=== PATIENT | female | born 1980 | race African-American/Black ===

== ENCOUNTER → 2016-07-19 | Outpatient (CLI) | payer OTHER ==
[~2016-07-19] MED LIST: AMOX500T PO; ATEN50TA PO; BACT800T5 PO; CEPH-460 PO; FERR325T PO; IBUP800T23 PO; INFE50IN2 IV; TRAM50TA PO
[2016-07-19 07:44] LABS: MEAN CORPUSCULAR HGB CONC 28.7 % (32.0-36.0)
[2016-07-19 08:04] LABS: AUTOMATED NEUTROPHIL # 2.8 TH/MM3 (1.8-7.7); BASOPHIL % 0.8 % (0.0-2.0); HEMATOCRIT 27.1 % (35.0-46.0); LYMPH % 25.3 % (9.0-44.0); LYMPHOCYTE # 1.2 TH/MM3 (1.0-4.8); MEAN CELL VOLUME 60.9 FL (80.0-100.0); MEAN CORPUSCULAR HEMOGLOBIN 17.5 PG (27.0-34.0); MONO % 14.4 % (0.0-8.0); NEUT % 58.5 % (16.0-70.0); PLATELET COUNT 181 TH/MM3 (150-450); RED BLOOD COUNT 4.45 MIL/MM3 (4.00-5.30); RED CELL DISTRIBUTION WIDTH 19.4 % (11.6-17.2); WHITE BLOOD COUNT 4.8 TH/MM3 (4.0-11.0)
[2016-07-19 08:05] LABS: HEMO FLAGS AUTO DIFF
[2016-07-19 08:24] LABS: TRANSFERRIN IRON PROFILE 414 MG/DL (200-360)
[2016-07-19 08:52] LABS: ACANTHOCYTES OCC (NORMAL); KERATOCYTES OCC (NORMAL); OVALOCYTES 1+ (NORMAL)
[2016-07-19 08:53] LABS: PLATELET ESTIMATE SMEAR NORMAL (NORMAL); PLATELET MORPHOLOGY NORMAL (NORMAL); SCAN/DIFF AUTO DIFF CONFIRMED
== END ==
LOC: CLAB 07:40
PROVIDERS: ATTEND Nurse Practitioner Family
DX: N92.0 Excessive and frequent menstruation with regular cycle (principal); D50.9 Iron deficiency anemia, unspecified
CPT/HCPCS: 36415; 83540; 83550; 85025

== ENCOUNTER 2016-09-05 21:35 | Emergency (ER) | payer OTHER ==
[~2016-09-05] VITALS: Ht 172.7 cm; Wt 78.0 kg
[~2016-09-05 21:35] MED LIST changes: -BACT800T5 PO; -CEPH-460 PO; -IBUP800T23 PO; -INFE50IN2 IV; -TRAM50TA PO
[2016-09-05 21:38] VITALS: BP 143/98; PULSE 82; RESP 16; TEMP 98.6; O2SAT 100
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
[2016-09-05] MEDS ORDERED: ACETAMINOPHEN 500 MG CPLT PO ONE (22:00)
[2016-09-05 22:15] LABS: BLOOD, URINE NEG (NEG); COMMENT (UR) CULT NOT INDICATED; CULTURE IF INDICATED CULT NOT INDICATED; GLUCOSE,URINE NEG (NEG); KETONE, URINE NEG (NEG); MUCUS URINE FEW /lpf (OCC); NITRITE,URINE NEG (NEG); SQUAMOUS EPITHELIAL CELL URINE 2 /hpf (0-5); URINE COLOR YELLOW (YELLW/STRAW)
[2016-10-08] MEDS ORDERED: INFE50IN2 IV (13:28)
== END 2016-09-05 22:50 | disposition home or self-care (01) ==
LOC: NEPE 21:35
DX: S00.83XA Contusion of other part of head, initial encounter (principal); I10 Essential (primary) hypertension; D64.9 Anemia, unspecified; F17.210 Nicotine dependence, cigarettes, uncomplicated; W22.8XXA Striking against or struck by other objects, initial encounter; Y92.9 Unspecified place or not applicable
CPT/HCPCS: 81001; 99283

== ENCOUNTER → 2016-10-14 | Outpatient (CLI) | payer OTHER ==
[~2016-10-14] MED LIST changes: -AMOX500T PO; -FERR325T PO; +IBUP800T23 PO; +INFE50IN2 IV; +TRAM50TA PO
[2016-10-14 15:23] LABS: BLOOD, URINE NEG (NEG); COMMENT (UR) CULT NOT INDICATED; CULTURE IF INDICATED CULT NOT INDICATED; GLUCOSE,URINE NEG (NEG); KETONE, URINE NEG (NEG); MUCUS URINE MOD /lpf (OCC); NITRITE,URINE NEG (NEG); PH, URINE 5.5 (5.0-8.5); SQUAMOUS EPITHELIAL CELL URINE 5 /hpf (0-5); URINE COLOR YELLOW (YELLW/STRAW)
== END ==
LOC: CLAB 14:43
PROVIDERS: ATTEND Physician Assistant Medical
DX: R30.0 Dysuria (principal)
CPT/HCPCS: 81001

== ENCOUNTER 2016-10-17 13:19 | Emergency (ER) | payer OTHER ==
[~2016-10-17] VITALS: Ht 167.6 cm; Wt 77.0 kg
[~2016-10-17 13:19] MED LIST changes: -IBUP800T23 PO; -TRAM50TA PO
[2016-10-17 13:23] VITALS: BP 142/99; PULSE 64; RESP 16; TEMP 98.2; O2SAT 100
[2016-10-17 13:35] LABS: MEAN CORPUSCULAR HGB CONC 29.9 % (32.0-36.0)
[2016-10-17 13:41] VITALS: BP_SYST 138; BP_SYST 140; BP_SYST 141; BP_DIAS 79; BP_DIAS 82; BP_DIAS 86; RESP 18
[2016-10-17] MEDS ORDERED: traMADol HCL 50 MG TAB PO ONE (14:00)
[2016-10-17] MEDS ORDERED: IBUPROFEN 800 MG TAB PO ONE (14:00)
--- NOTE | 2016-10-17 14:00 | PD ---
HPI . 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 She states that she has not been able to see a ROLL PANNER because of insurance. She reports that she now has insurance so should be able to see ROLL PANNER in the near future. She reports no new or different symptoms today. Pain is described as crampy and constant and rated 9/10. No modifying factors. PFSH Past Medical History Hx Anticoagulant Therapy: No Anemia: Yes Cardiovascular Problems: Yes (HTN) Diabetes: No Diminished Hearing: No Gastrointestinal Disorders: No Genitourinary: No Headaches: Yes Hypertension: Yes Musculoskeletal: No Neurologic: No Reproductive: No Respiratory: No Immunizations Current: Yes Migraines: Yes Pneumonia: Yes Tetanus Vaccination: > 5 Years Influenza Vaccination: No PNEUMOCCOCAL Vaccine (Year): 2 ?: Not : 4 Para: 4 Miscarriage: 0 : 0 Tubal Ligation: Yes (2007) Past Surgical History Abdominal Surgery: Yes ( 12/15/05, TUBAL LIGATION 12/15/05) Section: Yes (X2) Neurologic Surgery: No Other Surgery: Yes Social History Alcohol Use: Yes (OCCASSIONAL) Tobacco Use: Yes (1 PPD) Substance Use: Yes (DENIES) Allergies-Medications (Allergen,Severity, Reaction): Coded Allergies: No Known Allergies (Unverified , 10/17/16) Reported Meds & Prescriptions Reported Meds & Active Scripts Active Tramadol (Tramadol HCl) 50 Mg Tab 50 Mg PO Q4H PRN Ibuprofen 800 Mg Tab 800 Mg PO Q8H PRN Atenolol 50 Mg Tab 50 Mg PO DAILY Reported Infed Inj (Iron Dextran) 100 Mg/2 Ml Inj 200 Mg IV WEEKLY Review of Systems Genitourinary: Positive: Pelvic Pain, Vaginal Bleeding Physical Exam Narrative GENERAL: Patient is awake and alert and in no acute distress. SKIN: Warm and dry. HEAD: Atraumatic. Normocephalic. EYES: Pupils equal and round. ENT: No nasal bleeding or discharge. Mucous membranes pink and moist. NECK: Trachea midline. Neck is supple. CARDIOVASCULAR: Regular rate and rhythm. RESPIRATORY: No accessory muscle use. GASTROINTESTINAL: Abdomen soft. Suprapubic tenderness. Nondistended. MUSCULOSKELETAL: No obvious deformities. No edema. NEUROLOGICAL: Awake and alert. No obvious cranial nerve deficits. Motor grossly within normal limits. Normal speech. PSYCHIATRIC: Appropriate mood and affect; insight and judgment normal. Data Data Last Documented VS Vital Signs Date Time Temp Pulse Resp B/P Pulse Ox O2 Delivery O2 Flow Rate FiO2 10/17/16 13:41 72 18 141/79 66 18 138/82 86 18 140/86 10/17/16 13:23 98.2 100 Orders Complete Blood Count With Diff (10/17/16 13:33) Ed Urine Pregnancytest Poc (10/17/16 13:33) Orthostatic Vital Signs (10/17/16 13:33) Ibuprofen (Motrin) (10/17/16 14:00) Tramadol (Ultram) (10/17/16 14:00) Labs Laboratory Tests Test 10/17/16 13:30 White Blood Count 5.2 TH/MM3 Red Blood Count 4.58 MIL/MM3 Hemoglobin 10.0 GM/DL Hematocrit 33.4 % Mean Corpuscular Volume 72.9 FL Mean Corpuscular Hemoglobin 21.8 PG Mean Corpuscular Hemoglobin 29.9 % Concent Red Cell Distribution Width 25.9 % Platelet Count 323 TH/MM3 Mean Platelet Volume 7.2 FL Neutrophils (%) (Auto) 71.2 % Lymphocytes (%) (Auto) 19.0 % Monocytes (%) (Auto) 8.6 % Eosinophils (%) (Auto) 0.8 % Basophils (%) (Auto) 0.4 % Neutrophils # (Auto) 3.8 TH/MM3 Lymphocytes # (Auto) 1.0 TH/MM3 Monocytes # (Auto) 0.4 TH/MM3 Eosinophils # (Auto) 0.0 TH/MM3 Basophils # (Auto) 0.0 TH/MM3 CBC Comment AUTO DIFF Differential Comment AUTO DIFF CONFIRMED MDM Medical Decision Making Medical Screen Exam Complete: Yes Emergency Medical Condition: Yes Differential Diagnosis Differential diagnosis of pelvic pain includes but is not limited to UTI, PID, ectopic , spontaneous AB, constipation, viral illness Narrative Course This patient presents with ongoing pelvic pain. She has had problems for years. I have ordered orthostatic vital signs and a CBC. Assuming that these studies are reasonable, she will be stable for evaluation as an outpatient. Orthostatic vital signs are negative. CBC Diagram 10/17/16 13:30 This patient is hemodynamically stable. Emergency Department evaluation reveals no emergency medical condition. The patient is stable for discharge to home. 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
[2016-10-17 14:03] LABS: AUTOMATED NEUTROPHIL # 3.8 TH/MM3 (1.8-7.7); BASOPHIL % 0.4 % (0.0-2.0); EOSINOPHIL % 0.8 % (0.0-4.0); HEMATOCRIT 33.4 % (35.0-46.0); MEAN CELL VOLUME 72.9 FL (80.0-100.0); MEAN CORPUSCULAR HEMOGLOBIN 21.8 PG (27.0-34.0); MONO % 8.6 % (0.0-8.0); NEUT % 71.2 % (16.0-70.0); PLATELET COUNT 323 TH/MM3 (150-450); RED BLOOD COUNT 4.58 MIL/MM3 (4.00-5.30); RED CELL DISTRIBUTION WIDTH 25.9 % (11.6-17.2); WHITE BLOOD COUNT 5.2 TH/MM3 (4.0-11.0)
[2016-10-17 14:04] LABS: HEMO FLAGS AUTO DIFF
[2016-10-17] MEDS ORDERED: IBUP800T23 PO (14:14)
[2016-10-17] MEDS ORDERED: TRAM50TA PO (14:14)
[2016-10-17 14:25] LABS: SCAN/DIFF AUTO DIFF CONFIRMED
[2016-10-17 14:51] LABS: BLOOD, URINE LARGE (NEG); GLUCOSE,URINE NEG (NEG); KETONE, URINE TRACE mg/dL (NEG); NITRITE,URINE NEG (NEG)
[2016-10-17 14:55] LABS: METHOD OF COLLECTION CLEAN CATCH; URINE COLOR LIGHT-BROWN (YELLW/STRAW)
[2016-10-17 14:56] LABS: COMMENT (UR) CULT NOT INDICATED; CULTURE IF INDICATED CULT NOT INDICATED; RBC, URINE INNUM /hpf (0-3)
[2016-10-17 15:09] VITALS: BP 138/74
== END 2016-10-17 15:11 | disposition home or self-care (01) ==
LOC: PHED 13:19
DX: N93.8 Other specified abnormal uterine and vaginal bleeding (principal); I10 Essential (primary) hypertension
CPT/HCPCS: 81001; 84703; 85025; 99283

== ENCOUNTER 2016-10-23 07:11 | Emergency (ER) | payer OTHER ==
[~2016-10-23] VITALS: Ht 165.1 cm; Wt 80.0 kg
[~2016-10-23 07:11] MED LIST changes: +IBUP800T23 PO; +TRAM50TA PO
[2016-10-23 07:15] VITALS: BP 139/89; PULSE 113; RESP 20; TEMP 99.3; O2SAT 97
[2016-10-23] MEDS ORDERED: CEPH-460 PO (07:54)
[2016-10-23] MEDS ORDERED: BACT800T5 PO (07:54)
[2016-10-23] MEDS ORDERED: IBUP800T23 PO (07:54)
--- NOTE | 2016-10-23 07:54 | PD ---
HPI Chief Complaint: Skin Problem Time Seen by Provider: 07:52 Travel History International Travel<30 days: No Contact w/Intl Traveler<30days: No Traveled to known affect area: No History of Present Illness HPI 35-year-old female presents to the emergency Department with complaint of an area of redness, swelling, pain to her left forearm that is draining white drainage 2 days. Denies fever, vomiting. Denies paresthesias, loss of sensation, decreased range motion, decreased strength to the affected extremity. Has not taken any medications to alleviate her symptoms. Has squeezed the area to drain it. No known allergies. Has no other medical complaints. No other modifying factors or associated signs and symptoms. PFSH Past Medical History Hx Anticoagulant Therapy: No Anemia: Yes Cardiovascular Problems: No Chemotherapy: No Cerebrovascular Accident: No Diabetes: No Diminished Hearing: No Gastrointestinal Disorders: No Genitourinary: No Headaches: Yes Hypertension: Yes Musculoskeletal: No Neurologic: No Reproductive: No Respiratory: No Immunizations Current: Yes Migraines: Yes Pneumonia: Yes PNEUMOCCOCAL Vaccine (Year): 2 ?: Not LMP: 10/17/16 : 4 Para: 4 Miscarriage: 0 : 0 Tubal Ligation: Yes (2007) Past Surgical History Abdominal Surgery: Yes ( 12/15/05, TUBAL LIGATION 12/15/05) Section: Yes (X2) Hysterectomy: No Neurologic Surgery: No Other Surgery: Yes Social History Alcohol Use: Yes (OCCASSIONAL) Tobacco Use: Yes (1 PPD) Substance Use: Yes (DENIES) Allergies-Medications (Allergen,Severity, Reaction): Coded Allergies: No Known Allergies (Unverified , 10/17/16) Reported Meds & Prescriptions Reported Meds & Active Scripts Active Ibuprofen 800 Mg Tab 800 Mg PO Q6HR PRN Bactrim DS (Sulfamethoxazole-Trimethoprim) 800-160 Mg Tab 1 Tab PO BID 10 Days Keflex (Cephalexin) 500 Mg Cap 500 Mg PO Q6H 10 Days Tramadol (Tramadol HCl) 50 Mg Tab 50 Mg PO Q4H PRN Ibuprofen 800 Mg Tab 800 Mg PO Q8H PRN Atenolol 50 Mg Tab 50 Mg PO DAILY Reported Infed Inj (Iron Dextran) 100 Mg/2 Ml Inj 200 Mg IV WEEKLY Review of Systems Except as stated in HPI: all other systems reviewed are Neg Physical Exam Narrative GENERAL: Well-nourished, well-developed female patient, in no acute distress; afebrile, nontoxic-appearing SKIN: There is an indurated area to the proximal left forearm which measures about 1.5 cm in diameter. It is nonfluctuant and draining purulent drainage. There is a zone of inflammation around it but no lymphangitis. HEAD: Atraumatic. Normocephalic. EYES: Pupils equal and round. No scleral icterus. No injection or drainage. ENT: Mucosa pink and moist. Airway patent. NECK: Trachea midline. CARDIOVASCULAR: Regular rate. RESPIRATORY: No accessory muscle use. GASTROINTESTINAL: Rounded. MUSCULOSKELETAL: No obvious deformities. No clubbing. No cyanosis. No edema. NEUROLOGICAL: Awake and alert. Oriented 3. No obvious cranial nerve deficits. Motor grossly within normal limits. Normal speech. PSYCHIATRIC: Appropriate mood and affect; insight and judgment normal. Data Data Last Documented VS Vital Signs Date Time Temp Pulse Resp B/P Pulse Ox O2 Delivery O2 Flow Rate FiO2 10/23/16 07:15 99.3 113 20 139/89 97 Room Air Orders Ibuprofen (Motrin) (10/23/16 08:00) Wound Culture And Gram Stain (10/23/16 07:51) Tetanus/Diphtheria Tox Adult (Tetanus/Di (10/23/16 08:00) MDM Medical Decision Making Medical Screen Exam Complete: Yes Emergency Medical Condition: Yes Medical Record Reviewed: Yes Differential Diagnosis Abscess, cellulitis, folliculitis Narrative Course 35-year-old female physical exam consistent with an abscess of the left proximal forearm. Patient is afebrile and nontoxic-appearing. She denies fever , vomiting. The abscess is nonfluctuant and draining small amount of serous/ purulent drainage. Wound culture pending. Tetanus updated in the ER. Temperature recheck 98.8 and heart rate recheck 88 bpm. Ibuprofen administered in the ER. Bactrim, Keflex, ibuprofen prescribed for home. Instructed patient to follow up with primary care provider. Patient verbalizes understanding and agreement with treatment plan. Patient is medically cleared and stable for discharge. Discussed reasons to return to the emergency department. Patient agrees with treatment plan. The patients vital signs are stable and the patient is stable for outpatient follow-up and treatment. Patient discharged home, stable and in no acute distress. Diagnosis Primary Impression: Skin abscess Qualified Code: L02.414 - Cutaneous abscess of left upper extremity Referrals: Primary Care Physician Patient Instructions: Abscess (ED), Abscess Follow-up (ED), General Instructions Departure Forms: Tests/Procedures, Work Release Enter return to work date: Oct 24, 2016 Additional Instructions: Complete full course of antibiotics Warm compresses to the affected area Keep area clean and dry Ibuprofen or Tylenol as directed and as needed for pain and inflammation Follow-up with primary care provider Return to emergency department immediately with worsening of symptoms Med/Other Pt SpecificInfo: Prescription(s) given Scripts Ibuprofen 800 Mg [id number] Mg PO Q6HR PRN (PAIN) #30 TAB Ref 0 Prov:Carrie Blanco 10/23/16 Sulfamethoxazole-Trimethoprim (Bactrim DS)800-160 Mg Tab1 Tab PO BID 10 Days Ref 0 Prov:Carrie Blanco 10/23/16 Cephalexin (Keflex)500 Mg [id number] Mg PO Q6H 10 Days Ref 0 Prov:Carrie Blanco 10/23/16 Disposition: 01 DISCHARGE HOME Condition: Stable Carrie Blanco Oct 23, 2016 07:54
[2016-10-23] MEDS ORDERED: TETANUS/DIPHTHERIA TOXOID ADULT 0.5 ML VIAL IM ONE (08:00)
[2016-10-23] MEDS ORDERED: IBUPROFEN 800 MG TAB PO ONE (08:00)
== END 2016-10-23 08:21 | disposition home or self-care (01) ==
LOC: NEPK 07:11
DX: L02.414 Cutaneous abscess of left upper limb (principal); B95.62 Methicillin resistant Staphylococcus aureus infection as the cause of diseases classified elsewhere; I10 Essential (primary) hypertension; F17.200 Nicotine dependence, unspecified, uncomplicated; Z23 Encounter for immunization; Z86.2 Personal history of diseases of the blood and blood-forming organs and certain disorders involving the immune mechanism; Z86.69 Personal history of other diseases of the nervous system and sense organs
CPT/HCPCS: 86403; 87070; 87186; 87205; 90471; 90714

== ENCOUNTER → 2016-12-08 | Outpatient (CLI) | payer OTHER ==
[~2016-12-08] MED LIST changes: +ATEN100T PO; +BACT800T5 PO; +CEPH-460 PO; +HYDR-3533 PO; +HYDR12.56 PO
[2016-12-08 08:29] LABS: HEMATOCRIT 26.9 % (35.0-46.0); MEAN CELL VOLUME 66.8 FL (80.0-100.0); MEAN CORPUSCULAR HEMOGLOBIN 20.1 PG (27.0-34.0); PLATELET COUNT 262 TH/MM3 (150-450); RED BLOOD COUNT 4.03 MIL/MM3 (4.00-5.30); RED CELL DISTRIBUTION WIDTH 19.8 % (11.6-17.2); REVIEW FLAG FINAL; WHITE BLOOD COUNT 5.5 TH/MM3 (4.0-11.0)
[2016-12-08 08:44] LABS: TRANSFERRIN IRON PROFILE 360 MG/DL (200-360)
== END ==
LOC: CLAB 08:01
PROVIDERS: ATTEND Nurse Practitioner Family
DX: D50.9 Iron deficiency anemia, unspecified (principal)
CPT/HCPCS: 36415; 83540; 83550; 85027

== ENCOUNTER 2016-12-18 01:47 | Observation (INO) | payer OTHER ==
[2016-12-18] VITALS (21 sets, daily range): BP systolic 118–202; BP diastolic 73–121; PULSE 63–96; RESP 14–21; TEMP 96.6–98.9; O2SAT 95–100
[~2016-12-18] VITALS: Ht 167.6 cm; Wt 80.0 kg
[~2016-12-18 01:47] MED LIST changes: -ATEN100T PO; -BACT800T5 PO; -CEPH-460 PO; -HYDR12.56 PO; -IBUP800T23 PO; -TRAM50TA PO
[2016-12-18 03:14] LABS: AUTOMATED NEUTROPHIL # 3.6 TH/MM3 (1.8-7.7); BASOPHIL % 0.4 % (0.0-2.0); EOSINOPHIL % 0.3 % (0.0-4.0); HEMATOCRIT 22.9 % (35.0-46.0); LYMPH % 26.8 % (9.0-44.0); LYMPHOCYTE # 1.5 TH/MM3 (1.0-4.8); MEAN CELL VOLUME 70.3 FL (80.0-100.0); MEAN CORPUSCULAR HEMOGLOBIN 21.3 PG (27.0-34.0); MEAN CORPUSCULAR HGB CONC 30.2 % (32.0-36.0); MONO % 9.3 % (0.0-8.0); NEUT % 63.2 % (16.0-70.0); PLATELET COUNT 326 TH/MM3 (150-450); RED BLOOD COUNT 3.26 MIL/MM3 (4.00-5.30); RED CELL DISTRIBUTION WIDTH 22.9 % (11.6-17.2); WHITE BLOOD COUNT 5.7 TH/MM3 (4.0-11.0)
[2016-12-18] MEDS ORDERED: ATENOLOL 50 MG TAB PO ONE (03:30)
[2016-12-18] MEDS ORDERED: ACETAMINOPHEN 325 MG TAB PO ONE (03:30)
--- NOTE | 2016-12-18 03:30 | PD ---
HPI Chief Complaint: Chest Pain Time Seen by Provider: 03:26 Travel History International Travel<30 days: No Contact w/Intl Traveler<30days: No Traveled to known affect area: No History of Present Illness HPI 36-year-old female patient with history of hypertension, ran out of her atenolol , presents to the ER today with one-day history of elevated blood pressure, bilateral leg swelling, chest discomfort which she states had been an 8 out of 10, shortness of breath. She states that she thinks is because her blood pressure is elevated. She states that it is now improving and she is not having a chest pains now. She denies any fevers, vomiting, abdominal pains, or other symptoms. Modifying Factors: None Associated Signs & Symptoms: Elevated blood pressure, chest discomfort, shortness of breath, leg swelling Risk Factors: History of hypertension PFSH Past Medical History Hx Anticoagulant Therapy: No Anemia: Yes Cardiovascular Problems: No Chemotherapy: No Cerebrovascular Accident: No Diabetes: No Diminished Hearing: No Gastrointestinal Disorders: No Genitourinary: No Headaches: Yes Hypertension: Yes Immune Disorder: No Musculoskeletal: No Neurologic: No Reproductive: No Respiratory: No Immunizations Current: Yes Migraines: Yes Pneumonia: Yes Tetanus Vaccination: < 5 Years PNEUMOCCOCAL Vaccine (Year): 2 ?: Not LMP: 12/12/2016 : 4 Para: 4 Miscarriage: 0 : 0 Ectopic : No Ovarian Cysts: No Tubal Ligation: Yes (2007) Past Surgical History Abdominal Surgery: Yes ( 12/15/05, TUBAL LIGATION 12/15/05) AICD: No Section: Yes (X2) Gynecologic Surgery: Yes (C SECTION) Hysterectomy: No Neurologic Surgery: No Other Surgery: Yes Social History Alcohol Use: Yes (OCCASSIONAL) Tobacco Use: Yes (1 PPD) Substance Use: No (DENIES) Allergies-Medications (Allergen,Severity, Reaction): Coded Allergies: *MDRO Multi-Drug Resistant Organism (Verified Adverse Reaction, Unknown, ) 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 Awake and oriented 3. SKIN: Focused skin assessment warm/dry. HEAD: Atraumatic. Normocephalic. EYES: Pupils equal and round. No scleral icterus. No injection or drainage. ENT: No nasal bleeding or discharge. Mucous membranes pink and moist. NECK: Trachea midline. No JVD. CARDIOVASCULAR: Regular rate and rhythm. No murmur appreciated. RESPIRATORY: No accessory muscle use. Clear to auscultation. Breath sounds equal bilaterally. GASTROINTESTINAL: Abdomen soft, non-tender, nondistended. Hepatic and splenic margins not palpable. MUSCULOSKELETAL: No obvious deformities. No clubbing. No cyanosis. No edema. NEUROLOGICAL: Awake and alert. No obvious cranial nerve deficits. Motor grossly within normal limits. Normal speech. PSYCHIATRIC: Appropriate mood and affect; insight and judgment normal. Data Data Last Documented VS Vital Signs Date Time Temp Pulse Resp B/P (MAP) Pulse Ox O2 Delivery O2 Flow Rate FiO2 12/18/16 03:04 98 Room Air 12/18/16 02:51 22 12/18/16 01:48 98.9 94 Orders Orders Electrocardiogram (12/18/16 02:55) Complete Blood Count With Diff (12/18/16 02:55) Basic Metabolic Panel (Bmp) (12/18/16 02:55) Ckmb (Isoenzyme) Profile (12/18/16 02:55) Troponin I (12/18/16 02:55) Chest, Single Ap (12/18/16 02:55) Iv Access Insert/Monitor (12/18/16 02:55) Ecg Monitoring (12/18/16 02:55) Oxygen Administration (12/18/16 02:55) Oximetry (12/18/16 02:55) Atenolol (Tenormin) (12/18/16 03:30) Acetaminophen (Tylenol) (12/18/16 03:30) CKMB (12/18/16 03:05) CKMB% (12/18/16 03:05) Type And Screen (12/18/16 03:59) Red Blood Cells (Rbc) (12/18/16 03:59) Blood Product Administration .UPON TRANSFUSION (12/18/16 03:59) Sodium Chlor 0.9% 250 Ml Inj (Ns 250 Ml (12/18/16 04:00) Admit Order (Ed Use Only) (12/18/16 04:12) Labs Laboratory Tests Test 12/18/16 03:05 White Blood Count 5.7 TH/MM3 Red Blood Count 3.26 MIL/MM3 Hemoglobin 6.9 GM/DL Hematocrit 22.9 % Mean Corpuscular Volume 70.3 FL Mean Corpuscular Hemoglobin 21.3 PG Mean Corpuscular Hemoglobin Concent 30.2 % Red Cell Distribution Width 22.9 % Platelet Count 326 TH/MM3 Mean Platelet Volume 7.0 FL Neutrophils (%) (Auto) 63.2 % Lymphocytes (%) (Auto) 26.8 % Monocytes (%) (Auto) 9.3 % Eosinophils (%) (Auto) 0.3 % Basophils (%) (Auto) 0.4 % Neutrophils # (Auto) 3.6 TH/MM3 Lymphocytes # (Auto) 1.5 TH/MM3 Monocytes # (Auto) 0.5 TH/MM3 Eosinophils # (Auto) 0.0 TH/MM3 Basophils # (Auto) 0.0 TH/MM3 CBC Comment DIFF FINAL Differential Comment Blood Urea Nitrogen 11 MG/DL Creatinine 0.97 MG/DL Random Glucose 93 MG/DL Calcium Level 8.0 MG/DL Sodium Level 140 MEQ/L Potassium Level 3.3 MEQ/L Chloride Level 107 MEQ/L Carbon Dioxide Level 25.2 MEQ/L Anion Gap 8 MEQ/L Estimat Glomerular Filtration Rate 80 ML/MIN Total Creatine Kinase 148 U/L Creatine Kinase MB 0.5 NG/ML Troponin I LESS THAN 0.02 NG/ML MDM Medical Decision Making Medical Screen Exam Complete: Yes Emergency Medical Condition: Yes Medical Record Reviewed: Yes Interpretation(s) EKG shows NSR, no ST elevation or depression, and no arrhythmias. No significant T-wave inversions. Last 24 hours Impressions Chest X-Ray 12/18/16 0255 Signed Impressions: Service Date/Time: Sunday, December 18, 2016 03:17 - CONCLUSION: Normal examination. Tae Tripp MD Laboratory Tests Test 12/18/16 03:05 Red Blood Count 3.26 MIL/MM3 (4.00-5.30) Hemoglobin 6.9 GM/DL (11.6-15.3) Hematocrit 22.9 % (35.0-46.0) Mean Corpuscular Volume 70.3 FL (80.0-100.0) Mean Corpuscular Hemoglobin 21.3 PG (27.0-34.0) Mean Corpuscular Hemoglobin Concent 30.2 % (32.0-36.0) Red Cell Distribution Width 22.9 % (11.6-17.2) Monocytes (%) (Auto) 9.3 % (0.0-8.0) Calcium Level 8.0 MG/DL (8.5-10.1) Potassium Level 3.3 MEQ/L (3.5-5.1) Estimat Glomerular Filtration Rate 80 ML/MIN (>89) Troponin I LESS THAN 0.02 NG/ML Differential Diagnosis Elevated blood pressure, chest discomfort, shortness of breath: Hypertensive urgency versus ACS versus dysrhythmias versus metabolic issues versus anxiety Narrative Course EKG did not show any acute changes and cardiac enzymes negative. However, patient has a low hemoglobin of 6.9. On further questioning, she has very heavy menses from dysfunctional uterine bleeding and uterine fibroids. However , she is not currently having a vaginal bleeding. I suspect that this could be contributing to her chest discomfort. She was ordered 2 units of PRBCs. My plan would be to admit her for further treatment. Case was discussed with Dr. Pina for admission. Diagnosis Primary Impression: Chest pain Additional Impression: Symptomatic anemia Admitting Information Admitting Physician Requests: Admit Bhavin Smith MD Dec 18, 2016 03:30
[2016-12-18 03:31] LABS: HEMO FLAGS DIFF FINAL
[2016-12-18 03:40] LABS: ANION GAP 8 MEQ/L (5-15); BICARBONATE 25.2 MEQ/L (21.0-32.0); BLOOD UREA NITROGEN 11 MG/DL (7-18); CHLORIDE 107 MEQ/L (98-107); GLOMERULAR FILTRATION RATE 80 ML/MIN (>89); POTASSIUM 3.3 MEQ/L (3.5-5.1); SODIUM (NA) 140 MEQ/L (136-145)
[2016-12-18 03:43] LABS: CREATINE KINASE 148 U/L (26-192)
--- NOTE | 2016-12-18 03:45 | RADRPT ---
EXAM DATE/TIME: 12/18/2016 03:17 [facility] COMPARISON: No previous studies available for comparison. INDICATIONS : Chest pain. MEDICAL HISTORY : Hypertension. Anemia SURGICAL HISTORY : None. ENCOUNTER: Initial ACUITY: 1 day PAIN SCORE: 3/10 LOCATION: Bilateral chest FINDINGS: A single view of the chest demonstrates the lungs to be symmetrically aerated without evidence of mas s, infiltrate or effusion. The cardiomediastinal contours are unremarkable. Osseous structures are intact. CONCLUSION: Normal examination. Tae Tripp MD on December 18, 2016 at 3:43 Board Certified Radiologist. This report was verified electronically.
[2016-12-18 03:55] LABS: CKMB 0.5 NG/ML (0.5-3.6)
--- NOTE | 2016-12-18 04:25 | HHI.HP ---
[facility] Ludivina Tucker MD Admission Diagnosis chest pain/symptomatic anemia Diagnoses: (1) HTN (hypertension) Diagnosis: Principal (2) Chest pain Diagnosis: Principal (3) Anemia Diagnosis: Principal (4) Hypokalemia Diagnosis: Principal (5) Dehydration Diagnosis: Principal (6) Tobacco abuse Diagnosis: Principal Travel History International Travel<30 Days: No Contact w/Intl Traveler <30 Da: No Traveled to Known Affected Are: No History of Present Illness This is a 36-year-old female with a PMH of HTN, Dysfunctional Uterine Bleeding, Iron Deficiency Anemia and Tobacco Abuse who presented to the ER with complaints of elevated BP and chest pain. States that she normally takes Atenolol 50mg po qd, however she ran out of meds and has had intermittent chest pain and SOB today. Denies fever, chills, cough or sick contacts. On arrival, BP 202/121, HR 94, O2 sat 99% on RA, Afebrile. Currently 149/81, HR 79. Hgb 6.9. Follows w/ Dr. Tucker as outpatient, referred for Iron Infusions, 1x/wk for 5wks, today had 2nd infusion. Previous labs from on 12/08/16 w/ Hgb 8.4. Reports ongoing heavy bleeding from fibroids. 2u pRBC ordered in ER, pending transfusion. CXR w/ no acute findings. Review of Systems Except as stated in HPI: all other systems reviewed are Neg ROS: 14 point review of systems otherwise negative. Past Family Social History Past Medical History PMH: HTN, Dysfunctional Uterine Bleeding, Iron Deficiency Anemia and Tobacco Abuse Past Surgical History PAST SURGICAL HISTORY: , Tubal Ligation Allergies: Coded Allergies: *MDRO Multi-Drug Resistant Organism (Verified Adverse Reaction, Unknown, ) MRSA Wound Arm 10/2016 Family History PAST FAMILY HISTORY: Reviewed. No h/o DM or CAD Social History PAST SOCIAL HISTORY: Occasional alcohol. Smokes 1ppd. Negative for drugs. Physical Exam Vital Signs Vital Signs Date Time Temp Pulse Resp B/P (MAP) Pulse Ox O2 Delivery O2 Flow Rate FiO2 12/18/16 03:04 98 Room Air 12/18/16 02:51 22 12/18/16 01:48 98.9 94 15 202/121 (148) 99 Room Air Physical Exam PE: GENERAL: Young black female in no acute distress, resting comfortably. HEENT: PERRLA, EOMI. No scleral icterus or conjunctival pallor. No lid lag or facial droop. CARDIOVASCULAR: Regular rate and rhythm. No obvious murmurs to auscultation. No chest tenderness to palpation. RESPIRATORY: No obvious rhonchi or wheezing. Clear to auscultation. Breath sounds equal bilaterally. GASTROINTESTINAL: Abdomen soft, non-tender, nondistended. BS normal. MUSCULOSKELETAL: Extremities without clubbing, cyanosis, or edema. No obvious deformities. NEUROLOGICAL: Awake, alert and oriented x4. No focal neurologic deficits. Moving both upper and lower extremities spontaneously. Laboratory Laboratory Tests Test 12/18/16 03:05 White Blood Count 5.7 Red Blood Count 3.26 Hemoglobin 6.9 Hematocrit 22.9 Mean Corpuscular Volume 70.3 Mean Corpuscular Hemoglobin 21.3 Mean Corpuscular Hemoglobin Concent 30.2 Red Cell Distribution Width 22.9 Platelet Count 326 Mean Platelet Volume 7.0 Neutrophils (%) (Auto) 63.2 Lymphocytes (%) (Auto) 26.8 Monocytes (%) (Auto) 9.3 Eosinophils (%) (Auto) 0.3 Basophils (%) (Auto) 0.4 Neutrophils # (Auto) 3.6 Lymphocytes # (Auto) 1.5 Monocytes # (Auto) 0.5 Eosinophils # (Auto) 0.0 Basophils # (Auto) 0.0 CBC Comment DIFF FINAL Differential Comment Blood Urea Nitrogen 11 Creatinine 0.97 Random Glucose 93 Calcium Level 8.0 Sodium Level 140 Potassium Level 3.3 Chloride Level 107 Carbon Dioxide Level 25.2 Anion Gap 8 Estimat Glomerular Filtration Rate 80 Total Creatine Kinase 148 Creatine Kinase MB 0.5 Troponin I LESS THAN 0.02 Result Diagram: 12/18/1630412/18/16304 Caprini VTE Risk Assessment Caprini VTE Risk Assessment: No/Low Risk (score <= 1) Caprini Risk Assessment Model Point Value = 1 Point Value = 2 Point Value = 3 Point Value = 5 Age 41-60 Minor surgery BMI > 25 kg/m2 Swollen legs Varicose veins or History of unexplained or recurrent spontaneous Oral contraceptives or hormone replacement Sepsis (< 1 month) Serious lung disease, including pneumonia (< 1 month) Abnormal pulmonary function Acute myocardial infarction Congestive heart failure (< 1 month) History of inflammatory bowel disease Medical patient at bed rest Age 61-74 Arthroscopic surgery Major open surgery (> 45 min) Laparoscopic surgery (> 45 min) Malignancy Confined to bed (> 72 hours) Immobilizing plaster cast Central venous access Age >= 75 History of VTE Family history of VTE Factor V Leiden Prothrombin [id number] Lupus anticoagulant Anticardiolipin antibodies Elevated serum homocysteine Heparin-induced thrombocytopenia Other congenital or acquired thrombophilia Stroke (< 1 month) Elective arthroplasty Hip, pelvis, or leg fracture Acute spinal cord injury (< 1 month) Prophylaxis Regimen Total Risk Factor Score Risk Level Prophylaxis Regimen 0-1 Low Early ambulation 2 Moderate Order ONE of the following: *Sequential Compression Device (SCD) *Heparin 5000 units SQ BID 3-4 Higher Order ONE of the following medications: *Heparin 5000 units SQ TID *Enoxaparin/Lovenox 40 mg SQ daily (WT < 150 kg, CrCl > 30 mL/min) *Enoxaparin/Lovenox 30 mg SQ daily (WT < 150 kg, CrCl > 10-29 mL/min) *Enoxaparin/Lovenox 30 mg SQ BID (WT < 150 kg, CrCl > 30 mL/min) AND/OR *Sequential Compression Device (SCD) 5 or more Highest Order ONE of the following medications: *Heparin 5000 units SQ TID (Preferred with Epidurals) *Enoxaparin/Lovenox 40 mg SQ daily (WT < 150 kg, CrCl > 30 mL/min) *Enoxaparin/Lovenox 30 mg SQ daily (WT < 150 kg, CrCl > 10-29 mL/min) *Enoxaparin/Lovenox 30 mg SQ BID (WT < 150 kg, CrCl > 30 mL/min) AND *Sequential Compression Device (SCD) Assessment and Plan Problem List: (1) HTN (hypertension) ICD Code: I10 - Essential (primary) hypertension (2) Chest pain ICD Code: R07.9 - Chest pain, unspecified (3) Hypokalemia ICD Code: E87.6 - Hypokalemia (4) Anemia ICD Code: D64.9 - Anemia, unspecified (5) Dehydration ICD Code: E86.0 - Dehydration (6) Tobacco abuse ICD Code: Z72.0 - Tobacco use Assessment and Plan A/P: 1. HTN: Uncontrolled secondary to non-compliance, ran out of Atenolol, BP on arrival 202/121, HR 94, s/p Atenolol 50mg po in ER, repeat BP 140's, will continue to monitor. 2. Chest Pain: Likely secondary to uncontrolled HTN and Anemia. Initial trop negative, EKG w/ no acute findings. Check serial cardiac enzymes, Morphine prn. Hold ASA in light of profound anemia. 3. Anemia: Secondary to Iron Deficiency from DUB, Hgb 6.9, previously 8.1 on . Receiving Iron Infusions 1x/wk for 5wks, today had 2nd infusion. 2u pRBC ordered in ER, pending transfusion. Repeat Hgb/Hct 4. Hypokalemia: Mild. K+ 3.3. Will repeat and replace as needed. 5. Dehydration: GFR 80, BUN/Creat normal, repeat labs after transfusion. 6. Tobacco Abuse: Pt counselled. Ativan prn if needed. 7. DVT Prophylaxis: SCD/Teds. 8. Social work for d/c planning as needed. 9. Case discussed w/ ER physician at length. Maggie Pina MD Dec 18, 2016 04:25
[2016-12-18] MEDS ORDERED: ACETAMINOPHEN 325 MG TAB PO PRN (04:30)
[2016-12-18] MEDS ORDERED: FUROSEMIDE 20 MG/2 ML VIAL IV PUSH PRN (04:30)
[2016-12-18] MEDS ORDERED: ONDANSETRON HCL 4 MG/2 ML VIAL IVP PRN (04:30)
[2016-12-18] MEDS ORDERED: MAGNESIUM HYDROXIDE SUSP 30 ML CUP PO PRN (04:30)
[2016-12-18] MEDS ORDERED: SODIUM CHLORIDE 0.9% FLUSH 10 ML FLUSH IV FLUSH PRN (04:30)
[2016-12-18] MEDS ORDERED: LACTULOSE SYRUP 20 GM/30 ML CUP PO PRN (04:30)
[2016-12-18] MEDS ORDERED: BISACODYL 10 MG SUPP RECTAL PRN (04:30)
[2016-12-18] MEDS ORDERED: SENNOSIDES 8.6 MG TAB PO PRN (04:30)
[2016-12-18] MEDS: MORPHINE SULFATE 4 MG/ML INJ IV PRN ×3 (05:04→17:50)
[2016-12-18] MEDS: SODIUM CHLOR 0.9% 250 ML INJ 250 ML IV ONE ×2 (06:26→07:55)
[2016-12-18] MEDS ORDERED: MISCELLANEOUS PHARMACY INFORMATION OTHER ONE (07:45)
[2016-12-18] MEDS ORDERED: diphenhydrAMINE HCL 50 MG/ML VIAL IV ONE (07:45)
[2016-12-18] MEDS ORDERED: cloNIDine HCL 0.1 MG TAB PO ONE (07:45)
[2016-12-18] MEDS ORDERED: SODIUM CHLORID 0.9% 500 ML INJ 500 ML IV ONE (08:30)
[2016-12-18] MEDS ORDERED: ATENOLOL 50 MG TAB PO SCH (09:00)
--- NOTE | 2016-12-18 09:28 | HHI.PR ---
Subjective Remarks Follow up for anemia, chest pain. Discussed at length with night time RN. Patient had a reaction approximately 15minutes into first blood transfusion with pruritus, chest pain, and elevated BP. RN stopped transfusion, gave benadryl, and itching resolved. No rash or fever. The patient states she has received blood transfusions in the past with no reaction. She also reports continued constant substernal chest pains overnight with associated shortness of breath, worse with any exertion. She states she has had these symptoms in the past when she was anemic. She does continue to smoke cigarettes and has a history of asthma. Of note, patient's mother informed RN that the patient has a "drug problem". Reports that she takes pills from the streets and has used cocaine in the past, unknown if currently using. Objective Vitals Vital Signs Date Time Temp Pulse Resp B/P (MAP) Pulse Ox O2 Delivery O2 Flow Rate FiO2 12/18/16 07:19 98.1 68 16 170/108 (128) 100 12/18/16 06:41 96.6 73 17 182/115 (137) 100 12/18/16 06:31 71 12/18/16 06:26 98.4 67 16 164/93 99 12/18/16 06:13 98.4 69 16 164/93 (116) 100 12/18/16 06:04 12/18/16 06:00 98.4 75 16 164/93 (116) 99 12/18/16 05:00 89 14 138/76 (96) 99 Room Air 12/18/16 04:05 90 16 149/91 (110) 98 Room Air 12/18/16 03:04 98 Room Air 12/18/16 03:00 96 16 163/111 (128) 100 Room Air 12/18/16 02:51 22 12/18/16 01:48 98.9 94 15 202/121 (148) 99 Room Air I/O 12/17/16 12/17/16 12/17/16 12/18/16 12/18/16 12/18/16 06:59 14:59 22:59 06:59 14:59 22:59 Intake Total 240 ml 250 ml Balance 240 ml 250 ml Intake Oral 240 ml Packed Cells 250 ml # Voids 1 Result Diagram: 12/18/1630412/18/16304 Imaging Last Impressions Chest X-Ray 12/18/16 0255 Signed Impressions: Service Date/Time: Sunday, December 18, 2016 03:17 - CONCLUSION: Normal examination. Tae Tripp MD Objective Remarks GENERAL: Well-nourished, well-developed middle aged AA female patient in NAD. SKIN: Warm and dry. No rash. HEENT: Normocephalic. Atraumatic. Pupils equal and round. Mucous membranes pink and moist. CARDIOVASCULAR: Regular rate and rhythm. S1, S2 noted. No murmur appreciated. RESPIRATORY: No accessory muscle use. Clear to auscultation. Breath sounds equal bilaterally. GASTROINTESTINAL: Abdomen soft, non-tender, nondistended. Normoactive bowel sounds x4. MUSCULOSKELETAL: No obvious deformities. Extremities without clubbing, cyanosis , or edema. NEUROLOGICAL: Awake and alert. No obvious cranial nerve deficits. Motor grossly within normal limits. Normal speech. PSYCHIATRIC: Appropriate mood and affect; insight and judgment normal. Medications and IVs Current Medications Medications (Trade) Dose Ordered Sig/Star Route Start Time Stop Time Status Last Admin Sodium Chloride 250 ml @ 15 mls/hr ONCE ONCE IV 12/18/16 04:00 12/18/16 20:39 12/18/16 06:26 (NS Flush) 2 ml UNSCH PRN IV FLUSH 12/18/16 04:30 (NS Flush) 2 ml BID IV FLUSH 12/18/16 09:00 (Zofran Inj) 4 mg Q6H PRN IVP 12/18/16 04:30 (Tylenol) 650 mg Q6H PRN PO 12/18/16 04:30 (Sunspot 5-325 Mg) 1 tab Q4H PRN PO 12/18/16 04:30 (Morphine Inj) 4 mg Q3H PRN IV 12/18/16 04:30 12/18/16 05:04 (Kamilah-Colace) 1 tab BID PO 12/18/16 09:00 (Milk Of Magnesia Liq) 30 ml Q12H PRN PO 12/18/16 04:30 (Senokot) 17.2 mg Q12H PRN PO 12/18/16 04:30 (Dulcolax Supp) 10 mg DAILY PRN RECTAL 12/18/16 04:30 (Lactulose Liq) 30 ml DAILY PRN PO 12/18/16 04:30 (Lasix Inj) 20 mg UNSCH X1 PRN IV PUSH 12/18/16 04:30 12/18/16 18:00 (Pneumovax-23 Inj) 25 mcg ONCE ONCE IM 12/19/16 09:00 12/19/16 09:01 (Tenormin) 50 mg DAILY PO 12/18/16 09:00 Sodium Chloride 500 ml @ 500 mls/hr BOLUS ONCE IV 12/18/16 08:30 12/18/16 09:29 A/P Problem List: (1) HTN (hypertension) ICD Code: I10 - Essential (primary) hypertension (2) Chest pain ICD Code: R07.9 - Chest pain, unspecified (3) Hypokalemia ICD Code: E87.6 - Hypokalemia (4) Anemia ICD Code: D64.9 - Anemia, unspecified (5) Dehydration ICD Code: E86.0 - Dehydration (6) Tobacco abuse ICD Code: Z72.0 - Tobacco use Assessment and Plan 36-year-old female with a PMH of HTN, Dysfunctional Uterine Bleeding, Iron Deficiency Anemia and Tobacco Abuse who presented to the ER with complaints of elevated BP and chest pain. Hypertensive Urgency secondary to Accelerated Hypertension: Uncontrolled secondary to non-compliance, ran out of Atenolol, BP on arrival 202/121. S/p Atenolol 50mg po in ER, repeat BP 140's. Restarted patient's atenolol. Continue to monitor BP, adjust antihypertensives as needed. Chest Pain: Likely secondary to uncontrolled HTN and Symptomatic Anemia. Initial trop negative, EKG w/ no acute findings. Check serial cardiac enzymes, Morphine prn. Hold ASA in light of profound anemia. Patient's mother also reporting drug use, hx of cocaine use, will check UDS. Symptomatic Anemia: Secondary to Iron Deficiency from DUB (recently finished menstrual cycle, 7 days with menorrhagia). Hgb 6.9, previously 8.1 on 12/08/16. Receiving Iron Infusions 1x/wk for 5wks, had 2nd infusion 12/17. 2u pRBC ordered in ER, patient had reaction to first unit, undergoing transfusion reaction protocol. Repeat Hgb/Hct after transfusion. Hypokalemia: Mild. K+ 3.3. Will repeat BMP and replace as needed. Dehydration: GFR 80, BUN/Creat normal, repeat labs after transfusion. Tobacco Abuse: Pt counselled. Ativan prn if needed. ? Drug Abuse: patient's mother reports patient takes pain pills from the streets , also hx of cocaine use. Will check UDS. Case management to provide information on Drug Rehabs/[facility]. DVT Prophylaxis: SCD/Teds. Discharge Planning Discharge pending transfusion, BP control, and improvement of symptoms. Possible discharge late this afternoon or tomorrow morning. Mariajose Barraza PA-C Dec 18, 2016 9:28 am
[2016-12-18] MEDS: SODIUM CHLORIDE 0.9% FLUSH 10 ML FLUSH IV FLUSH SCH ×2 (10:27→20:01)
[2016-12-18] MEDS: DOCUSATE SODIUM 50 MG/SENNA 8.6 MG TAB PO SCH ×2 (10:28→20:34)
--- NOTE | 2016-12-18 15:32 | EKG ---
Date Performed: 12/18/2016 Time Performed: 07:10:23 PTAGE: 36 years EKG: Sinus rhythm WITH FIRST DEGREE AV BLOCK ABNORMAL ECG PREVIOUS TRACING : 12/18/2016 03.00 Compared to prior tracing no significant change DOCTOR: Dany Tolentino Interpretating Date/Time 12/18/2016 15:31:16
--- NOTE | 2016-12-18 15:50 | EKG ---
Date Performed: 12/18/2016 Time Performed: 03:00:49 PTAGE: 36 years EKG: Sinus rhythm NORMAL ECG PREVIOUS TRACING : 05/15/2011 02.45 Compared to prior tracing no significant change DOCTOR: Dany Tolentino Interpretating Date/Time 12/18/2016 15:49:42
[2016-12-18 19:43] LABS: HEMATOCRIT 26.9 % (35.0-46.0); REVIEW FLAG FINAL
--- NOTE | 2016-12-18 22:17 | EKG ---
Date Performed: 12/18/2016 Time Performed: 18:29:42 PTAGE: 36 years EKG: Sinus rhythm WITH FIRST DEGREE AV BLOCK ABNORMAL ECG PREVIOUS TRACING : 12/18/2016 07.10 Compared to prior tracing no significant change DOCTOR: Dany Tolentino Interpretating Date/Time 12/18/2016 22:16:01
[2016-12-19] VITALS (11 sets, daily range): BP systolic 141–170; BP diastolic 80–105; PULSE 20–85; RESP 16–20; TEMP 97.8–99.9; O2SAT 93–99
[2016-12-19] MEDS: MORPHINE SULFATE 4 MG/ML INJ IV PRN (00:13)
[2016-12-19] MEDS ORDERED: cloNIDine HCL 0.1 MG TAB PO ONE (01:30)
[2016-12-19] MEDS ORDERED: ACETAMINOPHEN 325 MG TAB PO PRN (06:45)
[2016-12-19] MEDS ORDERED: SODIUM CHLOR 0.9% 250 ML INJ 250 ML IV ONE (06:45)
[2016-12-19] MEDS ORDERED: diphenhydrAMINE HCL 25 MG CAP PO PRN (06:45)
--- NOTE | 2016-12-19 08:06 | HHI.PR ---
Subjective Remarks Follow up for anemia, chest pain. The patient complains of continued chest discomfort, shortness of breath, and some lightheadedness, worse with exertion. RN reports patient requesting IV morphine for her headache. She denies any other medical complaints at this time. Objective Vitals Vital Signs Date Time Temp Pulse Resp B/P (MAP) Pulse Ox O2 Delivery O2 Flow Rate FiO2 12/19/16 05:44 99.9 81 16 153/92 (112) 93 12/19/16 04:43 98.1 67 18 150/80 (103) 98 12/19/16 04:06 81 12/19/16 01:19 85 18 170/98 (122) 97 12/19/16 00:14 82 12/18/16 23:38 98.4 67 18 118/115 (116) 98 12/18/16 20:51 98.1 77 21 147/94 (111) 100 12/18/16 20:37 77 12/18/16 17:55 20 12/18/16 17:28 98.7 75 18 159/95 (116) 95 12/18/16 17:26 98.7 75 20 159/99 100 12/18/16 14:48 98.7 73 20 136/84 12/18/16 14:17 98.2 72 20 124/77 96 12/18/16 14:12 98.2 72 20 124/77 (93) 12/18/16 09:28 97.8 68 20 143/73 (96) 96 I/O 12/18/16 12/18/16 12/18/16 12/19/16 12/19/16 12/19/16 07:00 15:00 23:00 07:00 15:00 23:00 Intake Total 490 ml 5 ml 1605 ml Balance 490 ml 5 ml 1605 ml Intake Oral 240 ml 600 ml IV Total 500 ml Packed Cells 250 ml 500 ml Blood Product IV Normal Saline Flush 5 ml 5 ml # Voids 1 3 # Bowel Movements 0 Result Diagram: 12/18/16191112/18/16 0305 Imaging Last Impressions Chest X-Ray 12/18/16 0255 Signed Impressions: Service Date/Time: Sunday, December 18, 2016 03:17 - CONCLUSION: Normal examination. Tae Tripp MD Objective Remarks GENERAL: Well-nourished, well-developed middle aged AA female patient in [facility]. SKIN: Warm and dry. No rash. HEENT: Normocephalic. Atraumatic. Pupils equal and round. Mucous membranes pink and moist. CARDIOVASCULAR: Regular rate and rhythm. S1, S2 noted. No murmur appreciated. RESPIRATORY: No accessory muscle use. Clear to auscultation. Breath sounds equal bilaterally. GASTROINTESTINAL: Abdomen soft, non-tender, nondistended. Normoactive bowel sounds x4. MUSCULOSKELETAL: No obvious deformities. Extremities without clubbing, cyanosis , or edema. NEUROLOGICAL: Awake and alert. No obvious cranial nerve deficits. Motor grossly within normal limits. Normal speech. PSYCHIATRIC: Appropriate mood and affect; insight and judgment normal. Medications and IVs Current Medications Medications (Trade) Dose Ordered Sig/Star Route Start Time Stop Time Status Last Admin (NS Flush) 2 ml UNSCH PRN IV FLUSH 12/18/16 04:30 (NS Flush) 2 ml BID IV FLUSH 12/18/16 09:00 12/18/16 20:01 (Zofran Inj) 4 mg Q6H PRN IVP 12/18/16 04:30 (Tylenol) 650 mg Q6H PRN PO 12/18/16 04:30 ([place] 5-325 Mg) 1 tab Q4H PRN PO 12/18/16 04:30 (Morphine Inj) 4 mg Q3H PRN IV 12/18/16 04:30 12/19/16 00:13 (Kamilah-Colace) 1 tab BID PO 12/18/16 09:00 12/18/16 20:34 (Milk Of Magnesia Liq) 30 ml Q12H PRN PO 12/18/16 04:30 (Senokot) 17.2 mg Q12H PRN PO 12/18/16 04:30 (Dulcolax Supp) 10 mg DAILY PRN RECTAL 12/18/16 04:30 (Lactulose Liq) 30 ml DAILY PRN PO 12/18/16 04:30 (Pneumovax-23 Inj) 25 mcg ONCE ONCE IM 12/19/16 09:00 12/19/16 09:01 (Tenormin) 50 mg DAILY PO 12/18/16 09:00 12/18/16 10:54 Sodium Chloride 250 ml @ 15 mls/hr ONCE ONCE IV 12/19/16 06:45 12/19/16 23:24 (Tylenol) 650 mg Q4H PRN PO 12/19/16 06:45 (Benadryl) 25 mg Q4H PRN PO 12/19/16 06:45 A/P Problem List: (1) HTN (hypertension) ICD Code: I10 - Essential (primary) hypertension (2) Chest pain ICD Code: R07.9 - Chest pain, unspecified (3) Hypokalemia ICD Code: E87.6 - Hypokalemia (4) Anemia ICD Code: D64.9 - Anemia, unspecified (5) Dehydration ICD Code: E86.0 - Dehydration (6) Tobacco abuse ICD Code: Z72.0 - Tobacco use Assessment and Plan 36-year-old female with a PMH of HTN, Dysfunctional Uterine Bleeding, Iron Deficiency Anemia and Tobacco Abuse who presented to the ER with complaints of elevated BP and chest pain. Hypertensive Urgency secondary to Accelerated Hypertension: Uncontrolled secondary to non-compliance, ran out of Atenolol, BP on arrival 202/121. S/p Atenolol 50mg po in ER, repeat BP 140's. Restarted patient's atenolol, BP still not well controlled, increased atenolol to 100mg daily and given prescription at discharge. Chest Pain: Likely secondary to uncontrolled HTN and Symptomatic Anemia. ACS ruled out with negative serial cardiac enzymes x3 and EKG w/ no acute findings. Hold ASA in light of profound anemia. Patient's mother also reporting drug use , hx of cocaine use, however UDS only positive for opiates. Chest pain improved with treatment of anemia. Symptomatic Anemia: Secondary to Iron Deficiency from DUB (recently finished menstrual cycle, 7 days with menorrhagia). Hgb 6.9, previously 8.1 on 12/08/16. Receiving Iron Infusions 1x/wk for 5wks, had 2nd infusion 12/17. 2u pRBC ordered in ER, patient had reaction to first unit, undergoing transfusion reaction protocol. Repeat Hgb/Hct after 1u pRBC was 7.8. Given another unit pRBCs. Symptoms much improved. Repeat Hgb 8.9. Hypokalemia: Mild. K+ 3.3. Repeat BMP showed improvement, K 3.7. Resolved. Dehydration: GFR 80, BUN/Creat normal, repeat labs improved. Tobacco Abuse: Pt counselled. Ativan prn if needed. ? Drug Abuse: patient's mother reports patient takes pain pills from the streets , also hx of cocaine use. UDS only positive for opiates. Case management to provide information on Drug Rehabs/[facility]. DVT Prophylaxis: SCD/Teds. Discharge Planning Discharge patient to home Condition on discharge: Improved Heart Healthy Diet as tolerated Ad Isa activity Rx written: atenolol 100mg daily Follow-up with primary care physician Dr. Fuentes within 1 week Problem Qualifiers (1) HTN (hypertension): Qualified Codes: I10 - Essential (primary) hypertension Mariajose Barraza PA-C Dec 19, 2016 8:06 am
[2016-12-19] MEDS: ACETAMINOPHEN/HYDROcodone 325 MG/5 MG TAB PO PRN ×2 (08:14→14:27)
[2016-12-19] MEDS ORDERED: ATENOLOL 50 MG TAB PO SCH (09:00)
[2016-12-19] MEDS: SODIUM CHLORIDE 0.9% FLUSH 10 ML FLUSH IV FLUSH SCH (09:00)
[2016-12-19] MEDS ORDERED: PNEUMOCOCCAL POLYVALENT INJ 25 MCG/0.5 ML SYR IM ONE (09:00)
[2016-12-19] MEDS: DOCUSATE SODIUM 50 MG/SENNA 8.6 MG TAB PO SCH (09:01)
[2016-12-19 09:14] LABS: AUTOMATED NEUTROPHIL # 8.3 TH/MM3 (1.8-7.7); BASOPHIL % 0.4 % (0.0-2.0); EOSINOPHIL % 0.3 % (0.0-4.0); HEMATOCRIT 29.4 % (35.0-46.0); HEMO FLAGS DIFF FINAL; LYMPH % 12.4 % (9.0-44.0); LYMPHOCYTE # 1.3 TH/MM3 (1.0-4.8); MEAN CELL VOLUME 72.4 FL (80.0-100.0); MEAN CORPUSCULAR HEMOGLOBIN 21.9 PG (27.0-34.0); MEAN CORPUSCULAR HGB CONC 30.2 % (32.0-36.0); MONO % 7.8 % (0.0-8.0); NEUT % 79.1 % (16.0-70.0); PLATELET COUNT 352 TH/MM3 (150-450); RED BLOOD COUNT 4.06 MIL/MM3 (4.00-5.30); RED CELL DISTRIBUTION WIDTH 23.5 % (11.6-17.2); WHITE BLOOD COUNT 10.5 TH/MM3 (4.0-11.0)
[2016-12-19 09:49] LABS: AST (GOT) 24 U/L (15-37); BICARBONATE 24.4 MEQ/L (21.0-32.0); BLOOD UREA NITROGEN 8 MG/DL (7-18); GLOMERULAR FILTRATION RATE 82 ML/MIN (>89)
[2016-12-19 09:51] LABS: ALT (GPT) 39 U/L (10-53)
[2016-12-19 09:53] LABS: ALKALINE PHOSPHATASE 66 U/L (45-117); TOTAL BILIRUBIN ADULT 0.3 MG/DL (0.2-1.0)
[2016-12-19 10:14] LABS: ANION GAP 9 MEQ/L (5-15); CHLORIDE 105 MEQ/L (98-107); POTASSIUM 3.7 MEQ/L (3.5-5.1); SODIUM (NA) 138 MEQ/L (136-145)
[2016-12-19] MEDS ORDERED: ATEN100T PO (12:09)
--- NOTE | 2016-12-19 12:10 | HHI.DCPOC ---
Discharge Care Plan Diagnosis: (1) Symptomatic anemia (2) HTN (hypertension) Goals to Promote Your Health * To prevent worsening of your condition and complications * To maintain your health at the optimal level Directions to Meet Your Goals Take your medications as prescribed Follow your dietary instruction Follow activity as directed Keep your appointments as scheduled Take your immunizations and boosters as scheduled If your symptoms worsen call your PCP, if no PCP go to Urgent Care Center or Emergency Room Smoking is Dangerous to Your Health. Avoid second hand smoke Call the 24-hour hour crisis hotline for domestic abuse at Mariajose Barraza PA-C Dec 19, 2016 12:10 pm
[2016-12-19] MEDS ORDERED: FLUCONAZOLE 100 MG TAB PO ONE (13:00)
== END 2016-12-19 17:27 | disposition home or self-care (01) ==
LOC: NEPE 01:47 → INTOOBSV 04:14 → NEDA 04:14 → NEPGCP 06:08
PROVIDERS: ADMIT Family Medicine; ATTEND Family Medicine
DX: R07.9 Chest pain, unspecified (principal); D64.9 Anemia, unspecified; D25.9 Leiomyoma of uterus, unspecified; N92.0 Excessive and frequent menstruation with regular cycle; I10 Essential (primary) hypertension; I16.0 Hypertensive urgency; E86.0 Dehydration; E87.6 Hypokalemia; J45.909 Unspecified asthma, uncomplicated; F17.210 Nicotine dependence, cigarettes, uncomplicated; Z23 Encounter for immunization; Z91.19 Patient's noncompliance with other medical treatment and regimen
CPT/HCPCS: 36430; 71010; 80048; 80053; 80307; 81002; 82550; 82552; 84484; 85014; 85018; 85025; 86078; 86850; 86880; 86900; 86901; 86920; 90732; 93005; 96361; 96372; 96374; 96375; 96376; 99285; G0378; J1200; J2270; J7040; J7050; P9016

== ENCOUNTER 2016-12-23 02:32 | Emergency (ER) | payer OTHER ==
[~2016-12-23] VITALS: Ht 167.6 cm; Wt 80.0 kg
[~2016-12-23 02:32] MED LIST changes: +ATEN100T PO; -ATEN50TA PO; -HYDR-3533 PO
[2016-12-23 02:34] VITALS: BP 209/126; PULSE 87; RESP 17; TEMP 98.9; O2SAT 98
[2016-12-23 03:11] VITALS: BP 176/95; PULSE 78; RESP 18; O2SAT 99
[2016-12-23] MEDS ORDERED: cloNIDine HCL 0.1 MG TAB PO ONE (03:15)
[2016-12-23] MEDS ORDERED: oxyCODONE/ACETAMINOPHEN 5 MG/325 MG TAB PO ONE (03:15)
[2016-12-23] MEDS ORDERED: HYDR12.56 PO (03:16)
--- NOTE | 2016-12-23 03:18 | PD ---
HPI Chief Complaint: Headache Time Seen by Provider: 03:08 Travel History International Travel<30 days: No Contact w/Intl Traveler<30days: No Traveled to known affect area: No History of Present Illness HPI The patient was seen and examined in the presence of the nurse. This patient complains of headache and elevated blood pressures. He has long-standing chronic hypertension. She was recently discharged from the hospital on 100 mg atenolol daily which she reports compliance with. Has very accelerated hypertension. Complains of frontal throbbing headache. No thunderclap onset. No head injury or blood thinner or fever. Symptoms severity is moderate. No alleviating factors. Duration one day PFSH Past Medical History Hx Anticoagulant Therapy: No Anemia: Yes Blood Disorders: No Anxiety: No Depression: No Heart Rhythm Problems: No Cancer: No Cardiovascular Problems: Yes (htn) High Cholesterol: No Chemotherapy: No Chest Pain: Yes Congestive Heart Failure: No COPD: No Cerebrovascular Accident: No Diabetes: No Diminished Hearing: No Endocrine: No Gastrointestinal Disorders: No Genitourinary: No Headaches: Yes Hypertension: Yes Immune Disorder: No Musculoskeletal: No Neurologic: No Psychiatric: No Reproductive: No Respiratory: No Immunizations Current: Yes Migraines: Yes Pneumonia: Yes Radiation Therapy: No Sleep Apnea: No Tetanus Vaccination: < 5 Years Influenza Vaccination: No PNEUMOCCOCAL Vaccine (Year): 2 ?: Not : 4 Para: 4 Miscarriage: 0 : 0 Ectopic : No Ovarian Cysts: No Tubal Ligation: Yes (2007) Past Surgical History Abdominal Surgery: Yes ( 12/15/05, TUBAL LIGATION 12/15/05) AICD: No Cardiac Surgery: No Section: Yes (X2) Gynecologic Surgery: Yes (C SECTION) Hysterectomy: No Neurologic Surgery: No Social History Alcohol Use: Yes (OCCASSIONAL) Tobacco Use: Yes (1 PPD) Substance Use: No Allergies-Medications (Allergen,Severity, Reaction): Coded Allergies: *MDRO Multi-Drug Resistant Organism (Verified Adverse Reaction, Unknown, ) MRSA Wound Arm 10/2016 Reported Meds & Prescriptions Reported Meds & Active Scripts Active Hydrochlorothiazide 12.5 Mg Tab 12.5 Mg PO DAILY Atenolol 100 Mg Tab 100 Mg PO DAILY Reported Infed Inj (Iron Dextran) 100 Mg/2 Ml Inj 200 Mg IV WEEKLY Review of Systems General / Constitutional: No: Fever Eyes: No: Visual changes HENT: Positive: Headaches Cardiovascular: No: Chest Pain or Discomfort Respiratory: No: Shortness of Breath Gastrointestinal: No: Abdominal Pain Genitourinary: No: Dysuria Musculoskeletal: No: Pain Skin: No Rash Neurologic: Positive: Headache, No: Weakness Psychiatric: No: Depression Endocrine: No: Polydipsia Hematologic/Lymphatic: No: Easy Bruising Physical Exam Narrative GENERAL: Well-nourished, well-developed patient with headache SKIN: Focused skin assessment reveals no rash and nodules. Skin is Warm and dry. HEAD: Atraumatic. Normocephalic. EYES: Pupils equal and round. No scleral icterus. No injection or drainage. ENT: No nasal bleeding or discharge. Mucous membranes pink and moist. NECK: Trachea midline. No JVD. No meningeal signs CARDIOVASCULAR: Regular rate and rhythm. No murmur appreciated. RESPIRATORY: No accessory muscle use. Clear to auscultation. Breath sounds equal bilaterally. GASTROINTESTINAL: Abdomen soft, non-tender, nondistended. Hepatic and splenic margins not palpable. MUSCULOSKELETAL: No obvious deformities. No clubbing. No cyanosis. No edema. NEUROLOGICAL: Awake and alert. No obvious cranial nerve deficits. Motor grossly within normal limits. Normal speech. PSYCHIATRIC: Appropriate mood and affect; insight and judgment normal. Data Data Last Documented VS Vital Signs Date Time Temp Pulse Resp B/P (MAP) Pulse Ox O2 Delivery O2 Flow Rate FiO2 12/23/16 03:11 78 18 176/95 (122) 99 Room Air 12/23/16 02:[address] Brain W/O Iv Contrast(Rout) (12/23/16 ) Clonidine (Catapres) (12/23/16 03:15) Oxycodone-Acetamin 5-325 Mg (Percocet (12/23/16 03:15) MDM Medical Decision Making Medical Screen Exam Complete: Yes Emergency Medical Condition: Yes Medical Record Reviewed: Yes Differential Diagnosis Differential diagnosis includes migraine, tension headache, cluster headache, meningitis. Narrative Course I have reviewed the patient's electronic medical record. Patient has accelerated hypertension. I gave her dose of clonidine and will reassess I gave HER-2 pain pills She is neurologically intact Brain CT is normal Presentation not consistent with subarachnoid hemorrhage I added hydrochlorothiazide to take daily, I wrote 30 Advise them to track her pressure daily and follow up with primary care Diagnosis Primary Impression: Headache Qualified Codes: R51 - Headache Additional Impression: Accelerated hypertension Additional Instructions: Check and record blood pressure daily The patient was advised to follow up with their physician and return if they worsen. Med/Other Pt SpecificInfo: Prescription(s) given Scripts Hydrochlorothiazide (Hydrochlorothiazide) 12.5 Mg Tab 12.5 MG PO DAILY, #30 TAB 0 Refills Prov: Aniceto Sharma MD 12/23/16 Disposition: DISCHARGE HOME Condition: Stable Aniceto Sharma MD Dec 23, 2016 03:18
--- NOTE | 2016-12-23 03:37 | RADRPT ---
EXAM DATE/TIME: 12/23/2016 03:30 [facility] COMPARISON: No previous studies available for comparison. INDICATIONS : Cephalgia. RADIATION DOSE: 35.53 CTDIvol (mGy) MEDICAL HISTORY : Hypertension. SURGICAL HISTORY : Tubal ligation. ENCOUNTER: Initial ACUITY: 1 day PAIN SCALE: 6/10 LOCATION: cranial TECHNIQUE: Multiple contiguous axial images were obtained of the head. Using automated exposure control and adj ustment of the mA and/or kV according to patient size, radiation dose was kept as low as reasonably a chievable to obtain optimal diagnostic quality images. DICOM format image data is available electro nically for review and comparison. FINDINGS: CEREBRUM: The ventricles are normal for age. No evidence of midline shift, mass lesion, hemorrhage or acute in farction. No extra-axial fluid collections are seen. POSTERIOR FOSSA: The cerebellum and brainstem are intact. The 4th ventricle is midline. The cerebellopontine angle i s unremarkable. EXTRACRANIAL: The visualized portion of the orbits is intact. SKULL: The calvaria is intact. No evidence of skull fracture. CONCLUSION: 1. No acute intracranial abnormalities. Thierry Magaña MD on December 23, 2016 at 3:34 Board Certified Radiologist. This report was verified electronically.
== END 2016-12-23 04:01 | disposition home or self-care (01) ==
LOC: NEPC 02:32
DX: R51 Headache (principal); I10 Essential (primary) hypertension; D64.9 Anemia, unspecified; F17.200 Nicotine dependence, unspecified, uncomplicated; Z79.899 Other long term (current) drug therapy
CPT/HCPCS: 70450; 99284

== ENCOUNTER → 2017-02-17 | Outpatient (CLI) | payer OTHER ==
[~2017-02-17] MED LIST changes: +HYDR12.56 PO
[2017-02-17 12:22] LABS: HEMATOCRIT 26.9 % (35.0-46.0); MEAN CELL VOLUME 75.4 FL (80.0-100.0); MEAN CORPUSCULAR HEMOGLOBIN 22.6 PG (27.0-34.0); PLATELET COUNT 247 TH/MM3 (150-450); RED BLOOD COUNT 3.57 MIL/MM3 (4.00-5.30); RED CELL DISTRIBUTION WIDTH 21.8 % (11.6-17.2); REVIEW FLAG FINAL; WHITE BLOOD COUNT 5.5 TH/MM3 (4.0-11.0)
== END ==
LOC: CLAB 11:58
PROVIDERS: ATTEND Family Medicine
DX: D50.9 Iron deficiency anemia, unspecified (principal)
CPT/HCPCS: 36415; 85027

== ENCOUNTER 2017-02-25 15:11 | Emergency (ER) | payer OTHER ==
[~2017-02-25] VITALS: Ht 167.6 cm; Wt 77.5 kg
[2017-02-25 15:12] VITALS: BP 169/98; PULSE 98; RESP 16; TEMP 98.3; O2SAT 98
[2017-02-26] MEDS ORDERED: BACT800T5 PO (05:01)
[2017-02-26] MEDS ORDERED: FERR325T18 PO (05:01)
[2017-02-26] MEDS ORDERED: TYLE325T PO (05:01)
== END 2017-02-25 18:43 | disposition left against medical advice (07) ==
LOC: NED 15:11
DX: R10.9 Unspecified abdominal pain (principal); Z53.21 Procedure and treatment not carried out due to patient leaving prior to being seen by health care provider
CPT/HCPCS: 99281

== ENCOUNTER 2017-02-25 22:09 | Emergency (ER) | payer OTHER ==
[~2017-02-25] VITALS: Ht 167.6 cm; Wt 80.0 kg
[2017-02-25 22:12] VITALS: BP 163/101; PULSE 94; RESP 16; TEMP 98.7; O2SAT 100
--- NOTE | 2017-02-26 00:14 | PD ---
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 Said she has needed transfusion before so wanted to make sure. Also with lower abdominal cramping that she normally gets with her menstrual period. Denies any fever, chest pain, sob, n/v , dysuria, vaginal discharge. PFSH Past Medical History Hx Anticoagulant Therapy: No Anemia: Yes Blood Disorders: No Anxiety: No Depression: No Heart Rhythm Problems: No Cancer: No Cardiovascular Problems: Yes (HTN) High Cholesterol: No Chemotherapy: No Chest Pain: Yes Congestive Heart Failure: No COPD: No Cerebrovascular Accident: No Diabetes: No Diminished Hearing: No Endocrine: No Gastrointestinal Disorders: No Genitourinary: No Headaches: Yes Hypertension: Yes Immune Disorder: No Musculoskeletal: No Neurologic: No Psychiatric: No Reproductive: No Respiratory: No Immunizations Current: Yes Migraines: Yes Pneumonia: Yes Radiation Therapy: No Sleep Apnea: No PNEUMOCCOCAL Vaccine (Year): 2 ?: Not LMP: CURRENT : 4 Para: 4 Miscarriage: 0 : 0 Ectopic : No Ovarian Cysts: No Tubal Ligation: Yes (2007) Past Surgical History Abdominal Surgery: Yes ( 12/15/05, TUBAL LIGATION 12/15/05) AICD: No Cardiac Surgery: No Section: Yes (X2) Gynecologic Surgery: Yes (C SECTION) Hysterectomy: No Neurologic Surgery: No Social History Alcohol Use: Yes (OCCASSIONAL) Tobacco Use: Yes (1 PPD) Substance Use: No Allergies-Medications (Allergen,Severity, Reaction): Coded Allergies: *MDRO Multi-Drug Resistant Organism (Verified Adverse Reaction, Unknown, 02/25/17) MRSA Wound Arm 10/2016 Reported Meds & Prescriptions Reported Meds & Active Scripts Active Tylenol (Acetaminophen) 325 Mg Tab 650 Mg PO Q6H PRN Ferrous Sulfate 325 Mg (65 Mg Iron) Tablet 325 Mg PO DAILY Bactrim DS (Sulfamethoxazole-Trimethoprim) 800-160 Mg Tab 1 Tab PO BID Hydrochlorothiazide 12.5 Mg Tab 12.5 Mg PO DAILY Atenolol 100 Mg Tab 100 Mg PO DAILY Reported Infed Inj (Iron Dextran) 100 Mg/2 Ml Inj 200 Mg IV WEEKLY Review of Systems Except as stated in HPI: all other systems reviewed are Neg Physical Exam Narrative GENERAL: 36yo F in mild distress. SKIN: Focused skin assessment warm/dry. HEAD: Atraumatic. Normocephalic. EYES: Pupils equal and round. No scleral icterus. No injection or drainage. ENT: No nasal bleeding or discharge. Mucous membranes pink and moist. NECK: Trachea midline. No JVD. CARDIOVASCULAR: Regular rate and rhythm. No murmur appreciated. RESPIRATORY: No accessory muscle use. Clear to auscultation. Breath sounds equal bilaterally. GASTROINTESTINAL: Abdomen soft, mild lower abdominal ttp bilaterally. No rebound tenderness or guarding. PELVIC: Small amount of blood. No CMT or adnexal tenderness bilaterally. MUSCULOSKELETAL: No obvious deformities. No clubbing. No cyanosis. No edema. NEUROLOGICAL: Awake and alert. No obvious cranial nerve deficits. Motor grossly within normal limits. Normal speech. PSYCHIATRIC: Appropriate mood and affect; insight and judgment normal. Data Data Last Documented VS Vital Signs Date Time Temp Pulse Resp B/P (MAP) Pulse Ox O2 Delivery O2 Flow Rate FiO2 02/25/17 22:12 98.7 94 16 163/101 (121) 100 Room Air Orders Orders Complete Blood Count With Diff (02/26/17 00:04) Basic Metabolic Panel (Bmp) (02/26/17 00:11) Prothrombin Time / Inr (Pt) (02/26/17 00:11) Act Partial Throm Time (Ptt) (02/26/17 00:11) Urinalysis - C+S If Indicated (02/26/17 00:11) Ed Urine Pregnancytest Poc (02/26/17 00:11) Ketorolac Inj (Toradol Inj) (02/26/17 00:15) Urine Culture (02/26/17 00:15) Morphine Inj (Morphine Inj) (02/26/17 01:45) Ct Abd/Pel W Iv Contrast(Rout) (02/26/17 ) Iohexol 350 Inj (Omnipaque 350 Inj) (02/26/17 02:06) Ceftriaxone Inj (Rocephin Inj) (02/26/17 03:30) Labs Laboratory Tests Test 02/26/17 00:15 White Blood Count 5.5 TH/MM3 Red Blood Count 3.69 MIL/MM3 Hemoglobin 8.1 GM/DL Hematocrit 27.3 % Mean Corpuscular Volume 74.0 FL Mean Corpuscular Hemoglobin 21.8 PG Mean Corpuscular Hemoglobin Concent 29.5 % Red Cell Distribution Width 20.7 % Platelet Count 276 TH/MM3 Mean Platelet Volume 7.4 FL Neutrophils (%) (Auto) 63.8 % Lymphocytes (%) (Auto) 22.5 % Monocytes (%) (Auto) 12.3 % Eosinophils (%) (Auto) 0.5 % Basophils (%) (Auto) 0.9 % Neutrophils # (Auto) 3.5 TH/MM3 Lymphocytes # (Auto) 1.2 TH/MM3 Monocytes # (Auto) 0.7 TH/MM3 Eosinophils # (Auto) 0.0 TH/MM3 Basophils # (Auto) 0.0 TH/MM3 CBC Comment DIFF FINAL Differential Comment Prothrombin Time 10.8 SEC Prothromb Time International Ratio 1.0 RATIO Activated Partial Thromboplast Time 25.8 SEC Urine Color PINK Urine Turbidity HAZY Urine pH 6.0 Urine Specific [place] 1.012 Urine Protein TRACE mg/dL Urine Glucose (UA) NEG mg/dL Urine Ketones NEG mg/dL Urine Occult Blood LARGE Urine Nitrite NEG Urine Bilirubin NEG Urine Urobilinogen LESS THAN 2.0 MG/DL Urine Leukocyte Esterase SMALL Urine RBC /hpf Urine WBC 47 /hpf Urine Squamous Epithelial Cells <1 /hpf Urine Bacteria FEW /hpf Microscopic Urinalysis Comment CULTURE INDICATED Blood Urea Nitrogen 21 MG/DL Creatinine 0.86 MG/DL Random Glucose 76 MG/DL Calcium Level 8.2 MG/DL Sodium Level 138 MEQ/L Potassium Level 3.5 MEQ/L Chloride Level 106 MEQ/L Carbon Dioxide Level 23.3 MEQ/L Anion Gap 9 MEQ/L Estimat Glomerular Filtration Rate 91 ML/MIN [facility] Medical Decision Making Medical Screen Exam Complete: Yes Emergency Medical Condition: Yes Differential Diagnosis Vaginal bleeding secondary to uterine fibroid vs. colitis vs. appendicitis vs. UTI Narrative Course 36yo F with heavy vaginal bleeding secondary to uterine fibroid. Pt has been here multiple times because she has no insurance. negative. Labs reviewed, no leukocytosis. H/H low at 8.1/27.3. BMP unremarkable. UA showed small leukocyte. WBC 47, pt given ceftriaxone. Pt given toradol but still with pain so morphine ordered and CT a/p ordered. CT a/p showed no acute findings in the abdomen and pelvis. 5cm uterine fibroid. Pt is insisting on transfusing but I informed her that she does not need transfusion unless the hemoglobin is less than 7. She is worried that it will drop tonight and after multiple discussions, I discussed with OB hospitalist Dr. Magana. He came to evaluate the patient and does not think she needs to be admitted. Pt instructed to follow up with [facility] as outpatient. Repeat BP is 122/77. Return precautions given. Diagnosis Primary Impression: DUB (dysfunctional uterine bleeding) Additional Impression: UTI (urinary tract infection) Qualified Codes: N39.0 - Urinary tract infection, site not specified; R31.9 - Hematuria, unspecified Admitting Information Admitting Physician Requests: Observation Referrals: Lakesha Galindo MD call for appointment Patient Instructions: General Instructions Departure Forms: Tests/Procedures Additional Instructions: Please follow up with [facility] in 2-3 days. Return to the ED if symptoms worsen. Med/Other Pt SpecificInfo: Prescription(s) given Scripts Acetaminophen (Tylenol) 325 Mg Tab 650 MG PO Q6H Y for PAIN SCALE 1 TO 4, #20 TAB 0 Refills Prov: Raysa Grigsby DO 02/26/17 Ferrous Sulfate (Ferrous Sulfate) 325 Mg (65 Mg Iron) Tablet 325 MG PO DAILY for Nutritional Supplement, #15 TAB 0 Refills Prov: Raysa Grigsby DO 02/26/17 Sulfamethoxazole-Trimethoprim (Bactrim DS) 800-160 Mg Tab 1 TAB PO BID for Infection, #14 TAB 0 Refills Prov: Raysa Grigsby DO 02/26/17 Disposition: 01 DISCHARGE HOME Condition: Stable Raysa Grigsby DO Feb 26, 2017 00:14
[2017-02-26] MEDS ORDERED: KETOROLAC TROMETHAMINE 30 MG/ML (IVP) VIAL IV PUSH ONE (00:15)
[2017-02-26 00:32] LABS: AUTOMATED NEUTROPHIL # 3.5 TH/MM3 (1.8-7.7); BASOPHIL % 0.9 % (0.0-2.0); EOSINOPHIL % 0.5 % (0.0-4.0); HEMATOCRIT 27.3 % (35.0-46.0); HEMOGLOBIN 8.1 GM/DL (11.6-15.3); LYMPH % 22.5 % (9.0-44.0); LYMPHOCYTE # 1.2 TH/MM3 (1.0-4.8); MEAN CORPUSCULAR HEMOGLOBIN 21.8 PG (27.0-34.0); MEAN PLATELET VOLUME 7.4 FL (7.0-11.0); MONO % 12.3 % (0.0-8.0); MONOCYTE # 0.7 TH/MM3 (0-0.9); NEUT % 63.8 % (16.0-70.0); PLATELET COUNT 276 TH/MM3 (150-450); RED BLOOD COUNT 3.69 MIL/MM3 (4.00-5.30); RED CELL DISTRIBUTION WIDTH 20.7 % (11.6-17.2); WHITE BLOOD COUNT 5.5 TH/MM3 (4.0-11.0)
[2017-02-26 00:39] LABS: MEAN CORPUSCULAR HGB CONC 29.5 % (32.0-36.0)
[2017-02-26 00:45] LABS: BACTERIA, URINE FEW /hpf; BILIRUBIN, URINE NEG (NEG); BLOOD, URINE LARGE (NEG); GLUCOSE,URINE NEG (NEG); KETONE, URINE NEG (NEG); NITRITE,URINE NEG (NEG); SQUAMOUS EPITHELIAL CELL URINE <1 /hpf (0-5); URINE COLOR PINK (YELLW/STRAW); URINE LEUKOCYTE ESTERASE SMALL (NEG)
[2017-02-26 00:51] LABS: PROTHROMBIN TIME - PATIENT 10.8 SEC (9.8-11.6)
[2017-02-26 00:57] LABS: BICARBONATE 23.3 MEQ/L (21.0-32.0); CALCIUM 8.2 MG/DL (8.5-10.1); CREATININE 0.86 MG/DL (0.50-1.00)
[2017-02-26] MEDS ORDERED: MORPHINE SULFATE 4 MG/ML INJ IV PUSH ONE (01:45)
[2017-02-26] MEDS ORDERED: IOHEXOL 350 MG/ML 10 ML VIAL (for RAD DIAG) IVCONTRAST ONE (02:06)
--- NOTE | 2017-02-26 02:30 | RADRPT ---
EXAM DATE/TIME: 02/26/2017 02:02 [facility] COMPARISON: No previous studies available for comparison. INDICATIONS : Bilateral lower quadrant pain. IV CONTRAST: 98 cc Omnipaque 350 (iohexol) IV ORAL CONTRAST: No oral contrast ingested. RADIATION DOSE: 8.99 CTDIvol (mGy) MEDICAL HISTORY : Hypertension. Uterine fibriods. SURGICAL HISTORY : Tubal ligation. section. ENCOUNTER: Initial ACUITY: 3 days PAIN SCALE: 7/10 LOCATION: Bilateral lower quadrant TECHNIQUE: Volumetric scanning of the abdomen and pelvis was performed. Using automated exposure control and ad justment of the mA and/or kV according to patient size, radiation dose was kept as low as reasonably achievable to obtain optimal diagnostic quality images. DICOM format image data is available electro nically for review and comparison. FINDINGS: LOWER LUNGS: The visualized lower lungs are clear. LIVER: Homogeneous density without lesion. There is no dilation of the biliary tree. No calcified gallston es. SPLEEN: Normal size without lesion. PANCREAS: Within normal limits. KIDNEYS: Normal in size and shape. There is no mass, stone or hydronephrosis. ADRENAL GLANDS: Within normal limits. VASCULAR: There is no aortic aneurysm. BOWEL/MESENTERY: No evidence of bowel dilatation. No free air or free fluid. Appendix within normal limits. ABDOMINAL WALL: Within normal limits. RETROPERITONEUM: There is no lymphadenopathy. BLADDER: No wall thickening or mass. REPRODUCTIVE: 5 cm right-sided fundal uterine fibroid. INGUINAL: There is no lymphadenopathy or hernia. MUSCULOSKELETAL: Within normal limits for patient age. CONCLUSION: 1. No acute findings in the abdomen and pelvis. 2. 5 cm uterine fibroid. Edward Palacios MD on February 26, 2017 at 2:21 Board Certified Radiologist. This report was verified electronically.
[2017-02-26] MEDS ORDERED: cefTRIAXone INJ 1,000 MG in SODIUM CHLORIDE 0.9% INJ 100 ML IV ONE (03:30)
--- NOTE | 2017-02-26 04:15 | PD.CONS ---
HPI Chief Complaint Heavy vaginal bleeding 2 days Pelvic cramps 2 days Date Seen: Feb 26, 2017 Time Seen: 04:00 Travel History International Travel<30 Days: No Contact w/Intl Traveler<30Days: No Known Affected Area: No History of Present Illness HPI Pt is a 36 yo P4 who presents to ER with c/o heavy vaginal bleeding. Pt started LMP 02/24/2017. Pt reports a long history of heavy menstrual bleeding with intermittent flooding and large clots. Associated pelvic cramping. She a h/o uterine fibroid. 2 months ago, she received 2 unit PRBC for anemia with Hg of 6.4g/dl. She has also received weekly IV Fe infusions in the past. Pt states her menses are regular, but last for 7 days. First 3-4 days are heavy. Pt denies any palpitations, SOB or easy fatigue. Pt does not have an OBGYN. Pt is hypertensive, not well controlled. Weeks Gestation: 4 History Past Medical History Narrative Medical Anemia, has had blood transfusion and Iv fe infusions in the past: Uterine fibroids HYPERTENSION Pt states she had PAP about 2 years ago, wnl. Obstetric History Obstetric History x 2; Previous C Section x 2 Tubal ligation Past Surgical History Narrative Surgical previous C section x 2 2016 Tubal ligation 2016 Family History Family History: Negative Social History Alcohol Use: Yes Tobacco Use: Yes (PPD smoker) Substance Abuse: No Allergies-Medications (Allergen,Severity, Reaction): Coded Allergies: *MDRO Multi-Drug Resistant Organism (Verified Adverse Reaction, Unknown, 02/25/17) MRSA Wound Arm 10/2016 Home Meds Active Scripts Hydrochlorothiazide (Hydrochlorothiazide) 12.5 Mg Tab, 12.5 MG PO DAILY, #30 TAB 0 Refills Prov:Aniceto Sharma MD 12/23/16 Atenolol (Atenolol) 100 Mg Tab, 100 MG PO DAILY for Blood Pressure Management, # 30 TAB 1 Refill Prov:Mariajose Barraza PA-C 12/19/16 Reported Medications Iron Dextran Inj (Infed Inj) 100 Mg/2 Ml Inj, 200 MG IV WEEKLY 10/08/16 Review of Systems Except as stated in HPI: all other systems reviewed are Neg Physical Exam Vital Signs Date Time Temp Pulse Resp B/P (MAP) Pulse Ox O2 Delivery O2 Flow Rate FiO2 02/25/17 22:12 98.7 94 16 163/101 (121) 100 Room Air Narrative GENERAL: Well-nourished, well-developed patient. SKIN: Warm and dry. HEAD: Normocephalic and atraumatic. EYES: No scleral icterus. No injection or drainage. ENT: No nasal drainage noted. Mucous membranes pink. Airway patent. NECK: Supple, trachea midline. No JVD. CARDIOVASCULAR: Regular rate and rhythm without murmurs, gallops, or rubs. RESPIRATORY: Breath sounds equal bilaterally. No accessory muscle use. BREASTS: Bilateral exam showed no masses , no retractions, no nipple discharge. ABDOMEN/GI: Abdomen soft, non-tender, bowel sounds present, no rebound, no guarding SVE: uterus enlarged about 8-10 week size. Minimal blood noted at this time. EXTREMITIES: No cyanosis or edema. BACK: Nontender without obvious deformity. No CVA tenderness. NEUROLOGICAL: Awake and alert. Motor and sensory grossly within normal limits. Five out of 5 muscle strength in all muscle groups. Normal speech. Data Data Vital Signs Reviewed: Yes Orders Orders Complete Blood Count With Diff (02/26/17 00:04) Basic Metabolic Panel (Bmp) (02/26/17 00:11) Prothrombin Time / Inr (Pt) (02/26/17 00:11) Act Partial Throm Time (Ptt) (02/26/17 00:11) Urinalysis - C+S If Indicated (02/26/17 00:11) Ed Urine Pregnancytest Poc (02/26/17 00:11) Ketorolac Inj (Toradol Inj) (02/26/17 00:15) Urine Culture (02/26/17 00:15) Morphine Inj (Morphine Inj) (02/26/17 01:45) Ct Abd/Pel W Iv Contrast(Rout) (02/26/17 ) Iohexol 350 Inj (Omnipaque 350 Inj) (02/26/17 02:06) Ceftriaxone Inj (Rocephin Inj) (02/26/17 03:30) Admit Order (Ed Use Only) (02/26/17 03:21) Labs Laboratory Tests Test 02/26/17 00:15 White Blood Count 5.5 Red Blood Count 3.69 Hemoglobin 8.1 Hematocrit 27.3 Mean Corpuscular Volume 74.0 Mean Corpuscular Hemoglobin 21.8 Mean Corpuscular Hemoglobin Concent 29.5 Red Cell Distribution Width 20.7 Platelet Count 276 Mean Platelet Volume 7.4 Neutrophils (%) (Auto) 63.8 Lymphocytes (%) (Auto) 22.5 Monocytes (%) (Auto) 12.3 Eosinophils (%) (Auto) 0.5 Basophils (%) (Auto) 0.9 Neutrophils # (Auto) 3.5 Lymphocytes # (Auto) 1.2 Monocytes # (Auto) 0.7 Eosinophils # (Auto) 0.0 Basophils # (Auto) 0.0 CBC Comment DIFF FINAL Differential Comment Prothrombin Time 10.8 Prothromb Time International Ratio 1.0 Activated Partial Thromboplast Time 25.8 Urine Color PINK Urine Turbidity HAZY Urine pH 6.0 Urine Specific [place] 1.012 Urine Protein TRACE Urine Glucose (UA) NEG Urine Ketones NEG Urine Occult Blood LARGE Urine Nitrite NEG Urine Bilirubin NEG Urine Urobilinogen LESS THAN 2.0 Urine Leukocyte Esterase SMALL Urine RBC Urine WBC 47 Urine Squamous Epithelial Cells <1 Urine Bacteria FEW Microscopic Urinalysis Comment CULTURE INDICATED Blood Urea Nitrogen 21 Creatinine 0.86 Random Glucose 76 Calcium Level 8.2 Sodium Level 138 Potassium Level 3.5 Chloride Level 106 Carbon Dioxide Level 23.3 Anion Gap 9 Estimat Glomerular Filtration Rate 91 Date/Time Source Procedure Growth Status 02/26/17 00:15 Urine Clean Catch Urine Culture Pending Received MDM Plan Pt is a 36 yo P4, who presents to ER with c/o vaginal bleeeding. This is a long standing history of menorrhagia, likely secondary to uterine fibroids. Bleeding is minimal at time of my exam Pt is currently anemic with Hg 8.1g/dL, but is asymptomatic.- no SOB, palpitations, easy fatigue and normal pulse. She has poorly controlled HTn It is difficult to justify admission at this time for asymptomatic anemia and bleeding that is not heavy. She needs definitive treatment with hysterectomy. In interim she will need Fe supplement. Admitting diagnosis: Anemia secondary to vaginal bleeding. Billy Magana MD Feb 26, 2017 04:15
[2017-02-26 04:38] VITALS: BP 122/77; PULSE 74; RESP 17; O2SAT 99
[2017-02-26] MEDS ORDERED: FERR325T18 PO (05:01)
[2017-02-26] MEDS ORDERED: BACT800T5 PO (05:01)
[2017-02-26] MEDS ORDERED: TYLE325T PO (05:01)
== END 2017-02-26 05:02 | disposition home or self-care (01) ==
LOC: NEPE 22:09 → UNDOADMOB 02-26 03:22 → NEDA 02-26 03:22 → NEPE 02-26 05:02 → UNDODISOB 02-26 05:02
DX: D50.0 Iron deficiency anemia secondary to blood loss (chronic) (principal); D25.9 Leiomyoma of uterus, unspecified; N93.8 Other specified abnormal uterine and vaginal bleeding; N39.0 Urinary tract infection, site not specified; I10 Essential (primary) hypertension; F17.200 Nicotine dependence, unspecified, uncomplicated
CPT/HCPCS: 74177; 80048; 81001; 84703; 85025; 85610; 85730; 87086; 96365; 96375; 96376; 99284; J0696; J1885; J2270; Q9967

== ENCOUNTER 2017-05-08 19:33 | Inpatient (IN) | payer BC, OTHER ==
[~2017-05-08] VITALS: Ht 167.6 cm; Wt 81.2 kg
[~2017-05-08 19:33] MED LIST changes: +BACT800T5 PO; +FERR325T18 PO; +TYLE325T PO
[2017-05-08 19:34] VITALS: BP 187/114; PULSE 120; RESP 18; TEMP 98.1; O2SAT 100
[2017-05-08 20:01] VITALS: BP 190/111; PULSE 90; RESP 18; O2SAT 99
[2017-05-08] MEDS ORDERED: ATEN50TA PO (20:01)
[2017-05-08] MEDS ORDERED: SODIUM CHLOR 0.9% 1000 ML INJ 1,000 ML IV SCH (20:04)
--- NOTE | 2017-05-08 20:04 | PD ---
HPI Chief Complaint: Abnormal Results Time Seen by Provider: 20:01 Travel History International Travel<30 days: No Contact w/Intl Traveler<30days: No Traveled to known affect area: No History of Present Illness HPI 36-year-old Afro-Malian female presents the emergency department stating that she was sent here by her PCP for anemia. Patient states history of fibroid with heavy periods which causes her to have anemia. 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 Patient states she has had anemia requiring transfusion in the past approximately 3 months ago. She has no history of sickle cell. She does take atenolol 50 mg daily for her blood pressure. She did not take it today. Patient has had increased dyspnea with exertion but no chest pain or other symptoms. She states she has a mild headache currently but otherwise no acute issues. Patient reportedly states her hemoglobin was 5. Patient's last menstrual period was approximately one month ago. She states she is due any day. She has no known drug allergies. She has history of MRSA. PFSH Past Medical History Hx Anticoagulant Therapy: No Anemia: Yes Blood Disorders: No Anxiety: No Depression: No Heart Rhythm Problems: No Cancer: No Cardiovascular Problems: Yes (HTN) High Cholesterol: No Chemotherapy: No Chest Pain: Yes Congestive Heart Failure: No COPD: No Cerebrovascular Accident: No Diabetes: No Diminished Hearing: No Endocrine: No Gastrointestinal Disorders: No Genitourinary: No Headaches: Yes Hypertension: Yes Immune Disorder: No Musculoskeletal: No Neurologic: No Psychiatric: No Reproductive: No Respiratory: No Immunizations Current: Yes Migraines: Yes Pneumonia: Yes Radiation Therapy: No Sleep Apnea: No PNEUMOCCOCAL Vaccine (Year): 2 ?: Not LMP: 04/18/17 : 4 Para: 4 Miscarriage: 0 : 0 Ectopic : No Ovarian Cysts: No Tubal Ligation: Yes (2007) Past Surgical History Abdominal Surgery: Yes ( 12/15/05, TUBAL LIGATION 12/15/05) AICD: No Cardiac Surgery: No Section: Yes (X2) Gynecologic Surgery: Yes (C SECTION) Hysterectomy: No Neurologic Surgery: No Social History Alcohol Use: Yes (OCC) Tobacco Use: Yes (PPD smoker) Substance Use: No Allergies-Medications (Allergen,Severity, Reaction): Coded Allergies: *MDRO Multi-Drug Resistant Organism (Verified Adverse Reaction, Unknown, ) MRSA Wound Arm 10/2016 Reported Meds & Prescriptions Reported Meds & Active Scripts Active Tylenol (Acetaminophen) 325 Mg Tab 650 Mg PO Q6H PRN Hydrochlorothiazide 12.5 Mg Tab 12.5 Mg PO DAILY Reported Atenolol 50 Mg Tab 50 Mg PO DAILY Review of Systems Except as stated in HPI: all other systems reviewed are Neg General / Constitutional: No: Fever, Chills Eyes: No: Diploplia, Blurred Vision, Photophobia, Drainage, Visual changes HENT: Positive: Headaches (mild pressure), No: Vertigo, Lightheadedness, Sore Throat, Rhinitis, Rhinorrhea, Congestion, Neck Stiffness, Neck Pain, Gingival Bleeding, Dental Difficulties, Ear Discharge, Earache Cardiovascular: Positive: Tachycardia, No: Chest Pain or Discomfort, Palpitations, Irregular Rhythm, Diaphoresis Respiratory: No: Cough, Shortness of Breath, Wheezing, Sneezing Gastrointestinal: No: Nausea, Vomiting, Diarrhea, Abdominal Pain Genitourinary: No: Dysuria Musculoskeletal: No: Pain Skin: No Rash Neurologic: No: Weakness Psychiatric: No: Depression Endocrine: No: Polydipsia Hematologic/Lymphatic: No: Easy Bruising Physical Exam Narrative GENERAL: Patient appears in no acute distress. She is mildly anxious. SKIN: Warm and dry. Normal color. Normal turgor. HEAD: Atraumatic. Normocephalic. EYES: Pupils equal and round. No scleral icterus. No injection or drainage. ENT: No nasal bleeding or discharge. Mucous membranes pink and moist. NECK: Trachea midline. No JVD. CARDIOVASCULAR: Tachycardic rate and normal rhythm. RESPIRATORY: No accessory muscle use. Clear to auscultation. Breath sounds equal bilaterally. GASTROINTESTINAL: Abdomen soft, non-tender, nondistended. Hepatic and splenic margins not palpable. MUSCULOSKELETAL: Extremities without clubbing, cyanosis, or edema. No obvious deformities. NEUROLOGICAL: Awake and alert. No obvious cranial nerve deficits. Motor grossly within normal limits. Five out of 5 muscle strength in the arms and legs. Normal speech. PSYCHIATRIC: Appropriate mood and affect; insight and judgment normal. Data Data Last Documented VS Vital Signs Date Time Temp Pulse Resp B/P (MAP) Pulse Ox O2 Delivery O2 Flow Rate FiO2 05/08/17 20:13 99 Room Air 1/14/18 20:02 18 18 05/08/17 19:34 98.1 Orders Orders Complete Blood Count With Diff (05/08/17 20:04) Comprehensive Metabolic Panel (05/08/17 20:04) Prothrombin Time / Inr (Pt) (05/08/17 20:04) Act Partial Throm Time (Ptt) (05/08/17 20:04) Urinalysis - C+S If Indicated (05/08/17 20:04) Iv Access Insert/Monitor (05/08/17 20:04) Ecg Monitoring (05/08/17 20:04) Oximetry (05/08/17 20:04) Sodium Chlor 0.9% 1000 Ml Inj (Ns 1000 M (05/08/17 20:04) Sodium Chloride 0.9% Flush (Ns Flush) (05/08/17 20:15) Electrocardiogram (05/08/17 20:04) Ed Urine Pregnancytest Poc (05/08/17 20:04) Atenolol (Tenormin) (05/08/17 20:15) Type And Screen (05/08/17 20:04) Tramadol (Ultram) (05/08/17 20:15) Red Blood Cells (Rbc) (05/08/17 21:05) Blood Product Administration (05/08/17 21:05) Sodium Chlor 0.9% 250 Ml Inj (Ns 250 Ml (05/08/17 21:15) Diphenhydramine (Benadryl) (05/08/17 21:15) Diphenhydramine (Benadryl) (05/08/17 21:15) Acetaminophen (Tylenol) (05/08/17 21:15) Acetaminophen (Tylenol) (05/08/17 21:15) Admit Order (Ed Use Only) (05/08/17 21:22) Labs Laboratory Tests Test 05/08/17 20:08 05/08/17 20:30 White Blood Count 7.5 TH/MM3 Red Blood Count 3.51 MIL/MM3 Hemoglobin 5.9 GM/DL Hematocrit 21.6 % Mean Corpuscular Volume 61.4 FL Mean Corpuscular Hemoglobin 16.8 PG Mean Corpuscular Hemoglobin Concent 27.3 % Red Cell Distribution Width 22.8 % Platelet Count 149 TH/MM3 Mean Platelet Volume 8.3 FL Neutrophils (%) (Auto) 78.0 % Lymphocytes (%) (Auto) 11.2 % Monocytes (%) (Auto) 9.5 % Eosinophils (%) (Auto) 0.1 % Basophils (%) (Auto) 1.2 % Neutrophils # (Auto) 5.8 TH/MM3 Lymphocytes # (Auto) 0.8 TH/MM3 Monocytes # (Auto) 0.7 TH/MM3 Eosinophils # (Auto) 0.0 TH/MM3 Basophils # (Auto) 0.1 TH/MM3 CBC Comment DIFF FINAL Differential Comment Prothrombin Time 11.3 SEC Prothromb Time International Ratio 1.1 RATIO Activated Partial Thromboplast Time 24.1 SEC Blood Urea Nitrogen 9 MG/DL Creatinine 1.20 MG/DL Random Glucose 113 MG/DL Albumin 4.3 GM/DL Calcium Level 8.5 MG/DL Aspartate Amino Transf (AST/SGOT) 11 U/L Alanine Aminotransferase (ALT/SGPT) 18 U/L Sodium Level 137 MEQ/L Potassium Level 3.3 MEQ/L Chloride Level 106 MEQ/L Carbon Dioxide Level 20.5 MEQ/L Anion Gap 11 MEQ/L Estimat Glomerular Filtration Rate 62 ML/MIN Urine Color LIGHT-YELLOW Urine Turbidity CLEAR Urine pH 6.5 Urine Specific [place] 1.003 Urine Protein NEG mg/dL Urine Glucose (UA) NEG mg/dL Urine Ketones NEG mg/dL Urine Occult Blood NEG Urine Nitrite NEG Urine Bilirubin NEG Urine Urobilinogen LESS THAN 2.0 MG/DL Urine Leukocyte Esterase NEG Urine RBC LESS THAN 1 /hpf Urine WBC 1 /hpf Urine Squamous Epithelial Cells 6 /hpf Urine Bacteria RARE /hpf Microscopic Urinalysis Comment CULT NOT INDICATED MDM Medical Decision Making Medical Screen Exam Complete: Yes Emergency Medical Condition: Yes Medical Record Reviewed: Yes Differential Diagnosis Symptomatic anemia. Tachycardia. Headache. Hypertension. Narrative Course Patient is medically stable at time of exam. Labs ordered including CBC, CMP, coagulation studies, urinalysis, and urine test. EKG and chest x-ray is ordered. IV access is obtained patient is given 1000 mL normal saline bolus. Patient is given her atenolol 50 mg by mouth dose. Patient is typed and screened. Patient is given 50 mg tramadol by mouth for her headache. EKG shows sinus rhythm at 94 bpm. Urine test is negative. Urinalysis is normal. Laboratory CBC without leukocytosis with microcytic anemia with a hemoglobin of 5.9. White blood count is 149. 2 units of red blood cells are ordered. Call was placed to the hospitalist for admission. Diagnosis Primary Impression: Anemia Qualified Codes: D50.0 - Iron deficiency anemia secondary to blood loss ( chronic) Admitting Information Admitting Physician Requests: Admit Condition: Stable Kimani Anne May 08, 2017 20:04
[2017-05-08 20:13] VITALS: O2SAT 99
[2017-05-08] MEDS ORDERED: SODIUM CHLORIDE 0.9% FLUSH 10 ML FLUSH IV FLUSH PRN ×2 (20:15→21:30)
[2017-05-08] MEDS ORDERED: traMADol HCL 50 MG TAB PO ONE (20:15)
[2017-05-08] MEDS ORDERED: ATENOLOL 50 MG TAB PO ONE (20:15)
--- NOTE | 2017-05-08 20:53 | PD ---
Data Data Last Documented VS Vital Signs Date Time Temp Pulse Resp B/P (MAP) Pulse Ox O2 Delivery O2 Flow Rate FiO2 05/08/17 20:13 99 Room Air 05/08/17 20:02 18 18 05/08/17 19:34 98.1 Orders Orders Complete Blood Count With Diff (05/08/17 20:04) Comprehensive Metabolic Panel (05/08/17 20:04) Prothrombin Time / Inr (Pt) (05/08/17 20:04) Act Partial Throm Time (Ptt) (05/08/17 20:04) Urinalysis - C+S If Indicated (05/08/17 20:04) Iv Access Insert/Monitor (05/08/17 20:04) Ecg Monitoring (05/08/17 20:04) Oximetry (05/08/17 20:04) Sodium Chlor 0.9% 1000 Ml Inj (Ns 1000 M (05/08/17 20:04) Sodium Chloride 0.9% Flush (Ns Flush) (05/08/17 20:15) Electrocardiogram (05/08/17 20:04) Ed Urine Pregnancytest Poc (05/08/17 20:04) Atenolol (Tenormin) (05/08/17 20:15) Type And Screen (05/08/17 20:04) Tramadol (Ultram) (05/08/17 20:15) Red Blood Cells (Rbc) (05/08/17 21:05) Blood Product Administration (05/08/17 21:05) Sodium Chlor 0.9% 250 Ml Inj (Ns 250 Ml (05/08/17 21:15) Diphenhydramine (Benadryl) (05/08/17 21:15) Diphenhydramine (Benadryl) (05/08/17 21:15) Acetaminophen (Tylenol) (05/08/17 21:15) Acetaminophen (Tylenol) (05/08/17 21:15) Admit Order (Ed Use Only) (05/08/17 21:22) Admit To Inpatient (05/08/17 ) Vital Signs (Adult) Q4H (05/08/17 21:19) Activity Oob Ad Isa (05/08/17 21:19) Diet Regular Basic (05/09/17 Breakfast) Sodium Chloride 0.9% Flush (Ns Flush) (05/08/17 21:30) Sodium Chloride 0.9% Flush (Ns Flush) (05/09/17 09:00) Ondansetron Inj (Zofran Inj) (05/08/17 21:30) Comprehensive Metabolic Panel (05/09/17 06:00) Complete Blood Count With Diff (05/09/17 06:00) Scd Bilateral/Knee High DENILSON.BID (05/08/17 21:19) Mir Bilateral/Knee High DENILSON.QSHIFT (05/08/17 21:23) Acetaminophen (Tylenol) (05/08/17 21:30) Acetamin-Hydrocod 325-5 Mg (Farber 5-325 (05/08/17 21:30) Acetamin-Hydrocod 325-10 Mg ([place] 10-32 (05/08/17 21:30) Docusate Sodium-Senna (Kamilah-Colace) (05/09/17 09:00) Magnesium Hydroxide Liq (Milk Of Magnesi (05/08/17 21:30) Sennosides (Senokot) (05/08/17 21:30) Bisacodyl Supp (Dulcolax Supp) (05/08/17 21:30) Lactulose Liq (Lactulose Liq) (05/08/17 21:30) Inpatient Certification (05/08/17 ) Atenolol (Tenormin) (05/09/17 09:00) Hydrochlorothiazide (Microzide) (05/09/17 09:00) AGID (05/08/17 20:08) Labs Laboratory Tests Test 05/08/17 20:08 05/08/17 20:30 White Blood Count 7.5 TH/MM3 Red Blood Count 3.51 MIL/MM3 Hemoglobin 5.9 GM/DL Hematocrit 21.6 % Mean Corpuscular Volume 61.4 FL Mean Corpuscular Hemoglobin 16.8 PG Mean Corpuscular Hemoglobin Concent 27.3 % Red Cell Distribution Width 22.8 % Platelet Count 149 TH/MM3 Mean Platelet Volume 8.3 FL Neutrophils (%) (Auto) 78.0 % Lymphocytes (%) (Auto) 11.2 % Monocytes (%) (Auto) 9.5 % Eosinophils (%) (Auto) 0.1 % Basophils (%) (Auto) 1.2 % Neutrophils # (Auto) 5.8 TH/MM3 Lymphocytes # (Auto) 0.8 TH/MM3 Monocytes # (Auto) 0.7 TH/MM3 Eosinophils # (Auto) 0.0 TH/MM3 Basophils # (Auto) 0.1 TH/MM3 CBC Comment DIFF FINAL Differential Comment Prothrombin Time 11.3 SEC Prothromb Time International Ratio 1.1 RATIO Activated Partial Thromboplast Time 24.1 SEC Blood Urea Nitrogen 9 MG/DL Creatinine 1.20 MG/DL Random Glucose 113 MG/DL Total Protein 7.6 GM/DL Albumin 4.3 GM/DL Calcium Level 8.5 MG/DL Alkaline Phosphatase 53 U/L Aspartate Amino Transf (AST/SGOT) 11 U/L Alanine Aminotransferase (ALT/SGPT) 18 U/L Total Bilirubin 0.3 MG/DL Sodium Level 137 MEQ/L Potassium Level 3.3 MEQ/L Chloride Level 106 MEQ/L Carbon Dioxide Level 20.5 MEQ/L Anion Gap 11 MEQ/L Estimat Glomerular Filtration Rate 62 ML/MIN Urine Color LIGHT-YELLOW Urine Turbidity CLEAR Urine pH 6.5 Urine Specific [place] 1.003 Urine Protein NEG mg/dL Urine Glucose (UA) NEG mg/dL Urine Ketones NEG mg/dL Urine Occult Blood NEG Urine Nitrite NEG Urine Bilirubin NEG Urine Urobilinogen LESS THAN 2.0 MG/DL Urine Leukocyte Esterase NEG Urine RBC LESS THAN 1 /hpf Urine WBC 1 /hpf Urine Squamous Epithelial Cells 6 /hpf Urine Bacteria RARE /hpf Microscopic Urinalysis Comment CULT NOT INDICATED MDM Medical Record Reviewed: Yes Supervised Visit with JOSE: Yes Narrative Course I, Dr. Whitman, have reviewed the advance practice practitioner's documentation and am in agreement, met with the patient face to face, made the diagnosis, and the medical decision making was done by me. The patient was initially evaluated by Kimani, the physician benefits assistant. Please see their complete history and physical. *My assessment and Findings: The patient presents with a history of dysfunctional uterine bleeding reporting that her primary care physician has sent her in for anemia. During the course of the patients emergency department visit, the patients history, examination, and differential diagnosis were reviewed with the patient. The patient was placed on a cardiac technologist with oximetry and frequent blood pressure monitoring. The patient had IV access obtained and blood work sent for analysis. The patient was typed and screened. The patient was initially provided normal saline 1 L IV fluid bolus. The patient was noted to be hypertensive and was given atenolol for hypertension. She was given tramadol for headache. The patients laboratory studies were reviewed and remarkable for a white count of 7.5, hemoglobin 5.9, the patient was typed and crossmatched for 2 units of packed red blood cells to be administered, platelets 149, neutrophils 78, monocytes 9.5, CMP is remarkable for potassium of 3.3, CO2 20.5, creatinine 1.20 , glucose 113, AST 11, PT 11.3, PTT 24.1, urinalysis unremarkable. The patients results were discussed with the patient, including the plan of care. I explained that further testing and/ or monitoring is indicated based on the patients history, examination, and/ or laboratory findings. Therefore, I recommended admission for additional evaluation. The patient expressed understanding and was agreeable with this plan. The patient was admitted to the hospital in stable condition and sent to a bed under the care of the [facility]. Diagnosis Primary Impression: Symptomatic anemia Additional Impression: Dysfunctional uterine bleeding Admitting Information Admitting Physician Requests: Admit Condition: Stable Jazmyn Whitman MD May 08, 2017 20:52
[2017-05-08 20:56] LABS: BACTERIA, URINE RARE /hpf; BILIRUBIN, URINE NEG (NEG); BLOOD, URINE NEG (NEG); GLUCOSE,URINE NEG (NEG); KETONE, URINE NEG (NEG); NITRITE,URINE NEG (NEG); PH, URINE 6.5 (5.0-8.5); SQUAMOUS EPITHELIAL CELL URINE 6 /hpf (0-5); URINE COLOR LIGHT-YELLOW (YELLW/STRAW); URINE LEUKOCYTE ESTERASE NEG (NEG)
[2017-05-08 20:58] LABS: AUTOMATED NEUTROPHIL # 5.8 TH/MM3 (1.8-7.7); BASOPHIL # 0.1 TH/MM3 (0-0.2); BASOPHIL % 1.2 % (0.0-2.0); EOSINOPHIL % 0.1 % (0.0-4.0); HEMATOCRIT 21.6 % (35.0-46.0); LYMPH % 11.2 % (9.0-44.0); LYMPHOCYTE # 0.8 TH/MM3 (1.0-4.8); MEAN CELL VOLUME 61.4 FL (80.0-100.0); MEAN CORPUSCULAR HEMOGLOBIN 16.8 PG (27.0-34.0); MEAN PLATELET VOLUME 8.3 FL (7.0-11.0); MONO % 9.5 % (0.0-8.0); MONOCYTE # 0.7 TH/MM3 (0-0.9); PLATELET COUNT 149 TH/MM3 (150-450); RED BLOOD COUNT 3.51 MIL/MM3 (4.00-5.30); RED CELL DISTRIBUTION WIDTH 22.8 % (11.6-17.2); WHITE BLOOD COUNT 7.5 TH/MM3 (4.0-11.0)
[2017-05-08 21:00] LABS: MEAN CORPUSCULAR HGB CONC 27.3 % (32.0-36.0)
[2017-05-08 21:05] LABS: HEMOGLOBIN 5.9 GM/DL (11.6-15.3)
[2017-05-08 21:08] LABS: INTERNATIONAL NORMALIZED RATIO 1.1 RATIO; PROTHROMBIN TIME - PATIENT 11.3 SEC (9.8-11.6)
[2017-05-08] MEDS ORDERED: ACETAMINOPHEN 325 MG TAB PO ONE (21:15)
[2017-05-08] MEDS ORDERED: SODIUM CHLOR 0.9% 250 ML INJ 250 ML IV ONE (21:15)
[2017-05-08] MEDS ORDERED: diphenhydrAMINE HCL 25 MG CAP PO PRN (21:15)
[2017-05-08] MEDS ORDERED: diphenhydrAMINE HCL 25 MG CAP PO ONE (21:15)
[2017-05-08] MEDS ORDERED: ACETAMINOPHEN 325 MG TAB PO PRN ×2 (21:15→21:30)
[2017-05-08 21:21] LABS: ALBUMIN 4.3 GM/DL (3.4-5.0); AST (GOT) 11 U/L (15-37); BICARBONATE 20.5 MEQ/L (21.0-32.0); BLOOD UREA NITROGEN 9 MG/DL (7-18); CALCIUM 8.5 MG/DL (8.5-10.1); CHLORIDE 106 MEQ/L (98-107); GLOMERULAR FILTRATION RATE 62 ML/MIN (>89); GLUCOSE,RANDOM 113 MG/DL (74-106); SODIUM (NA) 137 MEQ/L (136-145)
[2017-05-08 21:22] LABS: ALT (GPT) 18 U/L (10-53)
[2017-05-08 21:24] LABS: ALKALINE PHOSPHATASE 53 U/L (45-117); TOTAL BILIRUBIN ADULT 0.3 MG/DL (0.2-1.0); TOTAL PROTEIN 7.6 GM/DL (6.4-8.2)
--- NOTE | 2017-05-08 21:24 | HHI.HP ---
HPI Service [facility] Primary Care Physician Josr Lucero DO Admission Diagnosis Symptomatic Anemia Diagnoses: (1) Anemia Diagnosis: Principal (2) HTN (hypertension) Diagnosis: Principal (3) CATA (acute kidney injury) Diagnosis: Principal (4) Tobacco abuse Diagnosis: Principal Travel History International Travel<30 Days: No Contact w/Intl Traveler <30 Da: No Traveled to Known Affected Are: No History of Present Illness This is a 36-year-old female with a PMH of HTN, Dysfunctional Uterine Bleeding and Iron Deficiency Anemia who was referred to the ER by her PCP secondary to abnormal hemoglobin. Per pt she's had SOB, worse w/ exertion, moderate severity , associated w/ dizziness for approx 3 days. Denies fever, chills, chest pain or cough. Seen by PCP and had lab work done showing Hgb 5. Reports chronic heavy menstrual bleeding requiring transfusions in the past. On arrival, BP 187 /114, HR 120, O2 sat 100% on RA, Afebrile. Hemoglobin 5.9. Platelets 149, previous C2 76 on 02/26/17. Creatinine 1.20, previously 0.86 on 02/26/17. INR 1.1. UA negative. 2u pRBC ordered in ER, currently pending. Review of Systems Except as stated in HPI: all other systems reviewed are Neg ROS: 14 point review of systems otherwise negative. Past Family Social History Past Medical History PMH: HTN, Dysfunctional Uterine Bleeding and Iron Deficiency Anemia Past Surgical History PAST SURGICAL HISTORY: , Tubal Ligation Allergies: Coded Allergies: *MDRO Multi-Drug Resistant Organism (Verified Adverse Reaction, Unknown, ) MRSA Wound Arm 10/2016 Family History PAST FAMILY HISTORY: Reviewed. No h/o DM or CAD Social History PAST SOCIAL HISTORY: Occasional alcohol. Positive for tobacco. Negative for drugs. Physical Exam Vital Signs Vital Signs Date Time Temp Pulse Resp B/P (MAP) Pulse Ox O2 Delivery O2 Flow Rate FiO2 05/08/17 20:13 99 Room Air 05/08/17 20:02 18 18 98 Room Air 05/08/17 20:01 90 18 190/111 (137) 99 Room Air 05/08/17 19:34 98.1 120 18 187/114 (138) 100 Room Air Physical Exam PE: GENERAL: Pleasant young female in no acute distress. HEENT: PERRLA, EOMI. No scleral icterus or conjunctival pallor. No lid lag or facial droop. CARDIOVASCULAR: Regular rate and rhythm. No obvious murmurs to auscultation. No chest tenderness to palpation. RESPIRATORY: No obvious rhonchi or wheezing. Clear to auscultation. Breath sounds equal bilaterally. GASTROINTESTINAL: Abdomen soft, non-tender, nondistended. BS normal. MUSCULOSKELETAL: Extremities without clubbing, cyanosis, or edema. No obvious deformities. NEUROLOGICAL: Awake, alert and oriented x4. No focal neurologic deficits. Moving both upper and lower extremities spontaneously. Laboratory Laboratory Tests Test 05/08/17 20:08 05/08/17 20:30 White Blood Count 7.5 Red Blood Count 3.51 Hemoglobin 5.9 Hematocrit 21.6 Mean Corpuscular Volume 61.4 Mean Corpuscular Hemoglobin 16.8 Mean Corpuscular Hemoglobin Concent 27.3 Red Cell Distribution Width 22.8 Platelet Count 149 Mean Platelet Volume 8.3 Neutrophils (%) (Auto) 78.0 Lymphocytes (%) (Auto) 11.2 Monocytes (%) (Auto) 9.5 Eosinophils (%) (Auto) 0.1 Basophils (%) (Auto) 1.2 Neutrophils # (Auto) 5.8 Lymphocytes # (Auto) 0.8 Monocytes # (Auto) 0.7 Eosinophils # (Auto) 0.0 Basophils # (Auto) 0.1 CBC Comment DIFF FINAL Differential Comment Prothrombin Time 11.3 Prothromb Time International Ratio 1.1 Activated Partial Thromboplast Time 24.1 Blood Urea Nitrogen 9 Creatinine 1.20 Random Glucose 113 Albumin 4.3 Calcium Level 8.5 Aspartate Amino Transf (AST/SGOT) 11 Alanine Aminotransferase (ALT/SGPT) 18 Sodium Level 137 Potassium Level 3.3 Chloride Level 106 Carbon Dioxide Level 20.5 Anion Gap 11 Estimat Glomerular Filtration Rate 62 Urine Color LIGHT-YELLOW Urine Turbidity CLEAR Urine pH 6.5 Urine Specific [place] 1.003 Urine Protein NEG Urine Glucose (UA) NEG Urine Ketones NEG Urine Occult Blood NEG Urine Nitrite NEG Urine Bilirubin NEG Urine Urobilinogen LESS THAN 2.0 Urine Leukocyte Esterase NEG Urine RBC LESS THAN 1 Urine WBC 1 Urine Squamous Epithelial Cells 6 Urine Bacteria RARE Microscopic Urinalysis Comment CULT NOT INDICATED Result Diagram: 05/08/172007 Caprini VTE Risk Assessment Caprini VTE Risk Assessment: No/Low Risk (score <= 1) VTE Pharm Contraindication: Active bleeding Caprini Risk Assessment Model Point Value = 1 Point Value = 2 Point Value = 3 Point Value = 5 Age 41-60 Minor surgery BMI > 25 kg/m2 Swollen legs Varicose veins or History of unexplained or recurrent spontaneous Oral contraceptives or hormone replacement Sepsis (< 1 month) Serious lung disease, including pneumonia (< 1 month) Abnormal pulmonary function Acute myocardial infarction Congestive heart failure (< 1 month) History of inflammatory bowel disease Medical patient at bed rest Age 61-74 Arthroscopic surgery Major open surgery (> 45 min) Laparoscopic surgery (> 45 min) Malignancy Confined to bed (> 72 hours) Immobilizing plaster cast Central venous access Age >= 75 History of VTE Family history of VTE Factor V Leiden Prothrombin [id number] Lupus anticoagulant Anticardiolipin antibodies Elevated serum homocysteine Heparin-induced thrombocytopenia Other congenital or acquired thrombophilia Stroke (< 1 month) Elective arthroplasty Hip, pelvis, or leg fracture Acute spinal cord injury (< 1 month) Prophylaxis Regimen Total Risk Factor Score Risk Level Prophylaxis Regimen 0-1 Low Early ambulation 2 Moderate Order ONE of the following: *Sequential Compression Device (SCD) *Heparin 5000 units SQ BID 3-4 Higher Order ONE of the following medications: *Heparin 5000 units SQ TID *Enoxaparin/Lovenox 40 mg SQ daily (WT < 150 kg, CrCl > 30 mL/min) *Enoxaparin/Lovenox 30 mg SQ daily (WT < 150 kg, CrCl > 10-29 mL/min) *Enoxaparin/Lovenox 30 mg SQ BID (WT < 150 kg, CrCl > 30 mL/min) AND/OR *Sequential Compression Device (SCD) 5 or more Highest Order ONE of the following medications: *Heparin 5000 units SQ TID (Preferred with Epidurals) *Enoxaparin/Lovenox 40 mg SQ daily (WT < 150 kg, CrCl > 30 mL/min) *Enoxaparin/Lovenox 30 mg SQ daily (WT < 150 kg, CrCl > 10-29 mL/min) *Enoxaparin/Lovenox 30 mg SQ BID (WT < 150 kg, CrCl > 30 mL/min) AND *Sequential Compression Device (SCD) Assessment and Plan Problem List: (1) Anemia ICD Code: D64.9 - Anemia, unspecified (2) HTN (hypertension) ICD Code: I10 - Essential (primary) hypertension (3) CATA (acute kidney injury) ICD Code: N17.9 - Acute kidney failure, unspecified (4) Tobacco abuse ICD Code: Z72.0 - Tobacco use Assessment and Plan A/P: 1. Anemia: Critical. Symptomatic. c/o worsening SOB w/ exertion x3 days, h/ o DUB w/ heavy menstrual bleeding requiring transfusion. Hgb 5.9 at this time. 2u pRBC ordered, pending transfusion. Monitor Hgb/Hct. Will need outpatient follow-up w/ Commercial Construction Superintendent for eval of DUB. 2. HTN: Uncontrolled. Pt non-compliant w/ meds. BP 190's on arrival, resume home Atenolol, monitor BP. 3. Tobacco Abuse: Pt counselled. NicoDerm prn if needed. 4. DVT Prophylaxis: Pharmacologic contraindication secondary to critical anemia 5. Social work for d/c planning as needed. 6. Case discussed w/ ER physician at length, labs/records reviewed by me. Physician Certification 2 Midnight Certification Type: Admission for Inpatient Services Order for Inpatient Services The services are ordered in accordance with Medicare regulations or non- Medicare payer requirements, as applicable. In the case of services not specified as inpatient-only, they are appropriately provided as inpatient services in accordance with the 2-midnight benchmark. Estimated LOS (days): 2 days is the estimated time the patient will need to remain in the hospital, assuming treatment plan goals are met and no additional complications. Post-Hospital Plan: Not yet determined Problem Qualifiers (1) Anemia: Qualified Codes: D50.0 - Iron deficiency anemia secondary to blood loss ( chronic) Maggie Pina MD May 08, 2017 21:24
[2017-05-08] MEDS ORDERED: BISACODYL 10 MG SUPP RECTAL PRN (21:30)
[2017-05-08] MEDS ORDERED: ACETAMINOPHEN/HYDROcodone 325 MG/10 MG TAB PO PRN (21:30)
[2017-05-08] MEDS ORDERED: MAGNESIUM HYDROXIDE SUSP 30 ML CUP PO PRN (21:30)
[2017-05-08] MEDS ORDERED: SENNOSIDES 8.6 MG TAB PO PRN (21:30)
[2017-05-08] MEDS ORDERED: LACTULOSE SYRUP 20 GM/30 ML CUP PO PRN (21:30)
[2017-05-08] MEDS ORDERED: ONDANSETRON HCL 4 MG/2 ML VIAL IVP PRN (21:30)
[2017-05-08] MEDS: ACETAMINOPHEN/HYDROcodone 325 MG/5 MG TAB PO PRN (22:02)
[2017-05-08 22:26] VITALS: BP 155/96; PULSE 78; RESP 18; TEMP 98.4; O2SAT 100
[2017-05-09] VITALS (12 sets, daily range): BP systolic 117–182; BP diastolic 70–110; PULSE 65–81; RESP 16–18; TEMP 96.7–99.1; O2SAT 98–100
[2017-05-09] MEDS ORDERED: diphenhydrAMINE HCL 50 MG/ML VIAL IV PUSH ONE ×2 (01:45→21:15)
[2017-05-09] MEDS: ACETAMINOPHEN/HYDROcodone 325 MG/5 MG TAB PO PRN (05:09)
--- NOTE | 2017-05-09 07:46 | HHI.DCPOC ---
Discharge Care Plan Diagnosis: (1) DUB (dysfunctional uterine bleeding) (2) Anemia Goals to Promote Your Health * To prevent worsening of your condition and complications * To maintain your health at the optimal level Directions to Meet Your Goals Take your medications as prescribed Follow your dietary instruction Follow activity as directed Keep your appointments as scheduled Take your immunizations and boosters as scheduled If your symptoms worsen call your PCP, if no PCP go to Urgent Care Center or Emergency Room Smoking is Dangerous to Your Health. Avoid second hand smoke Call the 24-hour hour crisis hotline for domestic abuse at Mariajose Barraza PA-C May 09, 2017 7:46 am
[2017-05-09 08:35] LABS: AUTOMATED NEUTROPHIL # 2.5 TH/MM3 (1.8-7.7); BASOPHIL % 0.7 % (0.0-2.0); EOSINOPHIL % 0.5 % (0.0-4.0); LYMPH % 25.9 % (9.0-44.0); LYMPHOCYTE # 1.1 TH/MM3 (1.0-4.8); MEAN CELL VOLUME 66.3 FL (80.0-100.0); MEAN CORPUSCULAR HEMOGLOBIN 19.9 PG (27.0-34.0); MEAN CORPUSCULAR HGB CONC 30.1 % (32.0-36.0); MEAN PLATELET VOLUME 8.5 FL (7.0-11.0); MONO % 12.9 % (0.0-8.0); MONOCYTE # 0.5 TH/MM3 (0-0.9); PLATELET COUNT 112 TH/MM3 (150-450); RED BLOOD COUNT 3.35 MIL/MM3 (4.00-5.30); RED CELL DISTRIBUTION WIDTH 26.7 % (11.6-17.2); WHITE BLOOD COUNT 4.1 TH/MM3 (4.0-11.0)
[2017-05-09 08:45] LABS: HEMATOCRIT 22.2 % (35.0-46.0); HEMOGLOBIN 6.7 GM/DL (11.6-15.3)
[2017-05-09 09:00] LABS: ALBUMIN 3.5 GM/DL (3.4-5.0); ALKALINE PHOSPHATASE 46 U/L (45-117); ALT (GPT) 26 U/L (10-53); AST (GOT) 23 U/L (15-37); BICARBONATE 22.4 MEQ/L (21.0-32.0); BLOOD UREA NITROGEN 14 MG/DL (7-18); CALCIUM 7.8 MG/DL (8.5-10.1); CHLORIDE 110 MEQ/L (98-107); CREATININE 0.95 MG/DL (0.50-1.00); GLOMERULAR FILTRATION RATE 81 ML/MIN (>89); GLUCOSE,RANDOM 93 MG/DL (74-106); SODIUM (NA) 140 MEQ/L (136-145); TOTAL BILIRUBIN ADULT 0.7 MG/DL (0.2-1.0); TOTAL PROTEIN 6.2 GM/DL (6.4-8.2)
[2017-05-09] MEDS ORDERED: FUROSEMIDE 20 MG/2 ML VIAL IV PUSH ONE (09:15)
[2017-05-09] MEDS ORDERED: SODIUM CHLOR 0.9% 250 ML INJ 250 ML IV ONE (09:15)
[2017-05-09 10:02] LABS: ACANTHOCYTES OCC (NORMAL); OVALOCYTES 1+ (NORMAL)
--- NOTE | 2017-05-09 12:04 | HHI.PR ---
Subjective Remarks David tin bed says she feels tired. She also complaints of headache and says tylenol doesn;t help. She received 2 U prbc and HGB still low plan to transfuse additional 2 uU or prbcs and also start iron infusion. Patient denies abd pain. no n/v/d/c. Denies chest pain or sob. no vaginal bleeding. Says she has an appointment with service center coordinator this week Objective Vitals Vital Signs Date Time Temp Pulse Resp B/P (MAP) Pulse Ox O2 Delivery O2 Flow Rate FiO2 05/09/17 08:52 98.8 75 16 117/75 (89) 100 05/09/17 04:41 97.3 78 16 118/70 100 05/09/17 04:21 96.9 75 16 118/70 100 05/09/17 01:23 96.7 76 16 131/80 100 05/09/17 00:58 96.9 81 18 161/81 100 05/08/17 22:26 98.4 78 18 155/96 (115) 100 05/08/17 20:13 99 Room Air 05/08/17 20:02 18 18 98 Room Air 05/08/17 20:01 90 18 190/111 (137) 99 Room Air 05/08/17 19:34 98.1 120 18 187/114 (138) 100 Room Air I/O 05/08/17 05/08/17 05/08/17 05/09/17 05/09/17 05/09/17 07:00 15:00 23:00 07:00 15:00 23:00 Intake Total 2300 ml Balance 2300 ml Intake Oral 1500 ml Packed Cells 800 ml # Voids 3 Result Diagram: 05/09/17 0740 05/09/17 0740 Objective Remarks GENERAL: Pleasant young female in no acute distress. HEENT: PERRLA, EOMI. No scleral icterus or conjunctival pallor. No lid lag or facial droop. CARDIOVASCULAR: Regular rate and rhythm. No obvious murmurs to auscultation. No chest tenderness to palpation. RESPIRATORY: No obvious rhonchi or wheezing. Clear to auscultation. Breath sounds equal bilaterally. GASTROINTESTINAL: Abdomen soft, non-tender, nondistended. BS normal. MUSCULOSKELETAL: Extremities without clubbing, cyanosis, or edema. No obvious deformities. NEUROLOGICAL: Awake, alert and oriented x4. No focal neurologic deficits. Moving both upper and lower extremities spontaneously. A/P Problem List: (1) Anemia ICD Code: D64.9 - Anemia, unspecified (2) HTN (hypertension) ICD Code: I10 - Essential (primary) hypertension (3) CATA (acute kidney injury) ICD Code: N17.9 - Acute kidney failure, unspecified (4) Tobacco abuse ICD Code: Z72.0 - Tobacco use Assessment and Plan Anemia: Critical. Symptomatic. c/o worsening SOB w/ exertion x3 days, h/o DUB w/ heavy menstrual bleeding requiring transfusion. Hgb 5.9 at this time. 2u pRBC ordered, pending transfusion. Monitor Hgb/Hct. Repeat H/H still low, 6.7/22 transfuse additional 2U PRBC pretreat, and also start iron infusion. Will need outpatient follow-up w/ [facility] for eval of DUB, has already an appointment with service center coordinator as OP HTN: Uncontrolled. Pt non-compliant w/ meds. BP 190's on arrival, resume home Atenolol, monitor BP. Tobacco Abuse: Pt counselled. NicoDerm prn if needed. DVT Prophylaxis: Pharmacologic contraindication secondary to critical anemia Social work for d/c planning as needed. Problem Qualifiers (1) Anemia: Qualified Codes: D50.0 - Iron deficiency anemia secondary to blood loss ( chronic) Susanna Wilkes MD May 09, 2017 12:04
[2017-05-09] MEDS: DOCUSATE SODIUM 50 MG/SENNA 8.6 MG TAB PO SCH ×2 (13:36→21:18)
[2017-05-09] MEDS: ATENOLOL 50 MG TAB PO SCH (13:36)
[2017-05-09] MEDS: HYDROCHLOROTHIAZIDE 12.5 MG CAP PO SCH (13:37)
[2017-05-09] MEDS: SODIUM CHLORIDE 0.9% FLUSH 10 ML FLUSH IV FLUSH SCH ×2 (13:38→21:00)
[2017-05-09] MEDS: IRON SUCROSE INJ 100 MG in SODIUM CHLORIDE 0.9% INJ 100 ML IV SCH (14:03)
--- NOTE | 2017-05-09 14:59 | EKG ---
Date Performed: 05/08/2017 Time Performed: 20:15:20 PTAGE: 36 years EKG: Sinus rhythm Since previous tracing, no significant change noted NORMAL ECG PREVIOUS TRACING : 12/18/2016 18.29 DOCTOR: Hari Robledo Interpretating Date/Time 05/09/2017 14:58:02
[2017-05-09] MEDS ORDERED: MORPHINE SULFATE 2 MG/ML INJ IV ONE (16:15)
[2017-05-09] MEDS ORDERED: MORPHINE SULFATE 2 MG/ML INJ IV PUSH ONE (19:30)
[2017-05-09] MEDS ORDERED: cloNIDine HCL 0.1 MG TAB PO ONE (19:30)
[2017-05-10 00:20] VITALS: BP 151/90; PULSE 65; RESP 18; TEMP 98.1; O2SAT 100
[2017-05-10] MEDS: ACETAMINOPHEN/HYDROcodone 325 MG/5 MG TAB PO PRN (02:02)
[2017-05-10 08:00] VITALS: BP 156/99; PULSE 76; RESP 17; TEMP 98.4; O2SAT 100
[2017-05-10 08:15] LABS: AUTOMATED NEUTROPHIL # 5.7 TH/MM3 (1.8-7.7); BASOPHIL # 0.1 TH/MM3 (0-0.2); BASOPHIL % 0.8 % (0.0-2.0); EOSINOPHIL # 0.1 TH/MM3 (0-0.4); EOSINOPHIL % 0.7 % (0.0-4.0); HEMATOCRIT 32.2 % (35.0-46.0); HEMOGLOBIN 9.7 GM/DL (11.6-15.3); LYMPH % 10.3 % (9.0-44.0); LYMPHOCYTE # 0.8 TH/MM3 (1.0-4.8); MEAN CELL VOLUME 70.2 FL (80.0-100.0); MEAN CORPUSCULAR HEMOGLOBIN 21.1 PG (27.0-34.0); MEAN CORPUSCULAR HGB CONC 30.1 % (32.0-36.0); MONO % 11.6 % (0.0-8.0); MONOCYTE # 0.9 TH/MM3 (0-0.9); NEUT % 76.6 % (16.0-70.0); PLATELET COUNT 125 TH/MM3 (150-450); RED BLOOD COUNT 4.59 MIL/MM3 (4.00-5.30); RED CELL DISTRIBUTION WIDTH 28.5 % (11.6-17.2); WHITE BLOOD COUNT 7.4 TH/MM3 (4.0-11.0)
[2017-05-10] MEDS: ATENOLOL 50 MG TAB PO SCH (08:29)
[2017-05-10] MEDS: DOCUSATE SODIUM 50 MG/SENNA 8.6 MG TAB PO SCH (08:29)
[2017-05-10] MEDS: HYDROCHLOROTHIAZIDE 12.5 MG CAP PO SCH (08:29)
[2017-05-10] MEDS: IRON SUCROSE INJ 100 MG in SODIUM CHLORIDE 0.9% INJ 100 ML IV SCH (08:30)
[2017-05-10] MEDS: SODIUM CHLORIDE 0.9% FLUSH 10 ML FLUSH IV FLUSH SCH (08:30)
[2017-05-10 09:02] LABS: CALCIUM 8.8 MG/DL (8.5-10.1); CREATININE 1.03 MG/DL (0.50-1.00)
[2017-05-10 10:08] LABS: OVALOCYTES 2+ (NORMAL); POLYCHROMASIA 2.5 % (0.0-1.9)
[2017-05-10] MEDS ORDERED: FERR325T18 PO (10:52)
--- NOTE | 2017-05-10 22:31 | HHI.DS ---
Discharge Summary Admission Date May 08, 2017 at 21:24 Discharge Date: May 10, 2017 Admitting Diagnosis Symptomatic Anemia (1) Anemia ICD Code: D64.9 - Anemia, unspecified (2) HTN (hypertension) ICD Code: I10 - Essential (primary) hypertension (3) CATA (acute kidney injury) ICD Code: N17.9 - Acute kidney failure, unspecified (4) Tobacco abuse ICD Code: Z72.0 - Tobacco use Procedures None. Brief History - From Admission This is a 36-year-old female with a PMH of HTN, Dysfunctional Uterine Bleeding and Iron Deficiency Anemia who was referred to the ER by her PCP secondary to abnormal hemoglobin. Per pt she's had SOB, worse w/ exertion, moderate severity , associated w/ dizziness for approx 3 days. Denies fever, chills, chest pain or cough. Seen by PCP and had lab work done showing Hgb 5. Reports chronic heavy menstrual bleeding requiring transfusions in the past. On arrival, BP 187 /114, HR 120, O2 sat 100% on RA, Afebrile. Hemoglobin 5.9. Platelets 149, previous C2 76 on 02/26/17. Creatinine 1.20, previously 0.86 on 02/26/17. INR 1.1. UA negative. 2u pRBC ordered in ER, currently pending. CBC/BMP: 05/10/17 0757 05/10/17 0757 Significant Findings Laboratory Tests Test 05/08/17 20:08 05/08/17 20:30 05/09/17 07:40 05/10/17 07:57 Red Blood Count 3.51 MIL/MM3 (4.00-5.30) 3.35 MIL/MM3 (4.00-5.30) Hemoglobin 5.9 GM/DL (11.6-15.3) 6.7 GM/DL (11.6-15.3) 9.7 GM/DL (11.6-15.3) Hematocrit 21.6 % (35.0-46.0) 22.2 % (35.0-46.0) 32.2 % (35.0-46.0) Mean Corpuscular Volume 61.4 FL (80.0-100.0) 66.3 FL (80.0-100.0) 70.2 FL (80.0-100.0) Mean Corpuscular Hemoglobin 16.8 PG (27.0-34.0) 19.9 PG (27.0-34.0) 21.1 PG (27.0-34.0) Mean Corpuscular Hemoglobin Concent 27.3 % (32.0-36.0) 30.1 % (32.0-36.0) 30.1 % (32.0-36.0) Red Cell Distribution Width 22.8 % (11.6-17.2) 26.7 % (11.6-17.2) 28.5 % (11.6-17.2) Platelet Count 149 TH/MM3 (150-450) 112 TH/MM3 (150-450) 125 TH/MM3 (150-450) Neutrophils (%) (Auto) 78.0 % (16.0-70.0) 76.6 % (16.0-70.0) Monocytes (%) (Auto) 9.5 % (0.0-8.0) 12.9 % (0.0-8.0) 11.6 % (0.0-8.0) Lymphocytes # (Auto) 0.8 TH/MM3 (1.0-4.8) 0.8 TH/MM3 (1.0-4.8) Activated Partial Thromboplast Time 24.1 SEC (24.3-30.1) Creatinine 1.20 MG/DL (0.50-1.00) 1.03 MG/DL (0.50-1.00) Random Glucose 113 MG/DL (74-106) Aspartate Amino Transf (AST/SGOT) 11 U/L (15-37) Potassium Level 3.3 MEQ/L (3.5-5.1) Carbon Dioxide Level 20.5 MEQ/L (21.0-32.0) Estimat Glomerular Filtration Rate 62 ML/MIN (>89) 81 ML/MIN (>89) 74 ML/MIN (>89) Urine Bacteria RARE /hpf (NONE) Ovalocytes 1+ (NORMAL) 2+ (NORMAL) Acanthocytes OCC (NORMAL) Total Protein 6.2 GM/DL (6.4-8.2) Calcium Level 7.8 MG/DL (8.5-10.1) Chloride Level 110 MEQ/L (98-107) Platelet Estimate LOW (NORMAL) Platelet Morphology Comment ENLARGED (NORMAL) Polychromasia 2.5 % (0.0-1.9) PE at Discharge GENERAL: Pleasant young female in no acute distress. HEENT: PERRLA, EOMI. No scleral icterus or conjunctival pallor. No lid lag or facial droop. CARDIOVASCULAR: Regular rate and rhythm. No obvious murmurs to auscultation. No chest tenderness to palpation. RESPIRATORY: No obvious rhonchi or wheezing. Clear to auscultation. Breath sounds equal bilaterally. GASTROINTESTINAL: Abdomen soft, non-tender, nondistended. BS normal. MUSCULOSKELETAL: Extremities without clubbing, cyanosis, or edema. No obvious deformities. NEUROLOGICAL: Awake, alert and oriented x4. No focal neurologic deficits. Moving both upper and lower extremities spontaneously. Pt update on day of discharge Patient is doing well. Ambulating well, tolerating diet. No further bleeding. Hospital Course Ms. Kim is a 36 year old female who was admitted to the hospital due to symptomatic anemia. She has a history of heavy menstrual bleeding requiring transfusion. She received 2 units of PRBCs. She also received Iron infusion. She reported no further vaginal bleeding. She has an appt coming up with her Ob/ [facility] doctor. Her hemoglobin was 5.9 --> 6.7 --> 9.7. She also had mild elevation in creatinine which also resolved. She was subsequently discharged on 05/10/2017 with follow up with her doctors including Gynecology appointment. Pt Condition on Discharge: Good Discharge Disposition: Discharge Home Discharge Time: <= 30 minutes Discharge Instructions DIET: Follow Instructions for: As Tolerated, No Restrictions Activities you can perform: Regular-No Restrictions Follow up Referrals: [facility] - 1 Week Oncology/Hematology - 2 Weeks with Aaron Sutherland MD PCP Follow-up - 1 Week with Josr Lucero DO New Medications: Ferrous Sulfate (Ferrous Sulfate) 325 Mg (65 Mg Iron) Tablet 325 MG PO TIDPC for Nutritional Supplement, #90 TAB 0 Refills If possible, take it with [place] juice. Continued Medications: Acetaminophen (Tylenol) 325 Mg Tab 650 MG PO Q6H PRN for PAIN SCALE 1 TO 4, #20 TAB 0 Refills Atenolol (Atenolol) 50 Mg Tab 50 MG PO DAILY for Blood Pressure Management, #30 TAB 0 Refills Hydrochlorothiazide (Hydrochlorothiazide) 12.5 Mg Tab 12.5 MG PO DAILY, #30 TAB 0 Refills Beto Tovar DO May 10, 2017 22:31
== END 2017-05-10 11:27 | disposition home or self-care (01) | DRG 812 ==
LOC: NEPE 19:33 → NEDA 21:24 → NEPGCP 22:14
PROVIDERS: ADMIT Hospitalist; ATTEND Hospitalist
PROC: 30233N1 Transfusion of Nonautologous Red Blood Cells into Peripheral Vein, Percutaneous Approach (ICD-10-PCS; principal; 2017-05-08)
DX: D50.0 Iron deficiency anemia secondary to blood loss (chronic) (principal); N17.9 Acute kidney failure, unspecified; N93.8 Other specified abnormal uterine and vaginal bleeding; N92.0 Excessive and frequent menstruation with regular cycle; I10 Essential (primary) hypertension; D25.9 Leiomyoma of uterus, unspecified; R51 Headache; F17.200 Nicotine dependence, unspecified, uncomplicated; Z86.14 Personal history of Methicillin resistant Staphylococcus aureus infection; Z91.14 Patient's other noncompliance with medication regimen
CPT/HCPCS: 36430; 80048; 80053; 81001; 84703; 85025; 85610; 85730; 86077; 86850; 86870; 86900; 86901; 86902; 86920; 86922; 93005; J1200; J1756; J1940; J2270; J7030; J7050; P9016

== ENCOUNTER 2017-07-09 12:21 | Emergency (ER) | payer BC, OTHER ==
[~2017-07-09] VITALS: Ht 170.2 cm; Wt 68.0 kg
[~2017-07-09 12:21] MED LIST changes: -ATEN100T PO; +ATEN50TA PO; -BACT800T5 PO; -INFE50IN2 IV
[2017-07-09 12:24] VITALS: BP 163/77; PULSE 71; RESP 16; TEMP 98.5; O2SAT 100
[2017-07-09 12:47] LABS: BACTERIA, URINE RARE /hpf; BILIRUBIN, URINE NEG (NEG); BLOOD, URINE NEG (NEG); GLUCOSE,URINE NEG (NEG); KETONE, URINE NEG (NEG); MUCUS URINE FEW /lpf (OCC); NITRITE,URINE NEG (NEG); SQUAMOUS EPITHELIAL CELL URINE 24 /hpf (0-5); URINE COLOR YELLOW (YELLW/STRAW); URINE LEUKOCYTE ESTERASE MOD (NEG)
[2017-07-09] MEDS ORDERED: CLIN300C5 PO (13:16)
[2017-07-09] MEDS ORDERED: IBUP1TAB7 PO (13:16)
--- NOTE | 2017-07-09 13:16 | PD ---
HPI . Toothache Chief Complaint: Pain: Acute or Chronic Time Seen by Provider: 12:47 Travel History International Travel<30 days: No Contact w/Intl Traveler<30days: No Traveled to known affect area: No History of Present Illness HPI This patient presents with multiple complaints. I have cultured cachectic 1. Her chief complaint is a toothache. This started yesterday. Her left upper third molar. She states that she has taken a total of 4 BC powders and 2 or 3 Aleve for pain. She rates the pain 9/10. Her other complaints include headache, shortness of breath, pelvic pain and lower extremity edema. PFSH Past Medical History Hx Anticoagulant Therapy: No Anemia: Yes Blood Disorders: No Anxiety: No Depression: No Heart Rhythm Problems: No Cancer: No Cardiovascular Problems: Yes (HTN) High Cholesterol: No Chemotherapy: No Chest Pain: Yes Congestive Heart Failure: No COPD: No Cerebrovascular Accident: No Diabetes: No Diminished Hearing: No Endocrine: No Gastrointestinal Disorders: No Genitourinary: No Headaches: Yes Hypertension: Yes Immune Disorder: No Musculoskeletal: No Neurologic: No Psychiatric: No Reproductive: No Respiratory: No Immunizations Current: Yes Migraines: Yes Pneumonia: Yes Radiation Therapy: No Sleep Apnea: No PNEUMOCCOCAL Vaccine (Year): 2 ?: Not LMP: MAY 2017 : 4 Para: 4 Miscarriage: 0 : 0 Ectopic : No Ovarian Cysts: No Tubal Ligation: Yes (2007) Past Surgical History Abdominal Surgery: Yes ( 12/15/05, TUBAL LIGATION 12/15/05) AICD: No Cardiac Surgery: No Section: Yes (X2) Gynecologic Surgery: Yes (C SECTION) Hysterectomy: No Neurologic Surgery: No Social History Alcohol Use: Yes (OCC) Tobacco Use: Yes (PPD smoker) Substance Use: No Allergies-Medications (Allergen,Severity, Reaction): Coded Allergies: *MDRO Multi-Drug Resistant Organism (Verified Adverse Reaction, Unknown, ) MRSA Wound Arm 10/2016 Reported Meds & Prescriptions Reported Meds & Active Scripts Active Ferrous Sulfate 325 Mg (65 Mg Iron) Tablet 325 Mg PO TIDPC If possible, take it with [place] juice. Tylenol (Acetaminophen) 325 Mg Tab 650 Mg PO Q6H PRN Hydrochlorothiazide 12.5 Mg Tab 12.5 Mg PO DAILY Reported Atenolol 50 Mg Tab 50 Mg PO DAILY Review of Systems Except as stated in HPI: all other systems reviewed are Neg HENT: Positive: Headaches Respiratory: Positive: Shortness of Breath Genitourinary: Positive: Pelvic Pain Musculoskeletal: Positive: Edema Physical Exam Narrative GENERAL: Awake and alert and in no acute distress. SKIN: Warm and dry. HEAD: Normocephalic/atraumatic. No facial swelling. EYES: Pupils are equal. Extraocular movements are intact. ENT: Deep caries upper third molar stated tenderness to percussion. No edema or erythema of the gum. NECK: Normal range of motion. No cervical lymphadenopathy. CARDIOVASCULAR: Regular rate and rhythm. Heart sounds are normal. RESPIRATORY: Nonlabored respirations. Lungs are clear with full air movement throughout. Her respiratory rate is 16 and her oxygen saturation on room air is 100%. MUSCULOSKELETAL: Atraumatic. NEUROLOGICAL: Nonfocal. PSYCHIATRIC: Appropriate mood and affect. Data Data Last Documented VS Vital Signs Date Time Temp Pulse Resp B/P (MAP) Pulse Ox O2 Delivery O2 Flow Rate FiO2 07/09/17 12:24 98.5 71 16 163/77 (105) 100 Orders Orders Urinalysis - C+S If Indicated (07/09/17 12:26) Ed Urine Pregnancytest Poc (07/09/17 12:26) Labs Laboratory Tests Test 07/09/17 12:30 Urine Color YELLOW Urine Turbidity HAZY Urine pH 6.0 Urine Specific [place] 1.022 Urine Protein TRACE mg/dL Urine Glucose (UA) NEG mg/dL Urine Ketones NEG mg/dL Urine Occult Blood NEG Urine Nitrite NEG Urine Bilirubin NEG Urine Urobilinogen LESS THAN 2.0 MG/DL Urine Leukocyte Esterase MOD Urine RBC 1 /hpf Urine WBC 4 /hpf Urine Squamous Epithelial Cells 24 /hpf Urine Bacteria RARE /hpf Urine Mucus FEW /lpf Microscopic Urinalysis Comment CULT NOT INDICATED MDM Medical Decision Making Medical Screen Exam Complete: Yes Emergency Medical Condition: Yes Differential Diagnosis Differential diagnosis of a toothache includes but is not limited to dental caries, dental abscess, gingivitis, drug-seeking behavior. Narrative Course This patient presents with the chief complaint of a toothache. On exam, she has deep caries of the involved tooth which is her left upper wisdom tooth. She will be treated with clindamycin and ibuprofen and will be instructed to follow-up with a dentist. Regarding her other complaints, emergency medical conditions were ruled out based on urine test and physical exam. She is complaining with shortness of breath but has clear lungs with a respiratory rate of 16 and a saturation of 100%. Her urine test is negative. Diagnosis Primary Impression: Toothache Patient Instructions: General Instructions, Toothache (ED) Additional Instructions: Follow-up with a dentist of choice. The emergency department can provide treatment for infection related to dental abscesses but we cannot provide definitive care for your dental problem. You'll have to see a dentist. Med/Other Pt SpecificInfo: Prescription(s) given Scripts Ibuprofen (Ibuprofen) 800 Mg Tab 800 MG PO Q8H Y for Pain/Inflammation, #60 TAB 0 Refills Prov: Kamila Cash MD 07/09/17 Clindamycin (Clindamycin) 300 Mg Cap 300 MG PO TID for Infection, #21 CAP 0 Refills Prov: Kamila Cash MD 07/09/17 Disposition: 01 DISCHARGE HOME Condition: Stable Kamila Cash MD Jul 09, 2017 13:16
== END 2017-07-09 13:28 | disposition home or self-care (01) ==
LOC: NEPD 12:21
DX: K08.89 Other specified disorders of teeth and supporting structures (principal); K02.9 Dental caries, unspecified; R06.02 Shortness of breath; R51 Headache; R10.2 Pelvic and perineal pain; R60.0 Localized edema; I10 Essential (primary) hypertension; D64.9 Anemia, unspecified; F17.200 Nicotine dependence, unspecified, uncomplicated
CPT/HCPCS: 81001; 84703; 99283

== ENCOUNTER 2017-07-13 07:23 | Observation (INO) | payer OTHER ==
[~2017-07-13] VITALS: Ht 167.6 cm; Wt 83.6 kg
[~2017-07-13 07:23] MED LIST changes: +CLIN300C5 PO; +IBUP1TAB7 PO
[2017-07-13 07:30] VITALS: BP 188/86; PULSE 70; RESP 16; TEMP 99.3; O2SAT 100
[2017-07-13 08:49] LABS: AUTOMATED NEUTROPHIL # 5.4 TH/MM3 (1.8-7.7); BASOPHIL % 0.6 % (0.0-2.0); EOSINOPHIL % 0.5 % (0.0-4.0); HEMATOCRIT 26.4 % (35.0-46.0); LYMPH % 12.4 % (9.0-44.0); LYMPHOCYTE # 0.9 TH/MM3 (1.0-4.8); MEAN CELL VOLUME 76.2 FL (80.0-100.0); MEAN CORPUSCULAR HGB CONC 30.2 % (32.0-36.0); MEAN PLATELET VOLUME 6.5 FL (7.0-11.0); MONO % 7.9 % (0.0-8.0); MONOCYTE # 0.5 TH/MM3 (0-0.9); NEUT % 78.6 % (16.0-70.0); PLATELET COUNT 251 TH/MM3 (150-450); RED BLOOD COUNT 3.46 MIL/MM3 (4.00-5.30); RED CELL DISTRIBUTION WIDTH 19.6 % (11.6-17.2); WHITE BLOOD COUNT 6.9 TH/MM3 (4.0-11.0)
[2017-07-13 09:15] LABS: BICARBONATE 23.8 MEQ/L (21.0-32.0); BLOOD UREA NITROGEN 12 MG/DL (7-18); CALCIUM 8.4 MG/DL (8.5-10.1); CHLORIDE 109 MEQ/L (98-107); CREATININE 1.06 MG/DL (0.50-1.00); GLOMERULAR FILTRATION RATE 72 ML/MIN (>89); GLUCOSE,RANDOM 95 MG/DL (74-106); SODIUM (NA) 140 MEQ/L (136-145)
[2017-07-13 09:20] LABS: TROPONIN I LESS THAN 0.02 NG/ML (0.02-0.05)
[2017-07-13 09:29] LABS: OVALOCYTES 2+ (NORMAL)
--- NOTE | 2017-07-13 09:38 | RADRPT ---
EXAM DATE/TIME: 07/13/2017 08:13 [facility] COMPARISON: CHEST SINGLE AP, December 18, 2016, 3:17. INDICATIONS : Short of breath. Patient complains of shortness of breath, swelling in both ankles and feet, and also constipation. MEDICAL HISTORY : Hypertension. Uterine fibriods SURGICAL HISTORY : Tubal ligation. section. ENCOUNTER: Initial ACUITY: 1 week PAIN SCORE: 0/10 LOCATION: Bilateral chest FINDINGS: Patchy interstitial and alveolar air space disease is seen in both lungs suspicious for diffuse infla mmatory process. The cardiac silhouette is mildly prominent for 33-year-old. Congestive failure would be of more katalina te consideration. The portion of the bony skeleton visualized is unremarkable. CONCLUSION: Abnormal chest. Considerations include both inflammatory interstitial edema and congestive failure. This is thought to represent inflammatory process. Correlation suggested to exclude congestive failu re.. Adriano Beyer MD FACR on July 13, 2017 at 9:34 Board Certified Radiologist. This report was verified electronically.
[2017-07-13 11:21] VITALS: BP 215/121; PULSE 78; RESP 18; O2SAT 100
--- NOTE | 2017-07-13 11:22 | PD ---
HPI Chief Complaint: Medical Clearance Time Seen by Provider: 10:52 Travel History International Travel<30 days: No Contact w/Intl Traveler<30days: No Traveled to known affect area: No History of Present Illness HPI 36-year-old female presents to the emergency department with complaint of worsening of shortness of breath 4 days, bilateral feet and ankle swelling 2 days. She is also complaining of constipation 1 week and does not know when her last bowel movement wears. She denies abdominal pain. Reports midsternal chest pain. Shortness of breath is worse with activity and while at rest. Says the chest pain comes and goes. No known aggravating or relieving factors. No radiation of pain. Reports tobacco use. Denies IV drug use. Denies alcohol use. Denies recent viral illness. Is currently taking clindamycin for a toothache that she was seen here for 4 days ago. Denies fever, vomiting. Denies cardiac family history. Denies self history of any cardiac events. Has tried [id number] laxatives for constipation with no relief. Has also been taking ibuprofen for her tooth pain which has not been helping with her chest pain. Symptoms are moderate in severity. She has history of anemia, hypertension. She has not taken her atenolol or hydrochlorothiazide this morning. Denies allergies. No primary care provider. Has no other medical complaints. No other modifying factors or associated signs and symptoms. PFSH Past Medical History Hx Anticoagulant Therapy: No Anemia: Yes Blood Disorders: No Anxiety: No Depression: No Heart Rhythm Problems: No Cancer: No Cardiovascular Problems: Yes (HTN) High Cholesterol: No Chemotherapy: No Chest Pain: Yes Congestive Heart Failure: No COPD: No Cerebrovascular Accident: No Diabetes: No Diminished Hearing: No Endocrine: No Genitourinary: No Headaches: Yes Hypertension: Yes Immune Disorder: No Musculoskeletal: No Neurologic: No Psychiatric: No Reproductive: No Respiratory: No Immunizations Current: Yes Migraines: Yes Pneumonia: Yes Radiation Therapy: No Sleep Apnea: No PNEUMOCCOCAL Vaccine (Year): 2 ?: Not LMP: 05/30/17 : 4 Para: 4 Miscarriage: 0 : 0 Ectopic : No Ovarian Cysts: No Tubal Ligation: Yes (2007) Past Surgical History Abdominal Surgery: Yes ( 12/15/05, TUBAL LIGATION 12/15/05) AICD: No Cardiac Surgery: No Section: Yes (X2) Gynecologic Surgery: Yes (C SECTION) Hysterectomy: No Neurologic Surgery: No Other Surgery: Yes (c-s x 2) Social History Alcohol Use: Yes (OCC) Tobacco Use: Yes (PPD smoker) Substance Use: No Allergies-Medications (Allergen,Severity, Reaction): Coded Allergies: caffeine (Verified Allergy, Unknown, 07/13/17) *MDRO Multi-Drug Resistant Organism (Verified Adverse Reaction, Unknown, ) MRSA Wound Arm 10/2016 No Known Allergies (Unverified , 07/13/17) Reported Meds & Prescriptions Reported Meds & Active Scripts Active Ibuprofen 800 Mg Tab 800 Mg PO Q8H PRN Clindamycin (Clindamycin HCl) 300 Mg Cap 300 Mg PO TID Ferrous Sulfate 325 Mg (65 Mg Iron) Tablet 325 Mg PO TIDPC If possible, take it with [place] juice. Hydrochlorothiazide 12.5 Mg Tab 12.5 Mg PO DAILY Reported Atenolol 50 Mg Tab 50 Mg PO DAILY Review of Systems Except as stated in HPI: all other systems reviewed are Neg Physical Exam Narrative GENERAL: Well-nourished, well-developed female patient, in no acute distress SKIN: Warm and dry. HEAD: Atraumatic. Normocephalic. EYES: Pupils equal and round. No scleral icterus. No injection or drainage. ENT: Mucosa pink and moist. Airway patent. NECK: Trachea midline. CARDIOVASCULAR: Regular rate and rhythm. Abnormal heart sounds noted; Dr. Grigsby auscultated and states S3 gallop. No murmur appreciated. RESPIRATORY: No accessory muscle use. Clear to auscultation. Breath sounds equal bilaterally. GASTROINTESTINAL: Abdomen soft, non-tender, nondistended. Hepatic and splenic margins not palpable. Bowel sounds are active 4 quadrants. MUSCULOSKELETAL: No obvious deformities. No clubbing. No cyanosis. No edema. NEUROLOGICAL: Awake and alert. Oriented 3. No obvious cranial nerve deficits. Motor grossly within normal limits. Normal speech. PSYCHIATRIC: Appropriate mood and affect; insight and judgment normal. Data Data Last Documented VS Vital Signs Date Time Temp Pulse Resp B/P (MAP) Pulse Ox O2 Delivery O2 Flow Rate FiO2 07/13/17 11:21 78 18 215/121 (152) 100 Room Air 07/13/17 11:21 2.00 07/13/17 07:30 99.3 Orders Orders Electrocardiogram (07/13/17 07:42) Complete Blood Count With Diff (07/13/17 07:42) Basic Metabolic Panel (Bmp) (07/13/17 07:42) Ckmb (Isoenzyme) Profile (07/13/17 07:42) Troponin I (07/13/17 07:42) Oxygen Administration (07/13/17 07:42) Oximetry (07/13/17 07:42) Chest, Pa & Lat (07/13/17 07:42) Blood Culture (07/13/17 07:42) CKMB (07/13/17 08:26) CKMB% (07/13/17 08:26) B-Type Natriuretic Peptide (07/13/17 10:56) Furosemide Inj (Lasix Inj) (07/13/17 11:30) Aspirin Chew (Aspirin Chew) (07/13/17 11:30) Nitroglycerin Sl (Nitrostat Sl) (07/13/17 11:30) Docusate Sodium (Colace) (07/13/17 12:00) Acetaminophen (Tylenol) (07/13/17 12:00) Labs Laboratory Tests Test 07/13/17 08:26 White Blood Count 6.9 TH/MM3 Red Blood Count 3.46 MIL/MM3 Hemoglobin 8.0 GM/DL Hematocrit 26.4 % Mean Corpuscular Volume 76.2 FL Mean Corpuscular Hemoglobin 23.0 PG Mean Corpuscular Hemoglobin Concent 30.2 % Red Cell Distribution Width 19.6 % Platelet Count 251 TH/MM3 Mean Platelet Volume 6.5 FL Neutrophils (%) (Auto) 78.6 % Lymphocytes (%) (Auto) 12.4 % Monocytes (%) (Auto) 7.9 % Eosinophils (%) (Auto) 0.5 % Basophils (%) (Auto) 0.6 % Neutrophils # (Auto) 5.4 TH/MM3 Lymphocytes # (Auto) 0.9 TH/MM3 Monocytes # (Auto) 0.5 TH/MM3 Eosinophils # (Auto) 0.0 TH/MM3 Basophils # (Auto) 0.0 TH/MM3 CBC Comment AUTO DIFF Differential Comment AUTO DIFF CONFIRMED Platelet Estimate NORMAL Platelet Morphology Comment NORMAL Ovalocytes 2+ Blood Urea Nitrogen 12 MG/DL Creatinine 1.06 MG/DL Random Glucose 95 MG/DL Calcium Level 8.4 MG/DL Sodium Level 140 MEQ/L Potassium Level 4.0 MEQ/L Chloride Level 109 MEQ/L Carbon Dioxide Level 23.8 MEQ/L Anion Gap 7 MEQ/L Estimat Glomerular Filtration Rate 72 ML/MIN Total Creatine Kinase 147 U/L Creatine Kinase MB 0.7 NG/ML Troponin I LESS THAN 0.02 NG/ML B-Type Natriuretic Peptide 402 PG/ML MDM Medical Decision Making Medical Screen Exam Complete: Yes Emergency Medical Condition: Yes Medical Record Reviewed: Yes Differential Diagnosis Congestive heart failure, pulmonary edema, pneumonia, PE Narrative Course 36-year-old female with shortness of breath and chest pain. Chest pain protocol ordered in triage. 1100: Hemoglobin 8.0. Patient has history of asymptomatic anemia. Hemoglobin level is consistent with past levels. BMP unremarkable. Troponin less than 0.02. EKG with normal sinus rhythm. Chest x-ray concluded: Chest X-Ray 07/13/17 0742 Signed Impressions: Service Date/Time: Thursday, July 13, 2017 08:13 - CONCLUSION: Abnormal chest. Considerations include both inflammatory interstitial edema and congestive failure. This is thought to represent inflammatory process. Correlation suggested to exclude congestive failure.. Adriano Beyer MD FACR Discussed x-ray findings with the patient. BNP ordered. 1115: Dr. Grigsby evaluated the patient and recommended lasix and aspirin. 1203: BNP 402. Call placed for patient admission. 1220: I spoke with Dr. Aguilera, [facility] and report was given for patient admission. Physician Communication Physician Communication Dr. Aguilera, [facility] Diagnosis Primary Impression: New onset of congestive heart failure Admitting Information Admitting Physician Requests: Admit Carrie Blanco Jul 13, 2017 11:22
--- NOTE | 2017-07-13 11:26 | PD ---
Physical Exam Narrative I, Dr. Grigsby, have reviewed the advance practice practitioner's documentation and am in agreement, met with the patient face to face, made the diagnosis, and the medical decision making was done by me. *My assessment and Findings: New onset CHF vs. Pneumonia vs. ACS 36yo F with no significant cardiac history here with c/o sob for 1 week and bilateral lower extremity edema for 3-4 days. Pt said sob is worst with exertion and lying down. Labs reviewed, no leukocytosis. H/H low at 8/26.4 which is better than baseline as pt has chronic anemia secondary to uterine fibroids. Troponin negative. BNP 402. CXR showed interstitial edema and congestive failure. Only PMH is HTN. On physical exam, she does have a new S3 gallop and mild edema in bilateral lower extremities. BP is elevated and pt given lasix, aspirin and sublingual nitro. Pt admitted to Dr. Aguilera. Data Data Last Documented VS Vital Signs Date Time Temp Pulse Resp B/P (MAP) Pulse Ox O2 Delivery O2 Flow Rate FiO2 07/13/17 12:21 179/105 (129) 07/13/17 11:21 78 18 100 Room Air 07/13/17 11:21 2.00 07/13/17 07:30 99.3 Orders Orders Electrocardiogram (07/13/17 07:42) Complete Blood Count With Diff (07/13/17 07:42) Basic Metabolic Panel (Bmp) (07/13/17 07:42) Ckmb (Isoenzyme) Profile (07/13/17 07:42) Troponin I (07/13/17 07:42) Oxygen Administration (07/13/17 07:42) Oximetry (07/13/17 07:42) Chest, Pa & Lat (07/13/17 07:42) Blood Culture (07/13/17 07:42) CKMB (07/13/17 08:26) CKMB% (07/13/17 08:26) B-Type Natriuretic Peptide (07/13/17 10:56) Furosemide Inj (Lasix Inj) (07/13/17 11:30) Aspirin Chew (Aspirin Chew) (07/13/17 11:30) Nitroglycerin Sl (Nitrostat Sl) (07/13/17 11:30) Docusate Sodium (Colace) (07/13/17 12:00) Acetaminophen (Tylenol) (07/13/17 12:00) Admit Order (Ed Use Only) (07/13/17 12:22) Labs Laboratory Tests Test 07/13/17 08:26 White Blood Count 6.9 TH/MM3 Red Blood Count 3.46 MIL/MM3 Hemoglobin 8.0 GM/DL Hematocrit 26.4 % Mean Corpuscular Volume 76.2 FL Mean Corpuscular Hemoglobin 23.0 PG Mean Corpuscular Hemoglobin Concent 30.2 % Red Cell Distribution Width 19.6 % Platelet Count 251 TH/MM3 Mean Platelet Volume 6.5 FL Neutrophils (%) (Auto) 78.6 % Lymphocytes (%) (Auto) 12.4 % Monocytes (%) (Auto) 7.9 % Eosinophils (%) (Auto) 0.5 % Basophils (%) (Auto) 0.6 % Neutrophils # (Auto) 5.4 TH/MM3 Lymphocytes # (Auto) 0.9 TH/MM3 Monocytes # (Auto) 0.5 TH/MM3 Eosinophils # (Auto) 0.0 TH/MM3 Basophils # (Auto) 0.0 TH/MM3 CBC Comment AUTO DIFF Differential Comment AUTO DIFF CONFIRMED Platelet Estimate NORMAL Platelet Morphology Comment NORMAL Ovalocytes 2+ Blood Urea Nitrogen 12 MG/DL Creatinine 1.06 MG/DL Random Glucose 95 MG/DL Calcium Level 8.4 MG/DL Sodium Level 140 MEQ/L Potassium Level 4.0 MEQ/L Chloride Level 109 MEQ/L Carbon Dioxide Level 23.8 MEQ/L Anion Gap 7 MEQ/L Estimat Glomerular Filtration Rate 72 ML/MIN Iron Level 13 MCG/DL Total Iron Binding Capacity 462 MCG/DL Percent Iron Saturation 2.8 % Ferritin 6 NG/ML Total Creatine Kinase 147 U/L Creatine Kinase MB 0.7 NG/ML Troponin I LESS THAN 0.02 NG/ML B-Type Natriuretic Peptide 402 PG/ML MDM Supervised Visit with JOSE: Yes Interpretation(s) EKG: NSR 70bpm. Normal axis. No ST segment elevation or depression. TWI V2. Diagnosis Primary Impression: New onset of congestive heart failure Admitting Information Admitting Physician Requests: Admit Raysa Grigsby DO Jul 13, 2017 11:26
[2017-07-13] MEDS ORDERED: ASPIRIN 81 MG CHEW TAB CHEW ONE (11:30)
[2017-07-13] MEDS ORDERED: FUROSEMIDE 40 MG/4 ML VIAL IV PUSH ONE (11:30)
[2017-07-13] MEDS ORDERED: ACETAMINOPHEN 325 MG TAB PO ONE (12:00)
[2017-07-13] MEDS ORDERED: DOCUSATE SODIUM 100 MG CAP PO ONE (12:00)
[2017-07-13] MEDS: NITROGLYCERIN 0.4 MG SL 25 TABS/BTL SL PRN ×2 (12:04→12:30)
[2017-07-13 12:21] VITALS: BP 179/105
--- NOTE | 2017-07-13 13:47 | HHI.HP ---
HPI Service [facility] Hospitalists Primary Care Physician Dr. Ludy Juarez Admission Diagnosis Anemia, SOB Chief Complaint: SOB, LE edema Travel History International Travel<30 Days: No Contact w/Intl Traveler <30 Da: No Traveled to Known Affected Are: No History of Present Illness Ms. Kim is a pleasant 36 y/o AAF with HTN and chronic microcytic anemia reportedly related to DUB/uterine fibroids. She reports that she was previously given Tranexamic acid in early May 2017 and has not had a period since that time. Pt presented to the ED at [facility] on 07/13/17 with complaints of SOB x 4 days, worse when trying to lie down flat and worse with exertion. She denies any chest pain, cough, fevers/chills, palpitations, diaphoresis, nausea/ vomiting. She also reported LE edema x 4 days. CXR in the ED was abnormal indicating possible inflammatory interstitial edema and/or congestive failure. Pt was given IV Lasix in the ED and her LE edema has improved today after being given Lasix. She has urinated about 8 times since the Lasix this morning. She feels that the breathing is a little better since the Lasix as well. No previous similar issues. Pt takes HCTZ and Atenolol but has been out of medicine for the last 3 days because she hasn't picked it up from the pharmacy. Her BP usually runs 130-140 systolic when she is on her medications. She was on iron supplements until 2 weeks ago, she stopped because it was making her nauseated. She was seen in the ED on 07/09 for a toothache on the left side. She was prescribed Clindamycin from the ED. The pain seemed to occur more with cold food items but doesn't seem to always hurt with chewing food. She also report that the pain is worse with exertion/movement and describes some radiation of pain down her left arm. She has been taking BC Powder x 4 and Aleve x 2 tablets prior to that ER visit for the tooth ache. She has continued to take Aleve 3-4 tablets per day and has taken Ibuprofen a few times per day as well. She does get some relief temporarily with the NSAIDs. She has been constipated for the last week or so. She did have a BM here after being given a stool softener but denies any melanotic stools. Pt follows with Dr. Sandy for OBGyn. Her assigned [facility] PCP is Dr. Juarez but she has not seen Dr. Juarez yet. Review of Systems Constitutional: DENIES: Fever, Chills Eyes: DENIES: Vision loss Ears, nose, mouth, throat: COMPLAINS OF: Toothache, DENIES: Hearing loss, Oral lesions, Hoarseness, Running Nose Respiratory: DENIES: Cough, Sputum production Cardiovascular: COMPLAINS OF: Dyspnea on Exertion, Lower Extremity Edema, Orthopnea, DENIES: Chest pain, Palpitations, Syncope, Claudication Gastrointestinal: COMPLAINS OF: Constipation, DENIES: Abdominal pain, Diarrhea , Nausea, Vomiting Musculoskeletal: DENIES: Back pain, Neck pain Integumentary: DENIES: Rash Neurologic: DENIES: Headache, Localized weakness, Speech Problems Psychiatric: DENIES: Confusion Past Family Social History Past Medical History HTN Uterine fibroids Microcytic anemia, reportedly related to DUB Past Surgical History None reported Reported Medications Ibuprofen 800 Mg Tab 800 Mg PO Q8H PRN Clindamycin (Clindamycin HCl) 300 Mg Cap 300 Mg PO TID Hydrochlorothiazide 12.5 Mg Tab 12.5 Mg PO DAILY Atenolol 50 Mg Tab 50 Mg PO DAILY Allergies: Coded Allergies: *MDRO Multi-Drug Resistant Organism (Verified Adverse Reaction, Unknown, ) MRSA Wound Arm 10/2016 Family History Denies any known family hx of CAD or PA Social History Pt smokes 1ppd x 18 years. Occasional social alcohol use Denies any illicit drug use Physical Exam Vital Signs Vital Signs Date Time Temp Pulse Resp B/P (MAP) Pulse Ox O2 Delivery O2 Flow Rate FiO2 07/13/17 12:21 179/105 (129) 07/13/17 11:21 78 18 215/121 (152) 100 Room Air 07/13/17 11:21 100 Nasal Cannula 2.00 07/13/17 11:21 100 Nasal Cannula 2.00 07/13/17 07:30 99.3 70 16 188/86 (120) 100 Physical Exam GENERAL: This is a well-nourished, well-developed patient, in no apparent distress. SKIN: No rashes, ecchymoses or lesions. Cool and dry. HEENT: Atraumatic. Normocephalic. No temporal or scalp tenderness. No scleral icterus. Airway patent. NECK: Trachea midline, supple, nontender. CARDIO: Regular rate and rhythm. RESP: CTA bilaterally. No wheezes, rales, or rhonchi. ABD: +BS, soft, non-tender, nondistended. No hepato-splenomegaly, or palpable masses. No guarding. EXT: Extremities without clubbing, cyanosis, or edema. NEURO: Awake and alert. Motor and sensory grossly within normal limits. Normal speech. Laboratory Laboratory Tests Test 07/13/17 08:26 White Blood Count 6.9 Red Blood Count 3.46 Hemoglobin 8.0 Hematocrit 26.4 Mean Corpuscular Volume 76.2 Mean Corpuscular Hemoglobin 23.0 Mean Corpuscular Hemoglobin Concent 30.2 Red Cell Distribution Width 19.6 Platelet Count 251 Mean Platelet Volume 6.5 Neutrophils (%) (Auto) 78.6 Lymphocytes (%) (Auto) 12.4 Monocytes (%) (Auto) 7.9 Eosinophils (%) (Auto) 0.5 Basophils (%) (Auto) 0.6 Neutrophils # (Auto) 5.4 Lymphocytes # (Auto) 0.9 Monocytes # (Auto) 0.5 Eosinophils # (Auto) 0.0 Basophils # (Auto) 0.0 CBC Comment AUTO DIFF Differential Comment AUTO DIFF CONFIRMED Platelet Estimate NORMAL Platelet Morphology Comment NORMAL Ovalocytes 2+ Blood Urea Nitrogen 12 Creatinine 1.06 Random Glucose 95 Calcium Level 8.4 Sodium Level 140 Potassium Level 4.0 Chloride Level 109 Carbon Dioxide Level 23.8 Anion Gap 7 Estimat Glomerular Filtration Rate 72 Total Creatine Kinase 147 Creatine Kinase MB 0.7 Troponin I LESS THAN 0.02 B-Type Natriuretic Peptide 402 Date/Time Source Procedure Growth Status 07/13/17 08:36 Blood Peripheral Aerobic Blood Culture Pending Received 07/13/17 08:36 Blood Peripheral Anaerobic Blood Culture Pending Received Result Diagram: 07/13/17 0826 07/13/17 0826 Imaging Last Impressions Chest X-Ray 07/13/17 0742 Signed Impressions: Service Date/Time: Thursday, July 13, 2017 08:13 - CONCLUSION: Abnormal chest. Considerations include both inflammatory interstitial edema and congestive failure. This is thought to represent inflammatory process. Correlation suggested to exclude congestive failure.. Adriano Beyer MD FACR Caprini VTE Risk Assessment Caprini VTE Risk Assessment: No/Low Risk (score <= 1) Caprini Risk Assessment Model Point Value = 1 Point Value = 2 Point Value = 3 Point Value = 5 Age 41-60 Minor surgery BMI > 25 kg/m2 Swollen legs Varicose veins or History of unexplained or recurrent spontaneous Oral contraceptives or hormone replacement Sepsis (< 1 month) Serious lung disease, including pneumonia (< 1 month) Abnormal pulmonary function Acute myocardial infarction Congestive heart failure (< 1 month) History of inflammatory bowel disease Medical patient at bed rest Age 61-74 Arthroscopic surgery Major open surgery (> 45 min) Laparoscopic surgery (> 45 min) Malignancy Confined to bed (> 72 hours) Immobilizing plaster cast Central venous access Age >= 75 History of VTE Family history of VTE Factor V Leiden Prothrombin [id number] Lupus anticoagulant Anticardiolipin antibodies Elevated serum homocysteine Heparin-induced thrombocytopenia Other congenital or acquired thrombophilia Stroke (< 1 month) Elective arthroplasty Hip, pelvis, or leg fracture Acute spinal cord injury (< 1 month) Prophylaxis Regimen Total Risk Factor Score Risk Level Prophylaxis Regimen 0-1 Low Early ambulation 2 Moderate Order ONE of the following: *Sequential Compression Device (SCD) *Heparin 5000 units SQ BID 3-4 Higher Order ONE of the following medications: *Heparin 5000 units SQ TID *Enoxaparin/Lovenox 40 mg SQ daily (WT < 150 kg, CrCl > 30 mL/min) *Enoxaparin/Lovenox 30 mg SQ daily (WT < 150 kg, CrCl > 10-29 mL/min) *Enoxaparin/Lovenox 30 mg SQ BID (WT < 150 kg, CrCl > 30 mL/min) AND/OR *Sequential Compression Device (SCD) 5 or more Highest Order ONE of the following medications: *Heparin 5000 units SQ TID (Preferred with Epidurals) *Enoxaparin/Lovenox 40 mg SQ daily (WT < 150 kg, CrCl > 30 mL/min) *Enoxaparin/Lovenox 30 mg SQ daily (WT < 150 kg, CrCl > 10-29 mL/min) *Enoxaparin/Lovenox 30 mg SQ BID (WT < 150 kg, CrCl > 30 mL/min) AND *Sequential Compression Device (SCD) Assessment and Plan Problem List: (1) SOB (shortness of breath) on exertion ICD Codes: R06.02 - Shortness of breath Status: Acute Plan: Exertional dyspnea LE edema - Pt is a 36 y/o AAF with HTN and chronic microcytic anemia reportedly related to DUB/uterine fibroids. - Pt presented to the ED at [facility] on 07/13/17 with complaints of SOB x 4 days, worse when trying to lie down flat and worse with exertion. She also describes some left jaw/?tooth pain that began prior to her SOB symptoms and there is questionable radiation of this pain down the left arm. She denies any chest pain, cough, fevers/chills, palpitations, diaphoresis, nausea/vomiting. She also reported LE edema x 4 days. - CXR in the ED was abnormal indicating possible inflammatory interstitial edema and/or congestive failure. - Pt was given IV Lasix in the ED and her LE edema has improved today after being given Lasix. She has urinated about 8 times since the Lasix this morning. She feels that the breathing is a little better since the Lasix as well. - Its not very clear if these above symptoms are cardiac in origin. She doesn't have any obvious oral infection/tooth abscess that is causing her pain, this could be an anginal equivalent. Her BP is quite high in the ED but she has reportedly not been on her meds the last 3 days. - We will check 2D echo - hall monitor - Will hold off on continued Lasix at this time as pt seems to be symptomatically improving after one dose. - Check Lexiscan in AM - Check TSH/Free T4 - Supportive care Microcytic anemia Hx of DUB/uterine fibroids - She reports that she was previously given Tranexamic acid in early May 2017 and has not had a period since that time - She was on iron supplements until 2 weeks ago, she stopped because it was making her nauseated. - Check iron studies of blood already drawn today - We will given IV iron during admission - Monitor labs - Check beta HCG - Pt follows with Dr. Sandy for OBGyn HTN - Pt takes HCTZ and Atenolol but has been out of medicine for the last 3 days because she hasn't picked it up from the pharmacy. - She reports that her BP usually runs 130-140 systolic when she is on her medications - Resume her home meds - Clonidine PRN DVT prophylaxis with SCDs (2) HTN (hypertension) ICD Codes: I10 - Essential (primary) hypertension Status: Chronic (3) Anemia ICD Codes: D64.9 - Anemia, unspecified Status: Chronic Assessment and Plan Patient examined. Assessment and plan formulated with Amena Briseno PA-C. I agree with the above. presented with sob and heart failure sx. On arrival pt was found to have concern for pulmonary and peripheral edema her bp is elevated. She has been having some vague left jaw and left arm pains. In ED a few days ago and said to have dental pain. echo/rosalba/tele. monitor labs. pt responded well to one dose iv lasix. will give iv iron for her iron def anemia...due to fibroid bleeding. pt now on medication and no vaginal bleeding x 1 month. taking alot of otc nsaids for jaw pain past few days. no obvious gib. Physician Certification 2 Midnight Certification Type: Admission for Inpatient Services Order for Inpatient Services The services are ordered in accordance with Medicare regulations or non- Medicare payer requirements, as applicable. In the case of services not specified as inpatient-only, they are appropriately provided as inpatient services in accordance with the 2-midnight benchmark. Estimated LOS (days): 2 2 days is the estimated time the patient will need to remain in the hospital, assuming treatment plan goals are met and no additional complications. Post-Hospital Plan: Home Amena Briseno Jul 13, 2017 13:47 Milton Aguilera MD Jul 13, 2017 17:49
[2017-07-13] MEDS ORDERED: ACETAMINOPHEN 325 MG TAB PO PRN (15:15)
[2017-07-13] MEDS ORDERED: ONDANSETRON HCL 4 MG/2 ML VIAL IV PRN (15:15)
[2017-07-13] MEDS ORDERED: cloNIDine HCL 0.1 MG TAB PO PRN (16:00)
[2017-07-13] MEDS: ATENOLOL 50 MG TAB PO SCH (16:43)
[2017-07-13 17:04] LABS: % SATURATION IRON PROFILE 2.8 % (20-50); IRON (FE) 13 MCG/DL (50-170); TOTAL IRON BINDING CAPACITY 462 MCG/DL (250-450)
[2017-07-13 17:06] LABS: FERRITIN 6 NG/ML (8-252)
[2017-07-13 17:08] VITALS: BP 189/107; PULSE 67; RESP 18; TEMP 98.7; O2SAT 98
[2017-07-13] MEDS ORDERED: IRON SUCROSE INJ 200 MG in SODIUM CHLORIDE 0.9% INJ 100 ML IV SCH (18:00)
[2017-07-13 19:41] LABS: FREE T4 0.95 NG/DL (0.76-1.46)
[2017-07-13 20:00] VITALS: BP 154/90; PULSE 62; RESP 16; TEMP 98; O2SAT 99
--- NOTE | 2017-07-13 20:10 | EKG ---
Date Performed: 07/13/2017 Time Performed: 08:31:36 PTAGE: 36 years EKG: Sinus rhythm NORMAL ECG PREVIOUS TRACING : 05/08/2017 20.15 Since the previous tracing, no significant change noted DOCTOR: Burt Lainez Interpretating Date/Time 07/13/2017 20:08:20
[2017-07-13 20:45] VITALS: PULSE 84
[2017-07-13] MEDS: diphenhydrAMINE HCL 25 MG CAP PO SCH (23:20)
[2017-07-14] VITALS (9 sets, daily range): BP systolic 138–169; BP diastolic 70–102; PULSE 57–77; RESP 16–18; TEMP 97.6–99.3; O2SAT 96–99
--- NOTE | 2017-07-14 07:35 | RADRPT ---
EXAM DATE/TIME: 07/14/2017 06:45 [facility] COMPARISON: CHEST PA & LAT, July 13, 2017, 8:13. CHEST SINGLE AP, December 18, 2016, 3:17. INDICATIONS : Short of breath, lower extremity edema MEDICAL HISTORY : Hypertension. Congestive heart failure. uterine fibroids SURGICAL HISTORY : Tubal ligation. section. ENCOUNTER: Subsequent ACUITY: 2 days PAIN SCORE: 0/10 LOCATION: Bilateral chest FINDINGS: Portable AP view of the chest demonstrates a normal-sized cardiac silhouette. There is mild atelectas is at the lung bases. No effusion, consolidation, or pneumothorax is identified. Bones and soft tissu es demonstrate no acute finding. CONCLUSION: Improvement in the appearance of the lung bases. Subtle changes the lung bases currently likely repre sent atelectasis. Interstitial process on the prior study has either completely or near completely re solved. Again, this favors edema as the cause. Melvin Corley MD on July 14, 2017 at 7:31 Board Certified Radiologist. This report was verified electronically.
[2017-07-14] MEDS: HYDROCHLOROTHIAZIDE 12.5 MG CAP PO SCH (08:43)
[2017-07-14] MEDS: ATENOLOL 50 MG TAB PO SCH (08:43)
[2017-07-14 09:53] LABS: AUTOMATED NEUTROPHIL # 4.1 TH/MM3 (1.8-7.7); BASOPHIL % 0.5 % (0.0-2.0); EOSINOPHIL % 0.5 % (0.0-4.0); HEMATOCRIT 26.8 % (35.0-46.0); HEMOGLOBIN 8.2 GM/DL (11.6-15.3); LYMPH % 13.1 % (9.0-44.0); LYMPHOCYTE # 0.7 TH/MM3 (1.0-4.8); MEAN CELL VOLUME 75.2 FL (80.0-100.0); MEAN CORPUSCULAR HGB CONC 30.6 % (32.0-36.0); MEAN PLATELET VOLUME 6.8 FL (7.0-11.0); MONO % 11.1 % (0.0-8.0); MONOCYTE # 0.6 TH/MM3 (0-0.9); NEUT % 74.8 % (16.0-70.0); PLATELET COUNT 242 TH/MM3 (150-450); RED BLOOD COUNT 3.56 MIL/MM3 (4.00-5.30); RED CELL DISTRIBUTION WIDTH 19.9 % (11.6-17.2); WHITE BLOOD COUNT 5.5 TH/MM3 (4.0-11.0)
--- NOTE | 2017-07-14 10:17 | HHI.PR ---
Subjective Remarks breathing better edema gone no cp still with some left jaw pains. Objective Vitals heart reg lung cta abd s/nt ext no edema Vital Signs Date Time Temp Pulse Resp B/P (MAP) Pulse Ox O2 Delivery O2 Flow Rate FiO2 07/14/17 08:01 99.3 77 17 169/102 (124) 96 07/14/17 04:00 98.1 75 17 138/70 (92) 99 07/14/17 04:00 64 07/14/17 00:00 70 07/14/17 00:00 97.6 75 17 150/89 (109) 99 07/13/17 20:45 84 07/13/17 20:00 98.0 62 16 154/90 (111) 99 07/13/17 17:08 98.7 67 18 189/107 (134) 98 07/13/17 16:17 07/13/17 12:21 179/105 (129) 07/13/17 11:21 78 18 215/121 (152) 100 Room Air 07/13/17 11:21 100 Nasal Cannula 2.00 07/13/17 11:21 100 Nasal Cannula 2.00 Result Diagram: 07/14/17 0908 07/13/17 0826 Imaging Last Impressions Chest X-Ray 07/13/17 0742 Signed Impressions: Service Date/Time: Thursday, July 13, 2017 08:13 - CONCLUSION: Abnormal chest. Considerations include both inflammatory interstitial edema and congestive failure. This is thought to represent inflammatory process. Correlation suggested to exclude congestive failure.. Adriano Beyer MD FACR A/P Problem List: (1) SOB (shortness of breath) on exertion ICD Codes: R06.02 - Shortness of breath Status: Acute Plan: Exertional dyspnea LE edema - Pt is a 36 y/o AAF with HTN and chronic microcytic anemia reportedly related to DUB/uterine fibroids. - Pt presented to the ED at [facility] [place] 07[place]13[place]17 with complaints of SOB x 4 days, worse when trying to lie down flat and worse with exertion. She also describes some left jaw/?tooth pain that began prior to her SOB symptoms and there is questionable radiation of this pain down the left arm. She denies any chest pain, cough, fevers/chills, palpitations, diaphoresis, nausea/vomiting. She also reported LE edema x 4 days. - CXR in the ED was abnormal indicating possible inflammatory interstitial edema and/or congestive failure. - Pt was given IV Lasix in the ED and her LE edema and sob improved after diuresis - Its not very clear if these above symptoms are cardiac in origin. She doesn't have any obvious oral infection/tooth abscess that is causing her pain, this could be an anginal equivalent. Her BP is quite high in the ED but she has reportedly not been on her meds the last 3 days. 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 Microcytic anemia Hx of DUB/uterine fibroids - She reports that she was previously given Tranexamic acid in early May 2017 and has not had a period since that time - She was on iron supplements until 2 weeks ago, she stopped because it was making her nauseated. - iron def on labs noted - We will given IV iron during admission - Monitor labs - Check beta HCG - Pt follows with Dr. Sandy for OBGyn HTN - Pt takes HCTZ and Atenolol but has been out of medicine for the last 3 days because she hasn't picked it up from the pharmacy. - She reports that her BP usually runs 130-140 systolic when she is on her medications - Resume her home meds - Clonidine PRN DVT prophylaxis with SCDs (2) HTN (hypertension) ICD Codes: I10 - Essential (primary) hypertension Status: Chronic (3) Anemia ICD Codes: D64.9 - Anemia, unspecified Status: Chronic Milton Aguilera MD Jul 14, 2017 10:17
[2017-07-14 10:20] LABS: BICARBONATE 23.2 MEQ/L (21.0-32.0); CALCIUM 8.4 MG/DL (8.5-10.1); CREATININE 1.06 MG/DL (0.50-1.00); MAGNESIUM 2.1 MG/DL (1.5-2.5)
[2017-07-14] MEDS ORDERED: IRON SUCROSE INJ 200 MG in SODIUM CHLORIDE 0.9% INJ 100 ML IV ONE (11:00)
[2017-07-14] MEDS ORDERED: REGADENOSON INJ 0.4 MG/5 ML SYR ONE (11:02)
[2017-07-14] MEDS ORDERED: AMINOPHYLLINE INJ 500 MG/20 ML VIAL ONE (11:59)
--- NOTE | 2017-07-14 13:34 | RADRPT ---
EXAM DATE/TIME: 07/14/2017 10:45 [facility] COMPARISON: CHEST SINGLE AP, July 14, 2017, 6:45. INDICATIONS : Mid chest pressure with shortness of breath for four days. Angina. DOSE: 25.7 mCi Tc99m Myoview at stress. 8.1 mCi Tc99m Myoview at rest. 0.4 mg Lexiscan STRESS SYMPTOMS: Short of breath. MEDICATIONS: 1.) 100 mg Aminophylline EJECTION FRACTION: 53% MEDICAL HISTORY : Hypertension. Congestive heart failure. SURGICAL HISTORY : Tubal ligation. section. ENCOUNTER: Initial ACUITY: 4 - 6 days PAIN SCALE: 2/10 LOCATION: Midsternal chest TECHNIQUE: The patient underwent pharmacologic stress with infusion of prescribed dose. Continuous ECG tracing was monitored during stress. Gated SPECT imaging was performed after stress and conventional SPECT i maging was performed at rest. The examination was performed on a SPECT/CT scanner, both attenuation and non-corrected datasets were reviewed. FINDINGS: DISTRIBUTION: The maximum perfused segment at stress is in the posterobasal wall. PERFUSION STUDY: The pattern of perfusion at stress is within normal limits. GATED STUDY: Borderline left ventricular chamber volume. Intact wall motion. CONCLUSION: No ischemia. Satisfactory LV function. RISK CATEGORY: Low (<1% Annual Mortality Rate) Melvin Tierney MD on July 14, 2017 at 13:29 Board Certified Radiologist. This report was verified electronically.
--- NOTE | 2017-07-14 15:10 | ECHRPT ---
Indication: Heart Failure CONCLUSIONS The left ventricular systolic function is normal with an estimated ejection fraction in the range of 60-65%. Moderately dilated left ventricle. Wall thickness is measured at the upper limits of normal. The left atrial size is tojxtjpz-xs-ebpqetwf dilated. Mild thickening of the mitral valve leaflets. severe mitral valve regurgitation. There is mild tricuspid valve regurgitation. The estimated pulmonary arterial pressure is 38.1 mmHg. Mild pulmonary valve regurgitation. BP: 138 / 70 HR: 75 Rhythm: Sinus MEASUREMENTS (Male / Female) Normal Values Technical Quality:Fair 2D ECHO LV Diastolic Diameter PLAX 5.9 cm 4.2 - 5.9 / 3.9 - 5.3 cm LV Systolic Diameter PLAX 4.1 cm IVS Diastolic Thickness 0.9 cm 0.6 - 1.0 / 0.6 - 0.9 cm LVPW Diastolic Thickness 1.0 cm 0.6 - 1.0 / 0.6 - 0.9 cm LV Relative Wall Thickness 0.3 RV Internal Dim ED PLAX 3.5 cm LVOT Diameter 2.0 cm LA Systolic Diameter LX 5.0 cm 3.0 - 4.0 / 2.7 - 3.8 cm LA Volume Index 62.3 cm/m 16 - 28 cm/m M-MODE Aortic Root Diameter MM 2.6 cm LA Systolic Diameter MM 5.1 cm LA Ao Ratio MM 2.0 AV Cusp Separation MM 1.9 cm DOPPLER AV Peak Velocity 176.0 cm/s AV Peak Gradient 12.4 mmHg LVOT Peak Velocity 107.0 cm/s LVOT Peak Gradient 4.6 mmHg AV Area Cont Eq pk 1.9 cm MV Peak Velocity 152.0 cm/s MV Peak Gradient 9.2 mmHg MV Mean Velocity 78.7 cm/s MV Mean Gradient 3.0 mmHg MV Area PHT 2.5 cm Mitral E Point Velocity 160.0 cm/s Mitral A Point Velocity 77.1 cm/s Mitral E to A Ratio 2.1 LV E' Lateral Velocity 8.4 cm/s Mitral E to LV E' Lateral Ratio 19.1 LV E' Septal Velocity 8.6 cm/s Mitral E to LV E' Septal Ratio 18.6 TR Peak Velocity 265.0 cm/s TR Peak Gradient 28.1 mmHg Right Atrial Pressure 10.0 mmHg Pulmonary Artery Systolic Pressu 38.1 mmHg Right Ventricular Systolic Press 38.1 mmHg FINDINGS LEFT VENTRICLE Moderately dilated left ventricle. Wall thickness is measured at the upper limits of normal. The left ventricular systolic function is normal with an estimated ejection fraction in the range of 60-65%. RIGHT VENTRICLE Normal right ventricular size and systolic function. LEFT ATRIUM The left atrial size is rtuqtmqa-sb-kqirahmi dilated. RIGHT ATRIUM The right atrial size is normal. ATRIAL SEPTUM Normal atrial septal thickness without atrial level shunting by limited color doppler interrogation. AORTA The aortic root and proximal ascending aorta are normal in size on limited imaging. MITRAL VALVE Mild thickening of the mitral valve leaflets. Woxazugd-nb-[id number] mitral valve regurgitation. TRICUSPID VALVE Structurally normal tricuspid valve. There is mild tricuspid valve regurgitation. The estimated pulmonary arterial pressure is 38.1 mmHg. PULMONARY VALVE Mild pulmonary valve regurgitation. VESSELS The inferior vena cava is normal in size. PERICARDIUM No pericardial effusion. Evens Chavez MD, FACC, [facility] [place] (Electronically Signed) Final Date:14 July 2017 15:09
[2017-07-14] MEDS ORDERED: ACETAMINOPHEN/HYDROcodone 325 MG/5 MG TAB PO PRN (16:15)
[2017-07-14] MEDS: diphenhydrAMINE HCL 25 MG CAP PO SCH (20:54)
[2017-07-15] VITALS: PULSE 64
[2017-07-15 04:00] VITALS: BP 132/77; PULSE 53; PULSE 56; RESP 18; TEMP 97.9; O2SAT 99
--- NOTE | 2017-07-15 07:39 | PD.CONS ---
HPI Consult Requested By Primary Care Physician No Primary Care Physician History of Present Illness 36-year-old female with a past medical history of HTN, iron deficiency anemia secondary to dysfunctional uterine bleeding who presented with 4 days of shortness of breath, orthopnea, and lower extremity swelling. The patient received IV Lasix 40 mg 1, reports good diuresis, and symptoms improved. She had a Lexiscan which showed no ischemia. Her echocardiogram showed normal EF 60 -65% with severe mitral valve regurgitation. The patient denies any history of heart disease, childhood illnesses, rheumatic fever. She reports a history of chronic palpitations whenever she gets stressed or upset, unchanged and telemetry unremarkable overnight. Recommended FREDERIC today, patient currently agreeable and all questions answered. (Medhat Glez) Consult Requested By FREDERIC - normal LV function moderate MR mod LA enlargement add low dose diuretic DC planning TTE in 6 mo (Tae Russell MD) Review of Systems Negative except as stated in the HPI (Medhat Glez) Past Family Social History Allergies: Coded Allergies: *MDRO Multi-Drug Resistant Organism (Verified Adverse Reaction, Unknown, ) MRSA Wound Arm 10/2016 Past Medical History Hypertension Uterine fibroids with dysfunctional uterine bleeding and microcytic iron deficiency anemia Past Surgical History None Reported Medications Reported Meds & Active Scripts Active Ibuprofen 800 Mg Tab 800 Mg PO Q8H PRN Clindamycin (Clindamycin HCl) 300 Mg Cap 300 Mg PO TID Ferrous Sulfate 325 Mg (65 Mg Iron) Tablet 325 Mg PO TIDPC If possible, take it with Iroquois juice. Hydrochlorothiazide 12.5 Mg Tab 12.5 Mg PO DAILY Reported Atenolol 50 Mg Tab 50 Mg PO DAILY Active Ordered Medications Current Medications Medications (Trade) Dose Ordered Sig/Star Route Start Time Stop Time Status Last Admin (Nitrostat Sl) 0.4 mg Q5M PRN SL 07/13/17 11:30 07/13/17 12:04 (Tylenol) 650 mg Q4H PRN PO 07/13/17 15:15 07/13/17 16:44 (Zofran Inj) 4 mg Q6H PRN IV 07/13/17 15:15 (Tenormin) 50 mg DAILY PO 07/13/17 16:00 07/14/17 08:43 (Microzide) 12.5 mg DAILY PO 07/14/17 09:00 07/14/17 08:43 (Catapres) 0.1 mg Q6H PRN PO 07/13/17 16:00 (Benadryl) 25 mg HS PO 07/13/17 22:18 07/14/17 20:54 (Satin 5-325 Mg) 1 tab Q6H PRN PO 07/14/17 16:15 07/14/17 16:33 Family History Denies any family history of heart disease Social History Pt smokes 1ppd x 18 years. Occasional social alcohol use Denies any illicit drug use (Medhat Glez) Physical Exam Vital Signs Vital Signs Date Time Temp Pulse Resp B/P (MAP) Pulse Ox O2 Delivery O2 Flow Rate FiO2 07/15/17 04:00 97.9 56 18 132/77 (95) 99 07/15/17 04:00 53 07/15/17 00:00 64 07/14/17 23:48 98.1 57 16 146/86 (106) 99 07/14/17 20:00 68 07/14/17 20:00 99.2 63 17 152/96 (114) 96 07/14/17 17:55 98.6 62 18 157/102 (120) 99 07/14/17 16:18 98.9 65 17 151/87 (108) 97 07/14/17 16:00 63 07/14/17 08:01 99.3 77 17 169/102 (124) 96 07/14/17 08:00 69 Physical Exam GENERAL: Well-developed well-nourished. In no acute distress. NECK: No carotid bruits. No JVD. CARDIOVASCULAR: Regular rate and rhythm. 3/6 systolic murmur appreciated. RESPIRATORY: No accessory muscle use. Clear to auscultation. Breath sounds equal bilaterally. MUSCULOSKELETAL: No clubbing or cyanosis. No edema. NEUROLOGICAL: Awake and alert. Normal speech. Laboratory Laboratory Tests Test 07/14/17 09:08 White Blood Count 5.5 Red Blood Count 3.56 Hemoglobin 8.2 Hematocrit 26.8 Mean Corpuscular Volume 75.2 Mean Corpuscular Hemoglobin 23.0 Mean Corpuscular Hemoglobin Concent 30.6 Red Cell Distribution Width 19.9 Platelet Count 242 Mean Platelet Volume 6.8 Neutrophils (%) (Auto) 74.8 Lymphocytes (%) (Auto) 13.1 Monocytes (%) (Auto) 11.1 Eosinophils (%) (Auto) 0.5 Basophils (%) (Auto) 0.5 Neutrophils # (Auto) 4.1 Lymphocytes # (Auto) 0.7 Monocytes # (Auto) 0.6 Eosinophils # (Auto) 0.0 Basophils # (Auto) 0.0 CBC Comment DIFF FINAL Differential Comment Blood Urea Nitrogen 10 Creatinine 1.06 Random Glucose 92 Calcium Level 8.4 Magnesium Level 2.1 Sodium Level 139 Potassium Level 3.7 Chloride Level 107 Carbon Dioxide Level 23.2 Anion Gap 9 Estimat Glomerular Filtration Rate 72 Date/Time Source Procedure Growth Status 07/13/17 08:36 Blood Peripheral Aerobic Blood Culture - Preliminary NO GROWTH IN 1 DAY Resulted 07/13/17 08:36 Blood Peripheral Anaerobic Blood Culture - Preliminary NO GROWTH IN 1 DAY Resulted (Medhat Glez) Result Diagram: 07/14/17 0908 07/14/17 0908 Imaging Last Impressions Myocardial Perfusion Scan Nuc Med 07/14/17599 Signed Impressions: Service Date/Time: June 10:45 - CONCLUSION: No ischemia. Satisfactory LV function. RISK CATEGORY: Low (<1%% Annual Mortality Rate) Melvin Tierney MD Chest X-Ray 07/14/17599 Signed Impressions: Service Date/Time: June 06:45 - CONCLUSION: Improvement in the appearance of the lung bases. Subtle changes the lung bases currently likely represent atelectasis. Interstitial process on the prior study has either completely or near completely resolved. Again, this favors edema as the cause. Melvin Corley MD (Medhat Glez) Assessment and Plan Assessment and Plan 36-year-old female with a past medical history of HTN, iron deficiency anemia secondary to dysfunctional uterine bleeding who presented with 4 days of shortness of breath, orthopnea, and lower extremity swelling. Symptoms improved with diuresis. Echocardiogram shows severe mitral regurgitation. Possible severe mitral regurgitation with heart failure with preserved ejection fraction: N.p.o. for now and FREDERIC today. Iron deficiency anemia: Hemoglobin is stable. Getting IV iron replacement per primary team. Monitor. (Medhat Glez) Medhat Glez Jul 15, 2017 07:39 Tae Russell MD Jul 15, 2017 10:27
[2017-07-15 08:00] VITALS: PULSE 56
[2017-07-15 08:04] VITALS: BP 142/84; PULSE 53; RESP 18; TEMP 98.9; O2SAT 100
[2017-07-15] MEDS: ATENOLOL 50 MG TAB PO SCH (09:00)
[2017-07-15] MEDS ORDERED: MISCELLANEOUS NURSING INFORMATION XX PRN (10:30)
[2017-07-15 10:54] VITALS: BP 150/81; PULSE 57
--- NOTE | 2017-07-15 11:30 | HHI.PR ---
Subjective Remarks doing well. no new complaints Objective Vitals heart reg/ systolic [facility] lung cta abd s/nt\ ext no edema Vital Signs Date Time Temp Pulse Resp B/P (MAP) Pulse Ox O2 Delivery O2 Flow Rate FiO2 07/15/17 10:54 57 150/81 (104) 07/15/17 08:04 98.9 53 18 142/84 (103) 100 07/15/17 08:00 56 07/15/17 04:00 97.9 56 18 132/77 (95) 99 07/15/17 04:00 53 07/15/17 00:00 64 07/14/17 23:48 98.1 57 16 146/86 (106) 99 07/14/17 20:00 68 07/14/17 20:00 99.2 63 17 152/96 (114) 96 07/14/17 17:55 98.6 62 18 157/102 (120) 99 07/14/17 16:18 98.9 65 17 151/87 (108) 97 07/14/17 16:00 63 Result Diagram: 07/14/17 0908 07/14/17 0908 Imaging Last Impressions Chest X-Ray 07/13/17 0742 Signed Impressions: Service Date/Time: Thursday, July 13, 2017 08:13 - CONCLUSION: Abnormal chest. Considerations include both inflammatory interstitial edema and congestive failure. This is thought to represent inflammatory process. Correlation suggested to exclude congestive failure.. Adriano Beyer MD FACR A/P Problem List: (1) Mitral valve regurgitation ICD Codes: I34.0 - Nonrheumatic mitral (valve) insufficiency Status: Acute Plan: 1. acute valvular heart failure. mod mitral valve regurg 2. htn. 3. uterine fibroid. iron def anemia 4. depression.anxiety discussed with dr Russell and pcp dr Juarez will get bmp next week with pcp and refer for counseling will f/u cardiology for the mod MV regurg. s/p FREDERIC today. cont [id number] and kcl for now. cont bb hold hctz. s/p iv iron here and will take at least daily at home po iron. (2) HTN (hypertension) ICD Codes: I10 - Essential (primary) hypertension Status: Chronic (3) Uterine fibroid ICD Codes: D25.9 - Leiomyoma of uterus, unspecified Status: Chronic (4) Iron deficiency anemia ICD Codes: D50.9 - Iron deficiency anemia, unspecified Status: Chronic Milton Aguilera MD Jul 15, 2017 11:30
[2017-07-15] MEDS ORDERED: POTA10TA2 PO (11:31)
[2017-07-15] MEDS ORDERED: FURO1TAB62 PO (11:31)
--- NOTE | 2017-07-15 11:32 | HHI.DCPOC ---
Discharge Care Plan Diagnosis: (1) Mitral valve regurgitation (2) Iron deficiency anemia (3) Uterine fibroid Goals to Promote Your Health * To prevent worsening of your condition and complications * To maintain your health at the optimal level Directions to Meet Your Goals Take your medications as prescribed Follow your dietary instruction Follow activity as directed Keep your appointments as scheduled Take your immunizations and boosters as scheduled If your symptoms worsen call your PCP, if no PCP go to Urgent Care Center or Emergency Room Smoking is Dangerous to Your Health. Avoid second hand smoke Call the 24-hour hour crisis hotline for domestic abuse at Milton Aguilera MD Jul 15, 2017 11:32
[2017-07-15 12:05] VITALS: BP 145/96; PULSE 58; RESP 17; TEMP 98.7; O2SAT 96
[2017-07-15] MEDS: HYDROCHLOROTHIAZIDE 12.5 MG CAP PO SCH (12:05)
--- NOTE | 2017-07-18 12:58 | ECHRPT ---
Indication: Mitral Regurgitation CONCLUSIONS Normal left ventricular size and wall thickness. The left ventricular systolic function is normal wi th an estimated ejection fraction in the range of 60-65%. Left ventricular diastolic function parameters a re normal. Mild thickening of the mitral valve leaflets. Moderate mitral valve regurgitation. BP: / HR: Rhythm: Sinus Technical Quality:Good Medications Complications Proc. Components FINDINGS LEFT VENTRICLE Normal left ventricular size and wall thickness. The left ventricular systolic function is normal wi th an estimated ejection fraction in the range of 60-65%. Left ventricular diastolic function parameters a re normal. RIGHT VENTRICLE Normal right ventricular size and systolic function. LEFT ATRIUM The left atrial size is normal. RIGHT ATRIUM The right atrial size is normal. ATRIAL APPENDAGES Normal left atrial appendage size with no evidence of thrombus formation. ATRIAL SEPTUM Normal atrial septal thickness without atrial level shunting by limited color doppler interrogation. AORTA The aortic root and proximal ascending aorta are normal in size on limited imaging. MITRAL VALVE Mild thickening of the mitral valve leaflets. Moderate mitral valve regurgitation. AORTIC VALVE Trileaflet aortic valve. No aortic valve stenosis or regurgitation. TRICUSPID VALVE Structurally normal tricuspid valve. No tricuspid valve stenosis or regurgitation. VESSELS The inferior vena cava is normal in size. PULMONARY VALVE The pulmonary valve is not well visualized. PERICADIUM No pericardial effusion. Tae Russell MD, FACC (Electronically Signed) Final Date:18 July 2017 12:58
== END 2017-07-15 13:48 | disposition home or self-care (01) ==
LOC: NEPD 07:23 → INTOOBSV 12:24 → NEDA 12:24 → N04A 16:05
PROVIDERS: ADMIT Hospitalist; ATTEND Hospitalist
DX: I50.9 Heart failure, unspecified (principal); I34.0 Nonrheumatic mitral (valve) insufficiency; D50.9 Iron deficiency anemia, unspecified; D25.9 Leiomyoma of uterus, unspecified; I11.0 Hypertensive heart disease with heart failure; F41.8 Other specified anxiety disorders; F17.200 Nicotine dependence, unspecified, uncomplicated; K59.00 Constipation, unspecified
CPT/HCPCS: 01922; 71045; 71046; 78452; 80048; 82550; 82552; 82728; 83540; 83550; 83735; 83880; 84439; 84443; 84484; 84702; 85025; 87040; 93005; 93017; 93306; 93312; 93320; 93325; 96374; 99285; A9502; G0378; J0280; J1756; J1940; J2785

== ENCOUNTER 2017-11-05 21:41 | Observation (INO) ==
[2017-11-06] MEDS ORDERED: Ketorolac Inj 30 MG/ML (IVP) Vial IV.PUSH ONE (03:28)
--- NOTE | 2017-11-06 03:39 | ED ---
HPI General Chief Complaint: Chest Pain Stated Complaint: Doc Sent/Chest Pain Time Seen by Provider: 11/06/17 02:32 History of Present Illness HPI narrative: This is a 36-year-old woman presents emerged from referred from her primary doctor for low hemoglobin. She states that she is a history of menorrhagia and has required transfusion 5-10 times in the past. She states she had routine blood work done revealed hemoglobin is 6. She also has a history of CHF, takes Lasix 20 mg daily. She states is related to a valve problem was recently diagnosed. She takes iron 1 tablet daily. She endorses a little bit of dyspnea on exertion but states is been unchanged recently. No other complaints. Complete Quality Measures for STEMI Alert Patients Related Data Home Medications Medication Instructions Recorded Confirmed atenolol 50 mg PO DAILY 11/06/17 11/06/17 cholecalciferol (vitamin D3) See Label Instructions .ROUTE 11/06/17 11/06/17 [Vitamin D3] .COMPLEX furosemide [Lasix] 20 mg PO DAILY 11/06/17 11/06/17 potassium chloride 10 meq PO DAILY 11/06/17 11/06/17 Allergies Allergy/AdvReac Type Severity Reaction Status Date / Time No Known Allergies Allergy Verified 11/05/17 21:50 Review of Systems ROS Unobtainable All other systems reviewed negative except as stated in HPI [facility] Medical History Medical History HTN (hypertension) (Acute) Iron deficiency anemia due to chronic blood loss (Acute) Menorrhagia (Acute) Mitral regurgitation (Acute) Surgical History Surgical History No history of previous surgery (Acute) Social History Social History Recent Travel in [facility] within the Last 8 Weeks: No Recent Out of Country Travel within the Last 8 Weeks: No Exam Narrative Exam Narrative: GENERAL: Is a 36-year-old woman, no acute distress. SKIN: Focused skin assessment warm/dry. HEAD: Atraumatic. Normocephalic. EYES: Pupils equal and round. No scleral icterus. No injection or drainage. ENT: No nasal bleeding or discharge. Mucous membranes pink and moist. NECK: Trachea midline. No JVD. CARDIOVASCULAR: Regular rate and rhythm. No murmur appreciated. RESPIRATORY: No accessory muscle use. Clear to auscultation. Breath sounds equal bilaterally. GASTROINTESTINAL: Abdomen soft, non-tender, nondistended. Hepatic and splenic margins not palpable. MUSCULOSKELETAL: No obvious deformities. No clubbing. No cyanosis. No edema. NEUROLOGICAL: Awake and alert. No obvious cranial nerve deficits. Motor grossly within normal limits. Normal speech. PSYCHIATRIC: Appropriate mood and affect; insight and judgment normal. Course Initial Documented Vital Signs Temperature 98.6 F 11/05/17 21:48 Pulse Rate 87 11/05/17 21:48 Respiratory Rate 18 11/05/17 21:48 Blood Pressure 163/88 H 11/05/17 21:48 Pulse Oximetry 100 11/05/17 21:48 Last Documented Vital Signs Temperature 98.6 F 11/05/17 21:48 Pulse Rate 78 11/06/17 03:29 Respiratory Rate 16 11/06/17 03:29 Blood Pressure 149/96 H 11/06/17 03:29 Pulse Oximetry 100 11/06/17 03:29 Medical Decision Making MDM Narrative Medical decision making narrative: 36-year-old woman, history of chronic anemia related menorrhagia, here same. Also history of CHF. She reports is related to valve disease. She had a FREDERIC done in June of this year that showed moderate mitral regurg and normal EF with moderate LA enlargement. Lab Data Result diagrams: 11/06/17 03:30 11/06/17 03:30 Lab Results 11/06/17 11/06/17 11/06/17 Range/Units 03:30 03:30 04:14 WBC 6.4 (4.0-11.0) th/mm3 RBC 3.28 L (4.00-5.30) mil/mm3 Hgb 5.6 L* (11.6-15.3) gm/dL Hct 19.9 L* (35.0-46.0) % MCV 60.7 L (80.0-100.0) fL MCH 17.2 L (27.0-34.0) pg MCHC 28.4 L (32.0-36.0) % RDW 21.4 H (11.6-17.2) % Plt Count 412 (150-450) th/mm3 MPV 7.5 (7.0-11.0) fL Prelim Diff (Auto) [employer] Neut % (Auto) 60.6 (16.0-70.0) % Lymph % (Auto) 25.4 (9.0-44.0) % Citrus % (Auto) 12.2 H (0.0-8.0) % Eos % (Auto) 0.6 (0.0-4.0) % Baso % (Auto) 1.2 (0.0-2.0) % Neut # (Auto) 3.9 (1.8-7.7) th/mm3 Lymph # (Auto) 1.6 (1.0-4.8) th/mm3 Citrus # (Auto) 0.8 (0.0-0.9) th/mm3 Eos # (Auto) 0.0 (0.0-0.4) th/mm3 Baso # (Auto) 0.1 (0.0-0.2) th/mm3 WBC Differential . Differential Comment Auto diff final Sodium 142 (136-145) meq/L Potassium 3.5 (3.5-5.1) meq/L Chloride 110 H (98-107) meq/L Carbon Dioxide 24.6 (21.0-32.0) meq/L Anion Gap 7 (5-15) meq/L BUN 17 (7-18) mg/dL Creatinine 1.00 (0.50-1.00) mg/dL Estimated GFR 77 L (>89) mL/min Random Glucose 102 (74-106) mg/dL Calcium 8.1 L (8.5-10.1) mg/dL Total Bilirubin 0.1 L (0.2-1.0) mg/dL AST 22 (15-37) U/L ALT 28 (10-53) U/L Alkaline Phosphatase 52 (45-117) U/L Total Protein 6.7 (6.4-8.2) g/dL Albumin 3.6 (3.4-5.0) g/dL MTS Gel Crossmatch See Detail ECG Data Attestation: I personally reviewed and interpreted this ECG as follows: Interpretation: Normal sinus rhythm at a rate of 68, normal axis, normal ischemia. Discharge Plan Discharge Disposition Patient Disposition: 30 Still Patient Physicians Team ED Provider: Tae Mosley Rxs /Orders / Referrals /Forms Prescriptions: No Action potassium chloride 10 mEq Capsule, Extended Release 10 meq PO DAILY RF: 0 furosemide [Lasix] 20 mg Tablet 20 mg PO DAILY RF: 0 atenolol 50 mg Tablet 50 mg PO DAILY RF: 0 cholecalciferol (vitamin D3) [Vitamin D3] 1,000 unit Capsule See Label Instructions .ROUTE .COMPLEX RF: 0 Discharge Instructions Patient Printed Instructions: Chest Pain (ED) Discharge Interventions Interventions: Vital Signs Last Done: 11/06/17 03:29 Status ED Status: With Doctor
[2017-11-06 03:58] LABS: Baso # (Auto) 0.1 th/mm3 (0.0-0.2); Baso % (Auto) 1.2 % (0.0-2.0); Eos % (Auto) 0.6 % (0.0-4.0); Lymph # (Auto) 1.6 th/mm3 (1.0-4.8); Lymph % (Auto) 25.4 % (9.0-44.0); Mean Corpuscular Hemoglobin 17.2 pg (27.0-34.0); Mean Corpuscular Volume 60.7 fL (80.0-100.0); Mean Platelet Volume 7.5 fL (7.0-11.0); Mono # (Auto) 0.8 th/mm3 (0.0-0.9); Mono % (Auto) 12.2 % (0.0-8.0); Neut # (Auto) 3.9 th/mm3 (1.8-7.7); Neut % (Auto) 60.6 % (16.0-70.0); Platelet Count 412 th/mm3 (150-450); Red Blood Count 3.28 mil/mm3 (4.00-5.30); Red Cell Distribution Width 21.4 % (11.6-17.2); White Blood Count 6.4 th/mm3 (4.0-11.0)
[2017-11-06 04:08] LABS: Mean Corpuscular HGB Conc 28.4 % (32.0-36.0)
[2017-11-06 04:11] LABS: Hematocrit 19.9 % (35.0-46.0); Hemoglobin 5.6 gm/dL (11.6-15.3)
[2017-11-06 04:13] LABS: Alanine Aminotransferase 28 U/L (10-53); Albumin 3.6 g/dL (3.4-5.0); Anion Gap 7 meq/L (5-15); Aspartate Aminotransferase 22 U/L (15-37); Blood Urea Nitrogen 17 mg/dL (7-18); Calcium 8.1 mg/dL (8.5-10.1); Carbon Dioxide 24.6 meq/L (21.0-32.0); Chloride 110 meq/L (98-107); Glomerular Filtration Rate 77 mL/min (>89); Glucose,Random 102 mg/dL (74-106); Potassium 3.5 meq/L (3.5-5.1); Sodium 142 meq/L (136-145)
[2017-11-06 04:15] LABS: Alkaline Phosphatase 52 U/L (45-117); Total Protein 6.7 g/dL (6.4-8.2)
[2017-11-06] MEDS ORDERED: Acetaminophen 500 MG Tablet PO ONE (04:53)
[2017-11-06] MEDS ORDERED: Sodium Chlor 0.9% Inj 250 ML IV.SIG SCH (05:00)
[2017-11-06] MEDS ORDERED: Acetaminophen 325 MG Tablet PO PRN (08:16)
--- NOTE | 2017-11-06 08:21 | P.HPIM ---
History of Present Illness Primary Care Physician: Dr. Milan Chief Complaint: weakness, chest pain History of Present Illness: Ms. Kim is a pleasant 36 y/o AAF with HTN, valvular heart failure, mitral valve regurgitation, and chronic microcytic anemia reportedly related to DUB/ uterine fibroids. Pt presented to the ED at [facility] [place] on 11/06/17 after she was seen as an outpt at [facility] on 11/01 with complaints generalized fatigue and weakness as well as a tooth ache. She was sent for blood work on 11/04 which noted her Hgb had decreased to 6.2 and Hct 25.6. She reports that her menstrual periods have been occurring more frequently the last few months. She states that she has been having heavy menstrual periods every 2-3 weeks which typically last around 7 days. She is currently on her menstrual period which began around 6 days ago. She reports going through at least 4 overnight pads per day. She states that yesterday she started having a constant chest discomfort in the lower right side of her chest wall which she had tried taking Tylenol #3 for yesterday but it did not seem to help. The chest pain is worse with taking a deep breath or with palpation of the chest wall. She was contacted about her previous labs results and encouraged to go to the ED for evaluation. In the ED her labs revealed Hgb 5.6/Hct 19.9, MCV 60. She is being transfused with 4 units PRBCs and is receiving the first unit now. She denies any SOB, palpitations, cough, fevers/chills, diaphoresis, nausea/vomiting. She also reported some intermittent LE edema for the past few weeks. She reports that she has been compliant with her medications. She takes Atenolol 50mg po daily and Lasix 20mg daily. When she was seen at urgent care this past week she also complained of a left sided toothache. She was prescribed Augmentin BID x 10 days. The pain seemed to occur more with cold food items but doesn't seem to always hurt with chewing food. Her [facility] PCP is Dr. Milan. She has a followup appt scheduled with Dr. Russell on 11/09/17. Past Medical History HTN Valvular heart failure Mitral valve regurgitation Uterine fibroids Microcytic anemia, reportedly related to DUB FREDERIC (07/15/17) --> Estimated ejection fraction in the range of 60-65%. Left ventricular diastolic function parameters are normal. Mild thickening of the mitral valve leaflets. Moderate mitral valve regurgitation Myocardial Perfusion Scan (07/13/17) --> No ischemia. Satisfactory LV function Past Surgical History None reported Family History Denies any known family hx of CAD or DE Social History Pt smokes 1ppd x 18 years. Occasional social alcohol use Denies any illicit drug use - Diagnosis (1) Microcytic hypochromic anemia (2) DUB (dysfunctional uterine bleeding) (3) Chest wall pain (4) HTN (hypertension) (5) Mitral valve regurgitation Review of Systems All other systems reviewed negative except as stated in HPI Constitutional: Reports fatigue, Reports lack of energy, Reports weakness, Denies chills, Denies fever(s) Eyes: Denies change in vision, Denies loss of vision Ears, Nose, Mouth, and Throat: Reports dental pain, Denies headache(s), Denies hearing loss, Denies sore throat Cardiovascular: Reports chest pain, Reports chest pain at rest, Reports chest pain with activity, Reports leg swelling, Denies excessive sweating, Denies fast heart rate, Denies generalized swelling, Denies lightheadedness, Denies radiating jaw, neck or arm pain, Denies shortness of breath, Denies shortness of breath with activity, Denies shortness of breath when lying down Respiratory: Denies cough, Denies shortness of breath, Denies shortness of breath with activity Gastrointestinal: Denies abdominal pain, Denies bloating, Denies constipation, Denies loose stools, Denies nausea, Denies vomiting Genitourinary: Reports abnormal periods, Reports abnormal vaginal bleeding, Reports heavy periods, Denies urinary incontinence, Denies urinary urgency Musculoskeletal: Denies back pain, Denies joint pain, Denies muscle weakness, Denies neck pain Skin/Breast: Denies rash, Denies wounds Neurologic: Denies dizziness, Denies fainting, Denies frequent falls, Denies headache(s), Denies localized weakness, Denies sensory deficit, Denies tingling/ numbness/burning sensations Psychiatric: Denies anxiety PMF - History History Provided By: Patient - Medical History Medical History: Medical History (Last Reviewed 11/09/17 @ 09:45 by Arpit Marcial) delivery delivered HTN (hypertension) Iron deficiency anemia due to chronic blood loss Menorrhagia Mitral regurgitation - Surgical History Surgical History: Surgical History (Last Reviewed 11/09/17 @ 09:45 by Arpit Marcial) No history of previous surgery - Travel History Recent Travel in the [place] Within the Last 8 Weeks: No Recent Travel Out of the Country Within the Last 8 Weeks: No Medications and Allergies Allergies Allergy/AdvReac Type Severity Reaction Status Date / Time No Known Allergies Allergy Verified 01/05/18 17:49 Home Medications Medication Instructions Recorded Confirmed Type atenolol 50 mg PO DAILY 11/06/17 01/05/18 History cholecalciferol (vitamin D3) See Label Instructions .ROUTE 11/06/17 01/05/18 History [Vitamin D3] .COMPLEX furosemide [Lasix] 20 mg PO DAILY 11/06/17 01/05/18 History potassium chloride 10 meq PO DAILY 11/06/17 01/05/18 History Active Medications: Active Medications Acetaminophen (Tylenol) 650 mg PO Q4H PRN PRN Reason: Temp > 100.4 Al Hydroxide/Mg Hydroxide (Milk Of Jayride.comyari Liq) 30 ml PO Q12H PRN PRN Reason: Mild Constipation Furosemide (Lasix Inj) 20 mg IV.PUSH ONCE PRN PRN Reason: Transfusion Last Admin: 11/06/17 07:12 Dose: 20 mg Sodium Chloride (Ns Inj) 250 mls @ 15 mls/hr IV.SIG ONCE GALILEO Stop: 11/06/17 21:39 Last Admin: 11/06/17 07:12 Dose: 15 mls/hr Ondansetron HCl (Zofran Inj) 4 mg IV.PUSH Q6H PRN PRN Reason: NAUSEA OR VOMITING Senna/Docusate Sodium (Kamilah-Colace) 1 tab PO BID GALILEO Temazepam (Restoril) 15 mg PO HS PRN PRN Reason: INSOMNIA Exam Vital signs: Vital Signs 11/05/17 21:48 11/06/17 01:03 11/06/17 03:29 Temperature 98.6 F Pulse Rate 87 82 78 Respiratory Rate 18 16 16 Blood Pressure 163/88 H 171/84 H 149/96 H Pulse Oximetry 100 100 100 11/06/17 06:17 11/06/17 06:35 11/06/17 07:36 Temperature 98.5 F 98.7 F Pulse Rate 92 H 65 89 Respiratory Rate 16 16 16 Blood Pressure 119/65 120/64 119/69 Pulse Oximetry 100 99 Intake & Output 11/05/17 11/06/17 11/06/17 18:59 06:59 18:59 Intake Total 0 / 0 Balance 0 / 0 Weight 78 kg Intake: Intake (Blood Product) Amt 0 / 0 Rbc As-3 Leukoreduced Unit 0 / 0 [id number] Narrative: GENERAL: NAD, AAox3 SKIN: Warm and dry. HEENT: Atraumatic. Normocephalic. Pupils equal and round. No scleral icterus. No injection or drainage. No nasal bleeding or discharge. Mucous membranes pink and moist. Left upper molar with noted decay and gum swelling surrounding the tooth. No noted drainage or obvious abscess. NECK: Trachea midline. No JVD. CARDIOVASCULAR: Regular rate and rhythm. Systolic murmur at loudest at LSB. Reproducible chest wall pain on the right lower chest wall. RESPIRATORY: No accessory muscle use. Clear to auscultation. Breath sounds equal bilaterally. GASTROINTESTINAL: Abdomen soft, non-tender, nondistended. Hepatic and splenic margins not palpable. MUSCULOSKELETAL: Extremities without clubbing, cyanosis, or edema. No obvious deformities. NEUROLOGICAL: Awake and alert. No obvious cranial nerve deficits. Motor grossly within normal limits. Five out of 5 muscle strength in the arms and legs. Normal speech. PSYCHIATRIC: Appropriate mood and affect; insight and judgment normal. Results - Labs CBC & Chem 7: 11/08/17 13:39 11/07/17 08:35 Labs: Short CBC 11/06/17 Range/Units 03:30 WBC 6.4 (4.0-11.0) th/mm3 Hgb 5.6 L* (11.6-15.3) gm/dL Hct 19.9 L* (35.0-46.0) % Plt Count 412 (150-450) th/mm3 BMP 11/06/17 03:30 Sodium 142 Potassium 3.5 Chloride 110 H Carbon Dioxide 24.6 BUN 17 Creatinine 1.00 Calcium 8.1 L Liver Function 11/06/17 Range/Units 03:30 Total Bilirubin 0.1 L (0.2-1.0) mg/dL AST 22 (15-37) U/L ALT 28 (10-53) U/L Alkaline Phosphatase 52 (45-117) U/L Albumin 3.6 (3.4-5.0) g/dL Caprini VTE Risk Assessment Caprini VTE Risk Assessment: Moderate/High Risk (score >= 2) Caprini Risk Assessment Model: Point Value = 1 Point Value = 2 Point Value = 3 Point Value = 5 Age 41-60 Minor surgery BMI > 25 kg/m2 Swollen legs Varicose veins or History of unexplained or recurrent spontaneous Oral contraceptives or hormone replacement Sepsis (< 1 month) Serious lung disease, including pneumonia (< 1 month) Abnormal pulmonary function Acute myocardial infarction Congestive heart failure (< 1 month) History of inflammatory bowel disease Medical patient at bed rest Age 61-74 Arthroscopic surgery Major open surgery (> 45 min) Laparoscopic surgery (> 45 min) Malignancy Confined to bed (> 72 hours) Immobilizing plaster cast Central venous access Age >= 75 History of VTE Family history of VTE Factor V Leiden Prothrombin [id number] Lupus anticoagulant Anticardiolipin antibodies Elevated serum homocysteine Heparin-induced thrombocytopenia Other congenital or acquired thrombophilia Stroke (< 1 month) Elective arthroplasty Hip, pelvis, or leg fracture Acute spinal cord injury (< 1 month) Prophylaxis Regimen: Total Risk Factor Score Risk Level Prophylaxis Regimen 0-1 Low Early ambulation 2 Moderate Order ONE of the following: *Sequential Compression Device (SCD) *Heparin 5000 units SQ BID 3-4 Higher Order ONE of the following medications: *Heparin 5000 units SQ TID *Enoxaparin/Lovenox 40 mg SQ daily (WT < 150 kg, CrCl > 30 mL/min) *Enoxaparin/Lovenox 30 mg SQ daily (WT < 150 kg, CrCl > 10-29 mL/min) *Enoxaparin/Lovenox 30 mg SQ BID (WT < 150 kg, CrCl > 30 mL/min) AND/OR *Sequential Compression Device (SCD) 5 or more Highest Order ONE of the following medications: *Heparin 5000 units SQ TID (Preferred with Epidurals) *Enoxaparin/Lovenox 40 mg SQ daily (WT < 150 kg, CrCl > 30 mL/min) *Enoxaparin/Lovenox 30 mg SQ daily (WT < 150 kg, CrCl > 10-29 mL/min) *Enoxaparin/Lovenox 30 mg SQ BID (WT < 150 kg, CrCl > 30 mL/min) AND *Sequential Compression Device (SCD) Assessment and Plan - Assessment (1) Microcytic hypochromic anemia Code(s): D50.9 - Iron deficiency anemia, unspecified Status: Acute Plan: Microcytic anemia, acute on chronic Hx of DUB/uterine fibroids - Pt is a 36 y/o AAF with HTN, valvular heart failure, mitral valve regurgitation, and chronic microcytic anemia reportedly related to DUB/uterine fibroids. -Pt presented to the ED at [facility] [place] on 11/06/17 after she was seen as an outpt at [facility] on 11/01 with complaints generalized fatigue and weakness as well as a tooth ache. She was sent for blood work on 11/04 which noted her Hgb had decreased to 6.2 and Hct 25.6. She reports that her menstrual periods have been occurring more frequently the last few months. She states that she has been having heavy menstrual periods every 2-3 weeks which typically last around 7 days. She is currently on her menstrual period which began around 6 days ago. - In the ED her labs revealed Hgb 5.6/Hct 19.9, MCV 60. - She is being transfused with 4 units PRBCs and is receiving the first unit now. Pt was given a dose of IV Lasix as well. - She reports taking daily iron supplements - Monitor labs - Pt has not reestablished with a ASSISTANT QUALITY MANAGER yet. Chest wall pain - She states that yesterday she started having a constant chest discomfort in the lower right side of her chest wall which she had tried taking Tylenol #3 for yesterday but it did not seem to help. The chest pain is worse with taking a deep breath and is reproducible with palpation of the chest wall. - Check CE and EKG - Give [place] PRN for chest wall pain. Valvular heart failure Mitral valve regurgitation HTN - Pt takes Lasix and Atenolol and reports taking her medications daily - Pt was given a dose of IV Lasix in the ED and has been urinating frequently this morning. - Resume her home meds as the BP allows. - Clonidine PRN DVT prophylaxis with SCDs The exam, history, and the medical decision-making described in the above note were completed with the assistance of the mid-level provider. I reviewed and agree with the findings presented. I attest that I had a [id number] encounter with the patient on the same day, and personally performed and documented my assessment and findings in the medical record. 3 UNITS PRBC. WILL NEED IRON REPLACEMENT FOR IRON DEF. DYSFUNCTION UTERINE BLEEDING. NEEDS ASSISTANT QUALITY MANAGER REFERRAL. (2) DUB (dysfunctional uterine bleeding) Code(s): N93.8 - Other specified abnormal uterine and vaginal bleeding Status : Acute (3) Chest wall pain Code(s): R07.89 - Other chest pain Status: Acute (4) HTN (hypertension) Code(s): I10 - Essential (primary) hypertension Status: Acute (5) Mitral valve regurgitation Code(s): I34.0 - Nonrheumatic mitral (valve) insufficiency Status: Acute - Attending Attestation The exam, history, and the medical decision-making described in the above note were completed with the assistance of the mid-level provider. I reviewed and agree with the findings presented. I attest that I had a [id number] encounter with the patient on the same day, and personally performed and documented my assessment and findings in the medical record. Patient examined. Assessment and plan formulated with Amena Briseno PA-C. I agree with the above.
[2017-11-06] MEDS: Senna/Docusate Sodium 8.6/50 MG Tablet PO SCH ×2 (09:02→20:34)
[2017-11-06 09:21] LABS: Creatine Kinase 101 U/L (26-192)
[2017-11-06] MEDS: Potassium Chloride 10 MEQ ER Capsule PO SCH (10:12)
[2017-11-06] MEDS: Atenolol 50 MG Tablet PO SCH (10:13)
[2017-11-06 17:22] LABS: Baso # (Auto) 0.1 th/mm3 (0.0-0.2); Baso % (Auto) 0.8 % (0.0-2.0); Eos # (Auto) 0.1 th/mm3 (0.0-0.4); Eos % (Auto) 0.8 % (0.0-4.0); Hematocrit 26.6 % (35.0-46.0); Hemoglobin 7.8 gm/dL (11.6-15.3); Lymph # (Auto) 1.3 th/mm3 (1.0-4.8); Lymph % (Auto) 20.9 % (9.0-44.0); Mean Corpuscular Hemoglobin 19.2 pg (27.0-34.0); Mean Corpuscular Volume 65.8 fL (80.0-100.0); Mean Platelet Volume 8.5 fL (7.0-11.0); Mono # (Auto) 0.8 th/mm3 (0.0-0.9); Mono % (Auto) 13.3 % (0.0-8.0); Neut % (Auto) 64.2 % (16.0-70.0); Platelet Count 418 th/mm3 (150-450); Red Blood Count 4.05 mil/mm3 (4.00-5.30); Red Cell Distribution Width 24.8 % (11.6-17.2); White Blood Count 6.3 th/mm3 (4.0-11.0)
[2017-11-06 17:27] LABS: Mean Corpuscular HGB Conc 29.2 % (32.0-36.0)
[2017-11-06] MEDS: Temazepam 15 MG Capsule PO PRN (20:35)
[2017-11-07] MEDS: Atenolol 50 MG Tablet PO SCH (08:24)
[2017-11-07] MEDS: Furosemide 20 MG Tablet PO SCH (08:24)
[2017-11-07] MEDS: Potassium Chloride 10 MEQ ER Capsule PO SCH (08:24)
[2017-11-07] MEDS: Senna/Docusate Sodium 8.6/50 MG Tablet PO SCH ×2 (08:24→20:14)
--- NOTE | 2017-11-07 08:38 | P.PNIM ---
Subjective Interval history: Pt reports that she feels slightly better with the blood transfusion No labs drawn yet this morning She is still having vaginal bleeding and pt requesting HYDROELECTRIC STATION CHIEF evaluation while in the hospital Physical Exam Vital signs: Vital Signs 11/06/17 09:44 11/06/17 09:47 11/06/17 10:02 Temperature 98.5 F 98.5 F 97.9 F Pulse Rate 67 67 67 Respiratory Rate 17 17 16 Blood Pressure 120/65 120/65 124/63 Pulse Oximetry 100 11/06/17 10:10 11/06/17 12:00 11/06/17 17:17 Temperature 97.9 F 98.4 F 99 F Pulse Rate 64 69 69 Respiratory Rate 16 14 16 Blood Pressure 138/78 120/83 139/89 Pulse Oximetry 100 100 11/06/17 17:28 11/06/17 19:50 11/07/17 00:00 Temperature 98.9 F 98.8 F 98.9 F Pulse Rate 58 L 68 63 Respiratory Rate 16 17 16 Blood Pressure 140/88 170/77 H 140/87 Pulse Oximetry 100 100 100 11/07/17 02:54 11/07/17 03:46 11/07/17 07:29 Temperature 98.5 F 98.2 F Pulse Rate 66 66 Respiratory Rate 18 16 18 Blood Pressure 143/95 H 143/84 H Pulse Oximetry 98 100 Intake & Output 11/06/17 11/07/17 11/07/17 18:59 06:59 18:59 Intake Total 875 / 875 325 / 325 Balance 875 / 875 325 / 325 Intake: Intake (Blood Product) Amt 875 / 875 325 / 325 Rbc As-3 Leukoreduced Unit 400 / 400 [id number] Rbc As-3 Leukoreduced Unit 75 / 75 325 / 325 [id number] Rbc As-3 Leukoreduced Unit 400 / 400 [id number] Other: Date of Last Bowel Movement 11/04/17 11/04/17 Narrative: GENERAL: NAD, AAOx3 CARDIO: Regular, systolic murmur RESP: Breath sounds equal bilaterally. No accessory muscle use. ABD: Abdomen soft, non-tender, nondistended. EXT: No cyanosis, or edema. Results - Labs CBC & Chem 7: 11/07/17 08:35 11/07/17 08:35 Laboratory Results - last 24 hr 11/06/17 11/06/17 11/06/17 04:14 08:30 16:29 WBC 6.3 RBC 4.05 Hgb 7.8 L D Hct 26.6 L MCV 65.8 L D MCH 19.2 L MCHC 29.2 L RDW 24.8 H D Plt Count 418 MPV 8.5 Neut % (Auto) 64.2 Lymph % (Auto) 20.9 [place] % (Auto) 13.3 H Eos % (Auto) 0.8 Baso % (Auto) 0.8 Neut # (Auto) 4.0 Lymph # (Auto) 1.3 [place] # (Auto) 0.8 Eos # (Auto) 0.1 Baso # (Auto) 0.1 WBC Differential . Differential Comment Auto diff final Total Creatine Kinase 101 Troponin I Less than 0.02 L MTS Gel Crossmatch See Detail Assessment and Plan - Assessment (1) Microcytic hypochromic anemia Code(s): D50.9 - Iron deficiency anemia, unspecified Status: Acute Plan: Microcytic anemia, acute on chronic Hx of DUB/uterine fibroids - Pt is a 36 y/o AAF with HTN, valvular heart failure, mitral valve regurgitation, and chronic microcytic anemia reportedly related to DUB/uterine fibroids. -Pt presented to the ED [place] [facility] [place] 11[place]06[place]17 after she was seen as an outpt at [facility] on 11/01 with complaints generalized fatigue and weakness as well as a tooth ache. She was sent for blood work on 11/04 which noted her Hgb had decreased to 6.2 and Hct 25.6. She reports that her menstrual periods have been occurring more frequently the last few months. She states that she has been having heavy menstrual periods every 2-3 weeks which typically last around 7 days. She is currently on her menstrual period which began around 6 days ago. - In the ED her labs revealed Hgb 5.6/Hct 19.9, MCV 60. - She was transfused with 3 units PRBCs. Pt was given a dose of IV Lasix as well. - Repeat labs on 11/06 1ith Hgb 7.8/Hct 26.6 - She reports taking daily iron supplements. We will given IV Venofer during admission. - Monitor labs - Pt has not reestablished with a HYDROELECTRIC STATION CHIEF yet. She is requesting HYDROELECTRIC STATION CHIEF consultation during this hospitalization. Chest wall pain - She states that yesterday she started having a constant chest discomfort in the lower right side of her chest wall which she had tried taking Tylenol #3 for yesterday but it did not seem to help. The chest pain is worse with taking a deep breath and is reproducible with palpation of the chest wall. - CE and EKG are negative - [employer] PRN for chest wall pain. Valvular heart failure Mitral valve regurgitation HTN - Pt takes Lasix and Atenolol and reports taking her medications daily - Pt was given a dose of IV Lasix in the ED and has been urinating frequently this morning. - Cpnt. her home meds - Clonidine PRN DVT prophylaxis with SCDs (2) DUB (dysfunctional uterine bleeding) Code(s): N93.8 - Other specified abnormal uterine and vaginal bleeding Status : Acute (3) Chest wall pain Code(s): R07.89 - Other chest pain Status: Acute (4) HTN (hypertension) Code(s): I10 - Essential (primary) hypertension Status: Acute (5) Valvular heart disease Code(s): I38 - Endocarditis, valve unspecified Status: Acute (6) Mitral valve regurgitation Code(s): I34.0 - Nonrheumatic mitral (valve) insufficiency Status: Acute - Attending Attestation Patient examined. Assessment and plan formulated with Amena Briseno PA-C. I agree with the above. Repeat Hg 10.0 (11/07) following transfusion of 3 units of PRBCs. Pt c/o continued vaginal bleeding. Case d/w Gynecology. They will consult. Repeat Hg in AM. Anticipate d/c to home in 1-2 days.
[2017-11-07 10:06] LABS: Baso # (Auto) 0.1 th/mm3 (0.0-0.2); Baso % (Auto) 0.9 % (0.0-2.0); Eos # (Auto) 0.1 th/mm3 (0.0-0.4); Eos % (Auto) 0.6 % (0.0-4.0); Hematocrit 33.3 % (35.0-46.0); Lymph # (Auto) 1.2 th/mm3 (1.0-4.8); Lymph % (Auto) 13.6 % (9.0-44.0); Mean Corpuscular Hemoglobin 20.2 pg (27.0-34.0); Mean Corpuscular Volume 67.3 fL (80.0-100.0); Mean Platelet Volume 7.8 fL (7.0-11.0); Mono # (Auto) 0.9 th/mm3 (0.0-0.9); Mono % (Auto) 10.2 % (0.0-8.0); Neut # (Auto) 6.6 th/mm3 (1.8-7.7); Neut % (Auto) 74.7 % (16.0-70.0); Platelet Count 492 th/mm3 (150-450); Red Blood Count 4.94 mil/mm3 (4.00-5.30); Red Cell Distribution Width 25.9 % (11.6-17.2); White Blood Count 8.9 th/mm3 (4.0-11.0)
[2017-11-07 10:19] LABS: Calcium 8.7 mg/dL (8.5-10.1); Potassium 3.7 meq/L (3.5-5.1)
[2017-11-07 10:40] LABS: Dimorphic RBC Present; Ovalocytes 1+; Tear Drop Cells 1+
[2017-11-07 10:41] LABS: Platelet Estimate Normal (Normal); Platelet Morphology Normal (Normal); Spherocytes Occ
[2017-11-07] MEDS: Iron Sucrose Inj 200 MG in Sodium Chlor 0.9% Inj 100 ML IV.SIG SCH (11:03)
--- NOTE | 2017-11-07 12:11 | ECG ---
Date Performed: 11/05/2017 Time Performed: 22:02:50 PTAGE: 36 years EKG: Sinus rhythm NORMAL ECG PREVIOUS TRACING : 07/13/2017 08.31 DOCTOR: Jhonatan Anders Interpretating Date/Time 11/07/2017 12:05:06
--- NOTE | 2017-11-07 12:57 | P.CONOB ---
History of Present Illness - Data of Consult Consult date: 11/07/17 Requesting Physician: Milton Aguilera/ Sandoval Merino MD Primary Care Provider: No Primary Care Physician - Consult Narrative Reason for consult: vaginal bleeding, other (Intramural fibroids) Narrative: Alia Kim is a 36 year old female with heavy menses and known fibroids now at end of cycle. 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 She has 7 day menses heavy with clots on this admission hgb 5.6 prior to transfusion. she has had heavy menses for 4 years Review of Systems All other systems reviewed negative except as stated in HPI PMFSH - History History Provided By: Patient - Medical History Medical History: Medical History (Last Updated 11/07/17 @ 12:49 by Ashleigh Fry MD) delivery delivered HTN (hypertension) Iron deficiency anemia due to chronic blood loss Menorrhagia Mitral regurgitation - Surgical History Surgical History: Surgical History (Last Reviewed 11/06/17 @ 03:35 by Tae Mosley MD) No history of previous surgery - Tobacco History Second Hand Smoke Exposure: Yes Tobacco Use In Past 30 Days: Yes Smoking Status: Former smoker Tobacco Type: Cigarettes - Alcohol History How Often Do You Have a Drink Containing Alcohol: Monthly or less - Substance Use History Substance History: No History of Abuse - Travel History Recent Travel in the [place] Within the Last 8 Weeks: No Recent Travel Out of the Country Within the Last 8 Weeks: No - Immunization History Tetanus Immunization: <5 Years Hx Influenza Vaccine This Season: Yes Medications and Allergies Active Medications: Active Medications Acetaminophen (Tylenol) 650 mg PO Q4H PRN PRN Reason: Temp > 100.4 Last Admin: 11/06/17 17:20 Dose: 650 mg Hydrocodone Bitart/Acetaminophen ([place] 5/325) 1 tab PO Q4H PRN PRN Reason: pain 2-10 Last Admin: 11/07/17 12:18 Dose: 1 tab Al Hydroxide/Mg Hydroxide (Milk Of Magnesia Liq) 30 ml PO Q12H PRN PRN Reason: Mild Constipation Atenolol (Tenormin) 50 mg PO DAILY [facility]O Last Admin: 11/07/17 08:24 Dose: 50 mg Diphenhydramine HCl (Benadryl) 25 mg PO Q6H PRN PRN Reason: ITCHING Last Admin: 11/06/17 17:20 Dose: 25 mg Furosemide (Lasix Inj) 20 mg IV.PUSH ONCE PRN PRN Reason: Transfusion Last Admin: 11/06/17 07:12 Dose: 20 mg Furosemide (Lasix) 20 mg PO DAILY [facility] Last Admin: 11/07/17 08:24 Dose: 20 mg Iron Sucrose 200 mg/ Sodium (Chloride) 110 mls @ 110 mls/hr IV.SIG DAILY [facility] Stop: 11/09/17 09:59 Last Infusion: 11/07/17 12:14 Dose: Infused Ondansetron HCl (Zofran Odt) 4 mg PO Q6H PRN PRN Reason: NAUSEA OR VOMITING Potassium Chloride (Kcl) 10 meq PO DAILY [facility] Last Admin: 11/07/17 08:24 Dose: 10 meq Senna/Docusate Sodium (Kamilah-Colace) 1 tab PO BID [facility] Last Admin: 11/07/17 08:24 Dose: 1 tab Temazepam (Restoril) 15 mg PO HS PRN PRN Reason: INSOMNIA Last Admin: 11/06/17 20:35 Dose: 15 mg Allergies Allergy/AdvReac Type Severity Reaction Status Date / Time No Known Allergies Allergy Verified 11/05/17 21:50 Home Medications Medication Instructions Recorded Confirmed Type atenolol 50 mg PO DAILY 11/06/17 11/06/17 History cholecalciferol (vitamin D3) See Label Instructions .ROUTE 11/06/17 11/06/17 History [Vitamin D3] .COMPLEX furosemide [Lasix] 20 mg PO DAILY 11/06/17 11/06/17 History potassium chloride 10 meq PO DAILY 11/06/17 11/06/17 History Physical Exam Vital signs: Temp Pulse Resp BP Pulse Ox 98.2 F 62 16 133/76 100 11/07/17 11:24 11/07/17 11:24 11/07/17 11:24 11/07/17 11:24 11/07/17 11:24 - Constitutional no acute distress - Routine HEENT Exam Head: Present: normocephalic - Routine Neck Exam Present: supple, full ROM - Routine Respiratory Exam Present: CTA bilaterally - Routine Cardiovascular Exam Present: RRR - Routine Abdominal Exam Present: soft, normoactive bowel sounds - Routine Exam Perineal: Present: Intact - Detailed Pelvic Exam Uterus: Present: enlarged - Detailed Lower Extremity Exam Hip: Bilateral normal inspection Foot/Toes: Bilateral normal inspection - Routine Psychiatric Exam Present: normal affect, normal thought process Results - Labs CBC & Chem 7: 11/07/17 08:35 11/07/17 08:35 Labs: Short CBC 11/06/17 11/07/17 Range/Units 16:29 08:35 WBC 6.3 8.9 (4.0-11.0) th/mm3 Hgb 7.8 L D 10.0 L D (11.6-15.3) gm/dL Hct 26.6 L 33.3 L (35.0-46.0) % Plt Count 418 492 H (150-450) th/mm3 BMP 11/07/17 08:35 Sodium 141 Potassium 3.7 Chloride 108 H Carbon Dioxide 24.0 BUN 13 Creatinine 1.13 H Calcium 8.7 - Imaging reviewed US 05/06/2017 basil lawrence enlarged fibroids and 6 cm fibroid seen Assessment and Plan - Assessment (1) DUB (dysfunctional uterine bleeding) Code(s): N93.8 - Other specified abnormal uterine and vaginal bleeding Status : Acute (2) Intramural and submucous leiomyoma of uterus Code(s): D25.1 - Intramural leiomyoma of uterus; D25.0 - Submucous leiomyoma of uterus Status: Acute - Plan DC from [facility] when stable and Follow up Karol DASH or ashleigh Fry MD at office - Attending Attestation Brittany Roberson has seen and examined patient and we Reviewed in detail and reviewed labs and US from [place]
--- NOTE | 2017-11-07 17:21 | US ---
EXAM DATE: 11/07/2017 4:23 PM EDT AGE/SEX: 36 years / Female INDICATIONS: Vaginal bleeding. CLINICAL DATA: This is the patient's initial encounter. Patient reports that signs and symptoms have been present for 2 days and indicates a pain score of 0/10. MEDICAL/SURGICAL HISTORY: Hypertension. Anemia. Congestive heart failure. Menorrhagia. Madalyn l regurgitation. Blood transfusion. . COMPARISON: [facility], US TRANSVAGINAL, 05/06/2017. . MEASUREMENTS: Uterus:__12.4 x 7.0 x 8.3 cm Endometrial Stripe:__4 mm Right Ovary:__ 3.4 x 2.1 x 2.9 cm Left Ovary:__ 2.9 x 2.0 x 2.0 cm FINDINGS: Uterus: There is a large approximate 4.7 cm inhomogeneous fibroid within the uterus. Endometrial Stripe: Endometrial fluid is visualized. Right Ovary: There is a small approximate 1.7 cm cyst in the right ovary. Left Ovary: Ovary contains no mass or significant cystic lesion. Previously seen left ovarian cyst i s no longer seen. Fluid: No free fluid. Other: None. CONCLUSION: 1. Large uterine fibroid and small right ovarian cyst. Electronically signed by: Mario Grace MD 11/07/2017 5:19 PM EDT
[2017-11-07] MEDS: Temazepam 15 MG Capsule PO PRN (20:12)
[2017-11-08] MEDS: Potassium Chloride 10 MEQ ER Capsule PO SCH (09:49)
[2017-11-08] MEDS: Senna/Docusate Sodium 8.6/50 MG Tablet PO SCH (09:49)
[2017-11-08] MEDS: Atenolol 50 MG Tablet PO SCH (09:50)
[2017-11-08] MEDS: Furosemide 20 MG Tablet PO SCH (09:50)
[2017-11-08] MEDS: Iron Sucrose Inj 200 MG in Sodium Chlor 0.9% Inj 100 ML IV.SIG SCH (10:28)
--- NOTE | 2017-11-08 10:35 | P.DS ---
<Amena Briseno E - Last Filed: 11/08/17 10:17> Date of admission: 11/06/17 04:55 Primary care physician: No Primary Care Physician Attending physician on discharge: Ike Merino Anticipated date of discharge: 11/08/17 Brief History from admission: Ms. Kim is a pleasant 36 y/o AAF with HTN, valvular heart failure, mitral valve regurgitation, and chronic microcytic anemia reportedly related to DUB/ uterine fibroids. Pt presented to the ED at [facility] [place] [facility] on 11/06/17 after she was seen as an outpt at [facility] on 11/01 with complaints generalized fatigue and weakness as well as a tooth ache. She was sent for blood work on 11/04 which noted her Hgb had decreased to 6.2 and Hct 25.6. She reports that her menstrual periods have been occurring more frequently the last few months. She states that she has been having heavy menstrual periods every 2-3 weeks which typically last around 7 days. She is currently on her menstrual period which began around 6 days ago. She reports going through at least 4 overnight pads per day. She states that yesterday she started having a constant chest discomfort in the lower right side of her chest wall which she had tried taking Tylenol #3 for yesterday but it did not seem to help. The chest pain is worse with taking a deep breath or with palpation of the chest wall. She was contacted about her previous labs results and encouraged to go to the ED for evaluation. In the ED her labs revealed Hgb 5.6/Hct 19.9, MCV 60. She is being transfused with 4 units PRBCs and is receiving the first unit now. She denies any SOB, palpitations, cough, fevers/chills, diaphoresis, nausea/vomiting. She also reported some intermittent LE edema for the past few weeks. She reports that she has been compliant with her medications. She takes Atenolol 50mg po daily and Lasix 20mg daily. When she was seen at urgent care this past week she also complained of a left sided toothache. She was prescribed Augmentin BID x 10 days. The pain seemed to occur more with cold food items but doesn't seem to always hurt with chewing food. Her [facility] PCP is Dr. Milan. She has a followup appt scheduled with Dr. Russell on 11/09/17. Past Medical History HTN Valvular heart failure Mitral valve regurgitation Uterine fibroids Microcytic anemia, reportedly related to DUB FREDERIC (07/15/17) --> Estimated ejection fraction in the range of 60-65%. Left ventricular diastolic function parameters are normal. Mild thickening of the mitral valve leaflets. Moderate mitral valve regurgitation Myocardial Perfusion Scan (07/13/17) --> No ischemia. Satisfactory LV function Past Surgical History None reported Family History Denies any known family hx of CAD or ND Social History Pt smokes 1ppd x 18 years. Occasional social alcohol use Denies any illicit drug use DS: Diagnosis - Discharge Diagnosis (1) Microcytic hypochromic anemia Status: Acute (2) DUB (dysfunctional uterine bleeding) Status: Acute (3) Chest wall pain Status: Acute (4) HTN (hypertension) Status: Acute (5) Mitral valve regurgitation Status: Acute DS: Summary Hospital Course: Microcytic anemia, acute on chronic Hx of DUB/uterine fibroids - Pt is a 36 y/o AAF with HTN, valvular heart failure, mitral valve regurgitation, and chronic microcytic anemia reportedly related to DUB/uterine fibroids. Pt presented to the ED at [facility] on 11/06/17 after she was seen as an outpt at [facility] on 11/01 with complaints generalized fatigue and weakness as well as a tooth ache. She was sent for blood work on 11/04 which noted her Hgb had decreased to 6.2 and Hct 25.6. She reports that her menstrual periods have been occurring more frequently the last few months. She states that she has been having heavy menstrual periods every 2-3 weeks which typically last around 7 days. She is currently on her menstrual period which began around 6 days ago. In the ED her labs revealed Hgb 5.6/Hct 19.9, MCV 60. She was transfused with 3 units PRBCs. Pt was given a dose of IV Lasix as well. Repeat labs on 11/06 with Hgb 7.8/Hct 26.6. She reports taking daily iron supplements. Pt was given IV Venofer during admission. Repeat labs on 11/07 with Hgb 10.0/hct 33.3 Pt was seen by PA[employer]ER, Dr. Fry, on 11/07 consultation during this hospitalization. Pelvic US was performed on 11/07 --> Large uterine fibroid and small right ovarian cyst. Pts vaginal bleeding had minimized during admission. Her H/H has remained stable She will continue on iron supplements daily Pt will need to followup with Dr. Fry in 1-2 weeks Pt will need to followup with her PCP, Dr. Milan in 1 week. Chest wall pain - She states that yesterday she started having a constant chest discomfort in the lower right side of her chest wall which she had tried taking Tylenol #3 for yesterday but it did not seem to help. The chest pain is worse with taking a deep breath and is reproducible with palpation of the chest wall. CE and EKG are negative. pt was given [place] PRN for chest wall pain during admission. Valvular heart failure Mitral valve regurgitation HTN - Pt takes Lasix and Atenolol and reports taking her medications daily. Pt was given a dose of IV Lasix in the ED and has been urinating frequently. Pt was continued on po lasix and KCL. Cont. Her home meds upon discharge. - Time Spent with Patient Total time spent providing and/or coordinating discharge services: - Quality: VTE Deep Vein Thrombosis/Pulmonary Embolism Present on Admission: No Exam Vital signs: Vital Signs 11/07/17 11:24 11/07/17 15:43 11/07/17 19:34 Temperature 98.2 F 99.1 F 99.2 F Pulse Rate 62 62 79 Respiratory Rate 16 16 16 Blood Pressure 133/76 141/88 H 147/81 H Pulse Oximetry 100 99 99 11/08/17 03:39 11/08/17 07:37 Temperature 98.3 F 99.0 F Pulse Rate 67 70 Respiratory Rate 16 22 Blood Pressure 140/96 H 167/90 H Pulse Oximetry 98 98 Intake & Output 11/07/17 11/08/17 11/08/17 18:59 06:59 18:59 Intake Total 110 / 110 250 / 250 Balance 110 / 110 250 / 250 Intake: IV 110 / 110 250 / 250 Venofer Inj 200 MG In NS Inj 110 / 110 100 ML @ 110 mls/hr IV.SIG DAILY [facility]AL[facility] Rx#:[id number] Other: Date of Last Bowel Movement 11/04/17 11/04/17 Narrative: GENERAL: NAD, AAOx3 CARDIO: Regular RESP: Breath sounds equal bilaterally. No accessory muscle use. ABD: Abdomen soft, non-tender, nondistended. EXT: No cyanosis, or edema. Results Procedures completed during hospitalization: None Labs on day of discharge: Labs from last 24 hours 11/07/17 11/07/17 08:35 08:35 WBC Differential . Diff Scan Auto diff confirmed Platelet Estimate Normal Platelet Morphology Normal Dimorphic RBCs Present H Spherocytes Occ H Tear Drop Cells 1+ H Ovalocytes 1+ H Sodium 141 Potassium 3.7 Chloride 108 H Carbon Dioxide 24.0 Anion Gap 9 BUN 13 Creatinine 1.13 H Estimated GFR 67 L Random Glucose 90 Calcium 8.7 - Impressions ITS Impressions Pelvis Ultrasound 11/07/17 11:35 CONCLUSION: 1. Large uterine fibroid and small right ovarian cyst. <Ike Merino - Last Filed: 02/10/18 12:10> Date of admission: 11/06/17 04:55 Primary care physician: No Primary Care Physician DS: Diagnosis - Discharge Diagnosis (1) Microcytic hypochromic anemia Status: Acute (2) DUB (dysfunctional uterine bleeding) Status: Acute (3) Chest wall pain Status: Acute (4) HTN (hypertension) Status: Acute (5) Mitral valve regurgitation Status: Acute DS: Summary Hospital Course: The exam, history, and the medical decision-making described in the above note were completed with the assistance of the mid-level provider. I reviewed and agree with the findings presented. I attest that I had a [id number] encounter with the patient on the same day, and personally performed and documented my assessment and findings in the medical record. Patient examined. Assessment and plan formulated with Amena Briseno PA-C. I agree with the above. - Time Spent with Patient Total time spent providing and/or coordinating discharge services: Greater than 30 minutes Results - Impressions ITS Impressions Pelvis Ultrasound 11/07/17 11:35 CONCLUSION: 1. Large uterine fibroid and small right ovarian cyst. Discharge Plan - Discharge Order Discharge Orders: Discharge Order (Routine); Ordered 11/08/17 Ordered By: Amena Briseno - Discharge Details Anticipated Discharge Date: 11/08/17 Discharge Comment: Pt to have repeat CBC on 11/11/[address] Bobbi Guidry and Dr. Melvin Fry - Physicians Team Primary Care Provider: Primary Care Physici,No Attending Provider: Milton Aguilera Other Providers: Billy Magana MD
[2017-11-08 11:55] VITALS: BP 139/80; PULSE 73; RESP 16; TEMP 98.8; O2SAT 96
[2017-11-08 13:59] LABS: Baso % (Auto) 0.5 % (0.0-2.0); Eos % (Auto) 0.4 % (0.0-4.0); Hematocrit 30.8 % (35.0-46.0); Hemoglobin 9.3 gm/dL (11.6-15.3); Lymph # (Auto) 1.2 th/mm3 (1.0-4.8); Mean Corpuscular Hemoglobin 20.3 pg (27.0-34.0); Mean Corpuscular Volume 67.5 fL (80.0-100.0); Mean Platelet Volume 7.4 fL (7.0-11.0); Mono # (Auto) 0.9 th/mm3 (0.0-0.9); Mono % (Auto) 8.1 % (0.0-8.0); Neut # (Auto) 8.4 th/mm3 (1.8-7.7); Platelet Count 565 th/mm3 (150-450); Red Blood Count 4.57 mil/mm3 (4.00-5.30); White Blood Count 10.6 th/mm3 (4.0-11.0)
[2017-11-08 14:07] LABS: Mean Corpuscular HGB Conc 30.1 % (32.0-36.0)
[2017-11-08 14:54] LABS: Ovalocytes 1+
== END 2017-11-08 15:51 | disposition home or self-care (01) ==
LOC: NEDA 21:41 → NEPGCP 21:41 → NEPE 21:41 → NEDA 11-06 13:50 → NEPGCP 11-06 13:51
PROVIDERS: ADMIT Hospitalist; ATTEND Hospitalist
DX: N92.0 Excessive and frequent menstruation with regular cycle; I50.9 Heart failure, unspecified; D25.1 Intramural leiomyoma of uterus; D50.0 Iron deficiency anemia secondary to blood loss (chronic); I11.0 Hypertensive heart disease with heart failure; K08.89 Other specified disorders of teeth and supporting structures; R53.1 Weakness; R07.89 Other chest pain; R53.83 Other fatigue; Z87.891 Personal history of nicotine dependence; N83.201 Unspecified ovarian cyst, right side; I34.0 Nonrheumatic mitral (valve) insufficiency; R60.0 Localized edema; I38 Endocarditis, valve unspecified; Z79.899 Other long term (current) drug therapy

== ENCOUNTER 2018-01-05 17:04 | Observation (INO) ==
--- NOTE | 2018-01-05 18:09 | XR ---
EXAM DATE: 01/05/2018 6:04 PM EDT AGE/SEX: 37 years / Female INDICATIONS: . Short of breath and chest pain. CLINICAL DATA: This is the patient's initial encounter. Patient reports that signs and symptoms have been present for 2 days and indicates a pain score of 7/10. MEDICAL/SURGICAL HISTORY: . Heart murmur, leaky valve. None. COMPARISON: [facility] [place], CHEST SINGLE AP, 07/14/2017. . FINDINGS: PA and lateral views of the chest demonstrate the lungs to be symmetrically aerated without evidence of mass, infiltrate or effusion. The cardiomediastinal contours are unremarkable. Osseous structures are intact. CONCLUSION: Normal two-view chest x-ray. Electronically signed by: Melvin Ocasio MD 01/05/2018 6:08 PM EDT
[2018-01-05] MEDS ORDERED: Morphine Inj 4 MG/ML Vial IV.PUSH ONE ×2 (20:19→22:23)
--- NOTE | 2018-01-05 20:44 | ED ---
HPI General Chief complaint: Chest Pain Stated complaint: cardiac Time Seen by Provider: 01/05/18 20:05 History of Present Illness HPI narrative: 37-year-old female with a history of valvular heart failure, mitral valve regurgitate vincent, microcytic anemia due to dysfunctional uterine bleeding/uterine fibroids presents to the emergency department for evaluation of chest pain and shortness of breath for 2-3 days. Patient states that the symptoms have been intermittent. Describes the chest pain as across her entire chest and calls it a throbbing pain. Denies any aggravating or alleviating factors. She states that it does feel "like anxiety" and admits that she has had more anxiety recently. States that she did recently see her public information specialist Dr. Hwang 2 days ago and had an echocardiogram, states she was called by their office today and told that it was abnormal and told to come to our emergency department for further evaluation. Patient states that she also thinks her hemoglobin could be low again since she had her menstrual cycle last week, she is not currently bleeding. Denies any fever, chills, nausea, vomiting, abdominal pain, swelling of the extremities, cough or cold symptoms. Related Data Home Medications Medication Instructions Recorded Confirmed atenolol 50 mg PO DAILY 11/06/17 01/05/18 cholecalciferol (vitamin D3) See Label Instructions .ROUTE 11/06/17 01/05/18 [Vitamin D3] .COMPLEX furosemide [Lasix] 20 mg PO DAILY 11/06/17 01/05/18 potassium chloride 10 meq PO DAILY 11/06/17 01/05/18 Previous Rx's Medication Instructions Recorded tramadol [Ultram] 50 mg PO Q8H PRN #15 tab 11/09/17 Allergies Allergy/AdvReac Type Severity Reaction Status Date / Time No Known Allergies Allergy Verified 01/05/18 17:49 Review of Systems ROS: all other systems reviewed are negative [facility] Social History Social History Substance History: No History of Abuse Second Hand Smoke Exposure: No Smoking Status: Current every day smoker Tobacco Type: Cigarettes How Often Do You Have a Drink Containing Alcohol: 2 to 4 times a month Recent Travel in [facility] within the Last 8 Weeks: No Recent Out of Country Travel within the Last 8 Weeks: No Immunization History Tetanus Immunization: Unsure Hx Influenza Vaccine This Season: No Exam Narrative Exam Narrative: GENERAL: Well-nourished and well-developed pleasant patient in no acute distress who is nontoxic appearing. SKIN: Warm and dry. HEAD: Normocephalic and atraumatic. EYES: No injection, drainage, or hyphema noted. PERRLA. EOMI. ENT: No nasal drainage noted. Oropharynx is clear. NECK: Supple and the trachea is midline. CARDIOVASCULAR: Regular rate and rhythm. RESPIRATORY: Breath sounds are equal bilaterally with no accessory muscle use, wheezing, rhonchi, or crackles. GASTROINTESTINAL: Abdomen is soft, non-tender, and nondistended. No hepatosplenomegaly. MUSCULOSKELETAL: No obvious deformities, swelling, cyanosis, or ecchymosis is present throughout the upper and lower extremities. Patient has full range of motion without any signs of neurovascular compromise. Distal pulses are 2+ throughout. NEUROLOGICAL: Awake, alert, and oriented. Normal speech and gait. Cranial nerves are grossly intact. Course Initial Documented Vital Signs Temperature 99.4 F 01/05/18 17:47 Pulse Rate 74 01/05/18 17:47 Respiratory Rate 18 01/05/18 17:47 Blood Pressure 119/75 01/05/18 17:47 Pulse Oximetry 100 01/05/18 17:47 Last Documented Vital Signs Temperature 99.4 F 01/05/18 17:47 Pulse Rate 78 01/05/18 21:49 Respiratory Rate 16 01/05/18 21:49 Blood Pressure 117/67 01/05/18 21:49 Pulse Oximetry 98 01/05/18 21:49 Medical Decision Making MDM Narrative Medical decision making narrative: 37-year-old female presents to the emergency department for evaluation of chest pain. Patient is afebrile, vital signs are stable. Physical examination is essentially unremarkable. IV access is obtained, labs of been drawn and sent. Patient is placed on cardiac telemetry and pulse oximetry monitoring. EKG shows normal sinus rhythm with no acute ST elevations or depressions. Patient is administered morphine 4 mg IV and Zofran 4 mg IV. CBC shows anemia with a hemoglobin of 7.8, hematocrit 26.1. Coags are unremarkable. D-dimer is negative. CMP shows slightly reduced kidney function, otherwise unremarkable. Troponin is less than 0.02. Patient to be administered 1 unit of red blood cells for symptomatic anemia. Patient will be kept in observation for symptomatic anemia and to trend cardiac enzymes. I spoke with Dr. Sharif [facility] who agrees to take the patient under observation status to Dr. Merino's service. Medical Screen Exam Complete: Yes Emergency Medical Condition: Yes Differential Diagnosis Differential Diagnosis: ACS versus chest wall pain versus heart failure versus pleurisy versus anemia Lab Data Result diagrams: 01/05/18 20:28 01/05/18 20:28 POC Results POC Urine Results Negative Lab Results 01/05/18 01/05/18 01/05/18 Range/Units 20:08 20:28 20:28 WBC (4.0-11.0) th/mm3 RBC (4.00-5.30) mil/mm3 Hgb (11.6-15.3) gm/dL Hct (35.0-46.0) % MCV (80.0-100.0) fL MCH (27.0-34.0) pg MCHC (32.0-36.0) % RDW (11.6-17.2) % Plt Count (150-450) th/mm3 MPV (7.0-11.0) fL Neut % (Auto) (16.0-70.0) % Lymph % (Auto) (9.0-44.0) % Wirt % (Auto) (0.0-8.0) % Eos % (Auto) (0.0-4.0) % Baso % (Auto) (0.0-2.0) % Neut # (Auto) (1.8-7.7) th/mm3 Lymph # (Auto) (1.0-4.8) th/mm3 Wirt # (Auto) (0.0-0.9) th/mm3 Eos # (Auto) (0.0-0.4) th/mm3 Baso # (Auto) (0.0-0.2) th/mm3 WBC Differential Differential Comment PT (9.8-11.6) sec INR Ratio APTT (24.3-30.1) sec D-Dimer Quant (PE/DVT) 0.31 (0.00-0.50) mg/L FEU Sodium (136-145) meq/L Potassium (3.5-5.1) meq/L Chloride (98-107) meq/L Carbon Dioxide (21.0-32.0) meq/L Anion Gap (5-15) meq/L BUN (7-18) mg/dL Creatinine (0.50-1.00) mg/dL Estimated GFR (>89) mL/min Random Glucose (74-106) mg/dL Calcium (8.5-10.1) mg/dL Total Bilirubin (0.2-1.0) mg/dL AST (15-37) U/L ALT (10-53) U/L Alkaline Phosphatase (45-117) U/L Total Creatine Kinase (26-192) U/L CK-MB (CK-2) (0.5-3.6) ng/mL Troponin I (0.02-0.05) ng/mL B-Natriuretic Peptide 35 (0-100) pg/mL Total Protein (6.4-8.2) g/dL Albumin (3.4-5.0) g/dL MTS Gel Crossmatch See Detail 01/05/18 01/05/18 01/05/18 Range/Units 20:28 20:28 20:28 WBC 5.7 (4.0-11.0) th/mm3 RBC 3.53 L (4.00-5.30) mil/mm3 Hgb 7.8 L (11.6-15.3) gm/dL Hct 26.1 L (35.0-46.0) % MCV 73.9 L (80.0-100.0) fL MCH 22.0 L (27.0-34.0) pg MCHC 29.8 L (32.0-36.0) % RDW 22.0 H (11.6-17.2) % Plt Count 441 (150-450) th/mm3 MPV 7.2 (7.0-11.0) fL Neut % (Auto) 61.4 (16.0-70.0) % Lymph % (Auto) 25.6 (9.0-44.0) % Wirt % (Auto) 12.2 H (0.0-8.0) % Eos % (Auto) 0.2 (0.0-4.0) % Baso % (Auto) 0.6 (0.0-2.0) % Neut # (Auto) 3.5 (1.8-7.7) th/mm3 Lymph # (Auto) 1.5 (1.0-4.8) th/mm3 Wirt # (Auto) 0.7 (0.0-0.9) th/mm3 Eos # (Auto) 0.0 (0.0-0.4) th/mm3 Baso # (Auto) 0.0 (0.0-0.2) th/mm3 WBC Differential . Differential Comment Auto diff final PT 10.3 (9.8-11.6) sec INR 1.0 Ratio APTT 25.7 (24.3-30.1) sec D-Dimer Quant (PE/DVT) (0.00-0.50) mg/L FEU Sodium 139 (136-145) meq/L Potassium 3.9 (3.5-5.1) meq/L Chloride 106 (98-107) meq/L Carbon Dioxide 25.2 (21.0-32.0) meq/L Anion Gap 8 (5-15) meq/L BUN 16 (7-18) mg/dL Creatinine 1.14 H (0.50-1.00) mg/dL Estimated GFR 66 L (>89) mL/min Random Glucose 87 (74-106) mg/dL Calcium 8.3 L (8.5-10.1) mg/dL Total Bilirubin 0.1 L (0.2-1.0) mg/dL AST 16 (15-37) U/L ALT 19 (10-53) U/L Alkaline Phosphatase 49 (45-117) U/L Total Creatine Kinase 154 (26-192) U/L CK-MB (CK-2) Less than 1.0 (0.5-3.6) ng/mL Troponin I Less than 0.02 L (0.02-0.05) ng/mL B-Natriuretic Peptide (0-100) pg/mL Total Protein 7.3 (6.4-8.2) g/dL Albumin 3.7 (3.4-5.0) g/dL MTS Gel Crossmatch Imaging Data Radiologist's impression: Chest X-Ray 01/05/18 00:00 CONCLUSION: Normal two-view chest x-ray. Discharge Plan Physicians Team ED Provider: Yuri George ED Midlevel Provider: Carrie Ji Primary Care Provider: Lulu Nieto Rxs /Orders / Referrals /Forms Prescriptions: No Action potassium chloride 10 mEq Capsule, Extended Release 10 meq PO DAILY RF: 0 furosemide [Lasix] 20 mg Tablet 20 mg PO DAILY RF: 0 atenolol 50 mg Tablet 50 mg PO DAILY RF: 0 cholecalciferol (vitamin D3) [Vitamin D3] 1,000 unit Capsule See Label Instructions .ROUTE .COMPLEX RF: 0 tramadol [Ultram] 50 mg tablet 50 mg PO Q8H PRN (Reason: Acute pain) Qty: 15 RF: 0 Discharge Interventions Interventions: Vital Signs Last Done: 01/05/18 21:49 Status ED Status: With Doctor
[2018-01-05 21:03] LABS: Baso % (Auto) 0.6 % (0.0-2.0); Eos % (Auto) 0.2 % (0.0-4.0); Hematocrit 26.1 % (35.0-46.0); Hemoglobin 7.8 gm/dL (11.6-15.3); Lymph # (Auto) 1.5 th/mm3 (1.0-4.8); Lymph % (Auto) 25.6 % (9.0-44.0); Mean Corpuscular Volume 73.9 fL (80.0-100.0); Mean Platelet Volume 7.2 fL (7.0-11.0); Mono # (Auto) 0.7 th/mm3 (0.0-0.9); Mono % (Auto) 12.2 % (0.0-8.0); Neut # (Auto) 3.5 th/mm3 (1.8-7.7); Neut % (Auto) 61.4 % (16.0-70.0); Platelet Count 441 th/mm3 (150-450); Red Blood Count 3.53 mil/mm3 (4.00-5.30); White Blood Count 5.7 th/mm3 (4.0-11.0)
[2018-01-05 21:11] LABS: Mean Corpuscular HGB Conc 29.8 % (32.0-36.0)
[2018-01-05 21:13] LABS: Activated Partial Thrombo Time 25.7 sec (24.3-30.1); Prothrombin Time 10.3 sec (9.8-11.6)
[2018-01-05 21:18] LABS: Albumin 3.7 g/dL (3.4-5.0); Anion Gap 8 meq/L (5-15); Aspartate Aminotransferase 16 U/L (15-37); Blood Urea Nitrogen 16 mg/dL (7-18); Calcium 8.3 mg/dL (8.5-10.1); Carbon Dioxide 25.2 meq/L (21.0-32.0); Chloride 106 meq/L (98-107); Glomerular Filtration Rate 66 mL/min (>89); Glucose,Random 87 mg/dL (74-106); Potassium 3.9 meq/L (3.5-5.1); Sodium 139 meq/L (136-145)
[2018-01-05 21:19] LABS: Alanine Aminotransferase 19 U/L (10-53)
[2018-01-05 21:22] LABS: Alkaline Phosphatase 49 U/L (45-117); Creatine Kinase 154 U/L (26-192); Total Protein 7.3 g/dL (6.4-8.2)
[2018-01-05] MEDS ORDERED: Sodium Chlor 0.9% Inj 250 ML IV.SIG SCH (22:00)
--- NOTE | 2018-01-05 22:50 | P.HP ---
History of Present Illness Service: [facility] Primary Care Physician: Lulu Nieto MD Chief Complaint: Chest pain with generalized weakness sent by cardiology History of Present Illness: 37-year-old female with a history of hypertension, valvular heart disease, mitral valve regurgitation, chronic microcytic anemia reportedly related to dysfunctional uterine bleeding/uterine fibroids. Patient was in the hospital in October for anemia and required a total of 4 units of PRBCs. Presents today with complaints of fatigue weakness chest pain, shortness of breath, duration of 2-3 days, intermittent in nature, pain is described as across her entire chest throbbing pain. Patient denies any aggravating or alleviating factors. Patient does feel a little anxiety and that has been increasing as of late. Patient does state that she had a menstrual cycle last week which is always heavy and she may be anemic because of. Patient denies fever chills, nausea, vomiting, abdominal pain, swelling of the extremities, cough or cold symptoms. Was told by cardiology to go to the hospital apparently she had a 2D echo I believe which was abnormal cardiology,the office instructed her to come here. 37-year-old female with a history of valvular heart failure, mitral valve regurgitate vincent, microcytic anemia due to dysfunctional uterine bleeding/ uterine fibroids presents to the emergency department for evaluation of chest pain and shortness of breath for 2-3 days. Patient states that the symptoms have been intermittent. Describes the chest pain as across her entire chest and calls it a throbbing pain. Denies any aggravating or alleviating factors. She states that it does feel "like anxiety" and admits that she has had more anxiety recently. States that she did recently see her mechanical engineering intern Dr. Hwang 2 days ago and had an echocardiogram, states she was called by their office today and told that it was abnormal and told to come to our emergency department for further evaluation. Patient states that she also thinks her hemoglobin could be low again since she had her menstrual cycle last week, she is not currently bleeding. Denies any fever, chills, nausea, vomiting, abdominal pain, swelling of the extremities, cough or cold symptoms. In the emergency room workup lab work revealed a hemoglobin approximately 7.6 will admit be admitted for blood transfusion, and will last cardiac evaluation for the atypical chest pain. EKG chest x-ray and lab work unremarkable for acute coronary syndrome. Related Data - Diagnosis (1) Symptomatic anemia (2) Chest pain (3) Valvular heart disease (4) Intramural and submucous leiomyoma of uterus Review of Systems All other systems reviewed negative except as stated in HPI PMFSH - History History Provided By: Patient - Medical History Medical History: Medical History (Last Reviewed 11/09/17 @ 09:45 by Arpit Marcial) delivery delivered HTN (hypertension) Iron deficiency anemia due to chronic blood loss Menorrhagia Mitral regurgitation - Surgical History Surgical History: Surgical History (Last Reviewed 11/09/17 @ 09:45 by Arpit Marcial) No history of previous surgery - Tobacco History Second Hand Smoke Exposure: No Tobacco Use In Past 30 Days: Yes Smoking Status: Current every day smoker Tobacco Type: Cigarettes - Alcohol History How Often Do You Have a Drink Containing Alcohol: 2 to 4 times a month - Substance Use History Substance History: No History of Abuse - Travel History Recent Travel in the [place] Within the Last 8 Weeks: No Recent Travel Out of the Country Within the Last 8 Weeks: No - Immunization History Tetanus Immunization: Unsure Hx Influenza Vaccine This Season: No Medications and Allergies Active Medications: Active Medications Sodium Chloride (Ns Inj) 250 mls @ 15 mls/hr IV.SIG ONCE GALILEO Stop: 01/06/18 14:39 Sodium Chloride (Ns Flush) 2 ml IV.FLUSH UNSCH PRN PRN Reason: FLUSH AFTER USING IV ACCESS Allergies Allergy/AdvReac Type Severity Reaction Status Date / Time No Known Allergies Allergy Verified 01/05/18 17:49 Home Medications Medication Instructions Recorded Confirmed Type atenolol 50 mg PO DAILY 11/06/17 01/05/18 History cholecalciferol (vitamin D3) See Label Instructions .ROUTE 11/06/17 01/05/18 History [Vitamin D3] .COMPLEX furosemide [Lasix] 20 mg PO DAILY 11/06/17 01/05/18 History potassium chloride 10 meq PO DAILY 11/06/17 01/05/18 History Exam Vital signs: Vital Signs 01/05/18 17:47 01/05/18 17:49 01/05/18 20:34 Temperature 99.4 F Pulse Rate 74 61 81 Respiratory Rate 18 16 16 Blood Pressure 119/75 160/60 H Pulse Oximetry 100 98 99 01/05/18 21:49 Temperature Pulse Rate 78 Respiratory Rate 16 Blood Pressure 117/67 Pulse Oximetry 98 Intake & Output 01/05/18 01/05/18 01/06/18 06:59 18:59 06:59 Weight 77.111 kg Narrative: GENERAL: SKIN: Warm and dry. HEAD: Normocephalic. EYES: No scleral icterus. No injection or drainage. NECK: Supple, trachea midline. No JVD or lymphadenopathy. CARDIOVASCULAR: Regular rate and rhythm with 2/6 systolic murmur lsb, gallops, or rubs. Pain on palpation left and mid chest RESPIRATORY: Breath sounds equal bilaterally. No accessory muscle use. GASTROINTESTINAL: Abdomen soft, non-tender, nondistended. MUSCULOSKELETAL: No cyanosis, or edema. BACK: Nontender without obvious deformity. No CVA tenderness. Results - Labs CBC & Chem 7: 01/05/18 20:28 01/05/18 20:28 Labs: Laboratory Results - last 24 hr 01/05/18 01/05/18 01/05/18 20:08 20:28 20:28 WBC RBC Hgb Hct MCV MCH MCHC RDW Plt Count MPV Neut % (Auto) Lymph % (Auto) [place] % (Auto) Eos % (Auto) Baso % (Auto) Neut # (Auto) Lymph # (Auto) [place] # (Auto) Eos # (Auto) Baso # (Auto) WBC Differential Differential Comment PT INR APTT D-Dimer Quant (PE/DVT) 0.31 Sodium Potassium Chloride Carbon Dioxide Anion Gap BUN Creatinine Estimated GFR Random Glucose Calcium Total Bilirubin AST ALT Alkaline Phosphatase Total Creatine Kinase CK-MB (CK-2) Troponin I B-Natriuretic Peptide 35 Total Protein Albumin MTS Gel Crossmatch See Detail 01/05/18 01/05/18 01/05/18 20:28 20:28 20:28 WBC 5.7 RBC 3.53 L Hgb 7.8 L Hct 26.1 L MCV 73.9 L MCH 22.0 L MCHC 29.8 L RDW 22.0 H Plt Count 441 MPV 7.2 Neut % (Auto) 61.4 Lymph % (Auto) 25.6 [place] % (Auto) 12.2 H Eos % (Auto) 0.2 Baso % (Auto) 0.6 Neut # (Auto) 3.5 Lymph # (Auto) 1.5 [place] # (Auto) 0.7 Eos # (Auto) 0.0 Baso # (Auto) 0.0 WBC Differential . Differential Comment Auto diff final PT 10.3 INR 1.0 APTT 25.7 D-Dimer Quant (PE/DVT) Sodium 139 Potassium 3.9 Chloride 106 Carbon Dioxide 25.2 Anion Gap 8 BUN 16 Creatinine 1.14 H Estimated GFR 66 L Random Glucose 87 Calcium 8.3 L Total Bilirubin 0.1 L AST 16 ALT 19 Alkaline Phosphatase 49 Total Creatine Kinase 154 CK-MB (CK-2) Less than 1.0 Troponin I Less than 0.02 L B-Natriuretic Peptide Total Protein 7.3 Albumin 3.7 MTS Gel Crossmatch - Imaging Impressions Chest X-Ray 01/05/18 00:00 CONCLUSION: Normal two-view chest x-ray. - ECG Prior ECG tracings: available for review Interpretation: nsr no acute changes Caprini VTE Risk Assessment Caprini VTE Risk Assessment: Moderate/High Risk (score >= 2) VTE Pharmacological Exception Reason: Active bleeding Caprini Risk Assessment Model: Point Value = 1 Point Value = 2 Point Value = 3 Point Value = 5 Age 41-60 Minor surgery BMI > 25 kg/m2 Swollen legs Varicose veins or History of unexplained or recurrent spontaneous Oral contraceptives or hormone replacement Sepsis (< 1 month) Serious lung disease, including pneumonia (< 1 month) Abnormal pulmonary function Acute myocardial infarction Congestive heart failure (< 1 month) History of inflammatory bowel disease Medical patient at bed rest Age 61-74 Arthroscopic surgery Major open surgery (> 45 min) Laparoscopic surgery (> 45 min) Malignancy Confined to bed (> 72 hours) Immobilizing plaster cast Central venous access Age >= 75 History of VTE Family history of VTE Factor V Leiden Prothrombin [id number] Lupus anticoagulant Anticardiolipin antibodies Elevated serum homocysteine Heparin-induced thrombocytopenia Other congenital or acquired thrombophilia Stroke (< 1 month) Elective arthroplasty Hip, pelvis, or leg fracture Acute spinal cord injury (< 1 month) Prophylaxis Regimen: Total Risk Factor Score Risk Level Prophylaxis Regimen 0-1 Low Early ambulation 2 Moderate Order ONE of the following: *Sequential Compression Device (SCD) *Heparin 5000 units SQ BID 3-4 Higher Order ONE of the following medications: *Heparin 5000 units SQ TID *Enoxaparin/Lovenox 40 mg SQ daily (WT < 150 kg, CrCl > 30 mL/min) *Enoxaparin/Lovenox 30 mg SQ daily (WT < 150 kg, CrCl > 10-29 mL/min) *Enoxaparin/Lovenox 30 mg SQ BID (WT < 150 kg, CrCl > 30 mL/min) AND/OR *Sequential Compression Device (SCD) 5 or more Highest Order ONE of the following medications: *Heparin 5000 units SQ TID (Preferred with Epidurals) *Enoxaparin/Lovenox 40 mg SQ daily (WT < 150 kg, CrCl > 30 mL/min) *Enoxaparin/Lovenox 30 mg SQ daily (WT < 150 kg, CrCl > 10-29 mL/min) *Enoxaparin/Lovenox 30 mg SQ BID (WT < 150 kg, CrCl > 30 mL/min) AND *Sequential Compression Device (SCD) Assessment and Plan - Assessment (1) Symptomatic anemia Code(s): D64.9 - Anemia, unspecified Status: Acute Plan: transfuse 1 unit PRBC follow up cbc (2) Chest pain Code(s): R07.9 - Chest pain, unspecified Status: Acute Plan: chest pain atypical did improve with morphine no sins of failure but was topld by cardiology according to patient may have fluid around heart will consult (3) Valvular heart disease Code(s): I38 - Endocarditis, valve unspecified Status: Acute Plan: Consult cardiology (4) Intramural and submucous leiomyoma of uterus Code(s): D25.1 - Intramural leiomyoma of uterus; D25.0 - Submucous leiomyoma of uterus Status: Acute Plan: Patient did state that she needs to go to [facility] consideration for hysterectomy in view of the dysfunctional uterine bleeding - Plan Further plan as case develops Discussed Condition With: Patient (2) Chest pain Qualifiers: Chest pain type: other chest pain Qualified Code(s): R07.89 - Other chest pain; R07.8 - Other chest pain
[2018-01-05] MEDS ORDERED: Morphine Inj 4 MG/ML Vial IV.PUSH PRN (22:52)
[2018-01-05] MEDS ORDERED: Bisacodyl 10 MG Supp RECTAL PRN (22:54)
[2018-01-05] MEDS ORDERED: Acetaminophen 325 MG Tablet PO PRN (22:54)
[2018-01-05] MEDS ORDERED: Temazepam 15 MG Capsule PO PRN (22:54)
[2018-01-06 04:24] VITALS: RESP 16
[2018-01-06 07:41] VITALS: BP 131/82; TEMP 98.3
--- NOTE | 2018-01-06 07:55 | ECG ---
Date Performed: 01/05/2018 Time Performed: 17:57:03 PTAGE: 37 years EKG: Sinus rhythm NORMAL ECG Since the PREVIOUS TRACING , no significant change noted PREVIOUS TRACIN11/05/2017 22.02 DOCTOR: Evens Chavez Interpretating Date/Time 01/06/2018 07:53:12
--- NOTE | 2018-01-06 08:18 | P.CONCA ---
History of Present Illness Service: [facility] Consult date: 01/06/18 Requesting Physician: Tejas Sharif Reason for Consult: chest pain, severe MR Primary Care Provider: Lulu Nieto MD Chief Complaint: Chest pain with generalized weakness sent by cardiology History of Present Illness: 37 yo -French lady with a history of dysfunctional uterine bleeding with resultant iron deficiency anemia, moderate/severe MR and hypertension contacted our office yesterday afternoon with complaint of chest pain and fatigue. She was referred to the ER. She was initially seen in consultation at our office following [facility] admission 07/13/17 where she was seen with complaints of dyspnea with exertion. She had symptomatic anemia at the time, PND and lower extremity edema with chest x-ray revealing pulmonary vascular congestion and was diagnosed with decompensated CHF. An echocardiogram revealed EF 60-65% with severe MR, moderate LAE, LVEDD 5.9 cm, LVESD 4.1 cm, mild TR and PAP 38 mmHg. She was successfully diuresed with IV Lasix. She subsequently underwent FREDERIC with Dr. Tae Russell who noted normal LV systolic function, moderate MR, moderate LAE. A Lexiscan stress test was negative for myocardial ischemia/scar. She denies history of rheumatic heart disease or childhood illness. She completed a repeat transthoracic echocardiogram on 01/02/18 which revealed LVEF 60%, moderate LAE, moderate MR with posteriorly directed jet and possible slight systolic flow reversal in the pulmonary veins, PAP 21.3 mmHg, LVESD 3.9 cm. She presented overnight to [facility] ER due to complaint of fatigue and atypical chest pain. She describes having substernal chest discomfort while sitting and getting emotional talking on the phone. She reports that she has been having the sensation past 2 days. She does have some tingling in her right fingers on occasion. No exertional component. Nonpleuritic and nonreproducible. No lightheaded, dizziness, syncope, PND, orthopnea, or lower extremity edema. In the ER she was found to be anemic with hemoglobin 7.8. She continues to have persistent menorrhagia. She states that she received 1 unit of packed red blood cell transfusion and does not feel any different. Review of Systems All other systems reviewed negative except as stated in HPI [facility] - History History Provided By: Patient - Medical History Medical History: Medical History (Last Reviewed 11/09/17 @ 09:45 by Arpit Marcial) delivery delivered HTN (hypertension) Iron deficiency anemia due to chronic blood loss Menorrhagia Mitral regurgitation - Surgical History Surgical History: Surgical History (Last Reviewed 11/09/17 @ 09:45 by Arpit Marcial) No history of previous surgery - Tobacco History Second Hand Smoke Exposure: Yes Tobacco Use In Past 30 Days: Yes Smoking Status: Light tobacco smoker Tobacco Type: Cigarettes - Alcohol History How Often Do You Have a Drink Containing Alcohol: 2 to 4 times a month - Substance Use History Substance History: No History of Abuse - Travel History Recent Travel in the [facility] Within the Last 8 Weeks: No Recent Travel Out of the Country Within the Last 8 Weeks: No - Immunization History Tetanus Immunization: Unsure Hx Influenza Vaccine This Season: No Medications and Allergies Active Medications: Active Medications Acetaminophen (Tylenol) 650 mg PO Q4H PRN PRN Reason: Temp > 100.4 Atenolol (Tenormin) 50 mg PO DAILY GALILEO Bisacodyl (Dulcolax Supp) 10 mg RECTAL DAILY PRN PRN Reason: SEVERE CONSITIPATION Furosemide (Lasix) 20 mg PO DAILY GALILEO Sodium Chloride (Ns Inj) 250 mls @ 15 mls/hr IV.SIG ONCE GALILEO Stop: 01/06/18 14:39 Last Infusion: 01/06/18 06:00 Dose: Infused Morphine Sulfate (Morphine Inj) 4 mg IV.PUSH Q4H PRN PRN Reason: PAIN SCALE 6 TO 10 Last Admin: 01/06/18 02:11 Dose: 4 mg Ondansetron HCl (Zofran Inj) 4 mg IV.PUSH Q6H PRN PRN Reason: NAUSEA OR VOMITING Potassium Chloride (Kcl) 10 meq PO DAILY GALILEO Sennosides (Senokot) 17.2 mg PO Q12H PRN PRN Reason: Moderate Constipation Sodium Chloride (Ns Flush) 2 ml IV.FLUSH UNSCH PRN PRN Reason: FLUSH AFTER USING IV ACCESS Temazepam (Restoril) 15 mg PO HS PRN PRN Reason: INSOMNIA Allergies Allergy/AdvReac Type Severity Reaction Status Date / Time No Known Allergies Allergy Verified 01/05/18 17:49 Home Medications Medication Instructions Recorded Confirmed Type atenolol 50 mg PO DAILY 11/06/17 01/05/18 History cholecalciferol (vitamin D3) See Label Instructions .ROUTE 11/06/17 01/05/18 History [Vitamin D3] .COMPLEX furosemide [Lasix] 20 mg PO DAILY 11/06/17 01/05/18 History potassium chloride 10 meq PO DAILY 11/06/17 01/05/18 History Exam Vital signs: Vital Signs 01/05/18 17:47 01/05/18 17:49 01/05/18 20:34 Temperature 99.4 F Pulse Rate 74 61 81 Respiratory Rate 18 16 16 Blood Pressure 119/75 160/60 H Pulse Oximetry 100 98 99 01/05/18 21:49 01/06/18 00:00 01/06/18 01:58 Temperature 99.0 F 98.2 F Pulse Rate 78 68 65 Respiratory Rate 16 16 18 Blood Pressure 117/67 135/73 113/69 Pulse Oximetry 98 100 99 01/06/18 02:20 01/06/18 04:00 01/06/18 07:37 Temperature 98.4 F 98.4 F 98.3 F Pulse Rate 62 62 63 Respiratory Rate 20 16 16 Blood Pressure 122/76 112/57 L 131/82 Pulse Oximetry 100 100 Intake & Output 01/05/18 01/06/18 01/06/18 18:59 06:59 18:59 Intake Total 428 / 428 Balance 428 / 428 Weight 77.111 kg 78.3 kg Intake: IV NS Inj 250 ML @ 15 mls/hr IV. SIG ONCE GALILEO Rx#:[id number] Intake (Blood Product) Amt 400 / 400 Rbc As-3 Leukoreduced Unit 400 / 400 [id number] Other: Weight On Admission 78.3 kg Narrative: GENERAL: Difficult personality but comfortable appearing, speaking full sentences SKIN: Warm and dry. HEAD: Atraumatic. Normocephalic. NECK: Trachea midline. No JVD. CARDIOVASCULAR: Regular rate and rhythm. 2/6 systolic ejection murmur at the left lower sternal border RESPIRATORY: No accessory muscle use. Clear to auscultation. Breath sounds equal bilaterally. GASTROINTESTINAL: Abdomen soft, non-tender, nondistended. MUSCULOSKELETAL: Extremities without clubbing, cyanosis, or edema. No obvious deformities. NEUROLOGICAL: Awake and alert. No obvious cranial nerve deficits. Normal speech. PSYCHIATRIC: Appropriate mood and affect; insight and judgment normal. Results 01/05/18 20:28 01/05/18 20:28 Cardiac Enzymes 01/05/18 01/05/18 Range/Units 20:28 20:28 AST 16 (15-37) U/L CK-MB (CK-2) Less than 1.0 (0.5-3.6) ng/mL Troponin I Less than 0.02 L (0.02-0.05) ng/mL B-Natriuretic Peptide 35 (0-100) pg/mL Coagulation 01/05/18 01/05/18 Range/Units 20:28 20:28 PT 10.3 (9.8-11.6) sec APTT 25.7 (24.3-30.1) sec B-Natriuretic Peptide 35 (0-100) pg/mL CBC 01/05/18 Range/Units 20:28 WBC 5.7 (4.0-11.0) th/mm3 RBC 3.53 L (4.00-5.30) mil/mm3 Hgb 7.8 L (11.6-15.3) gm/dL Hct 26.1 L (35.0-46.0) % Plt Count 441 (150-450) th/mm3 Neut # (Auto) 3.5 (1.8-7.7) th/mm3 Lymph # (Auto) 1.5 (1.0-4.8) th/mm3 Hettinger # (Auto) 0.7 (0.0-0.9) th/mm3 Eos # (Auto) 0.0 (0.0-0.4) th/mm3 Baso # (Auto) 0.0 (0.0-0.2) th/mm3 Comprehensive Metabolic Panel 01/05/18 Range/Units 20:28 Sodium 139 (136-145) meq/L Potassium 3.9 (3.5-5.1) meq/L Chloride 106 (98-107) meq/L Carbon Dioxide 25.2 (21.0-32.0) meq/L BUN 16 (7-18) mg/dL Creatinine 1.14 H (0.50-1.00) mg/dL Calcium 8.3 L (8.5-10.1) mg/dL AST 16 (15-37) U/L ALT 19 (10-53) U/L Alkaline Phosphatase 49 (45-117) U/L Total Protein 7.3 (6.4-8.2) g/dL Albumin 3.7 (3.4-5.0) g/dL Intake and Output 01/05/18 01/06/18 01/06/18 22:59 06:59 14:59 Intake Total 428 / 428 Balance 428 / 428 Intake: IV NS Inj 250 ML @ 15 mls/hr IV. SIG ONCE GALILEO Rx#:[id number] Intake (Blood Product) Amt 400 / 400 Rbc As-3 Leukoreduced Unit 400 / 400 [id number] Other: Weight 77.111 kg 78.3 kg Weight On Admission 78.3 kg Assessment and Plan - Plan Assessment: -Atypical chest pain. Lexiscan negative for myocardial ischemia 06/2017. Doubt this is due to myocardial ischemia. She will require left/right heart catheterization and coronary angiography for her likely need for MVR in the near future. We will proceed with this today with Dr. Tae Russell. -Moderate/severe MR: L/RHC and coronary angiography with FREDERIC today while she is here. -Symptomatic anemia: Agree with transfusion of PRBCs Disposition: If no significant obstructive coronary artery disease is found, I suspect she should be able to be discharged later on today following the above- mentioned studies. Will have her set up on an outpatient basis with CTS for management of her mitral valve disorder
[2018-01-06] MEDS ORDERED: Atenolol 50 MG Tablet PO SCH (09:00)
[2018-01-06] MEDS ORDERED: Potassium Chloride 10 MEQ ER Capsule PO SCH (09:00)
[2018-01-06] MEDS ORDERED: Furosemide 20 MG Tablet PO SCH (09:00)
[2018-01-06 09:39] LABS: Baso % (Auto) 0.6 % (0.0-2.0); Eos % (Auto) 0.4 % (0.0-4.0); Hematocrit 26.2 % (35.0-46.0); Hemoglobin 8.1 gm/dL (11.6-15.3); Lymph # (Auto) 1.1 th/mm3 (1.0-4.8); Lymph % (Auto) 23.2 % (9.0-44.0); Mean Corpuscular Volume 75.1 fL (80.0-100.0); Mean Platelet Volume 7.1 fL (7.0-11.0); Mono # (Auto) 0.7 th/mm3 (0.0-0.9); Mono % (Auto) 15.6 % (0.0-8.0); Neut # (Auto) 2.8 th/mm3 (1.8-7.7); Neut % (Auto) 60.2 % (16.0-70.0); Platelet Count 345 th/mm3 (150-450); Red Cell Distribution Width 21.5 % (11.6-17.2); White Blood Count 4.6 th/mm3 (4.0-11.0)
[2018-01-06 09:40] LABS: Mean Corpuscular HGB Conc 30.7 % (32.0-36.0)
[2018-01-06 10:02] LABS: Calcium 8.4 mg/dL (8.5-10.1); Carbon Dioxide 25.3 meq/L (21.0-32.0); Potassium 4.3 meq/L (3.5-5.1)
[2018-01-06 10:20] VITALS: PULSE 59
[2018-01-06] MEDS ORDERED: Chlorhexidine Gluconate 2% 1 Pack (2 Cloths) TOPICAL ONE (10:53)
[2018-01-06] MEDS ORDERED: Metoprolol Tartrate 25 MG Tablet PO ONE (10:53)
[2018-01-06] MEDS ORDERED: Sodium Chlor 0.9% Inj 500 ML IV.SIG SCH (11:00)
[2018-01-06] MEDS ORDERED: Lidocaine PF 1% Inj 5 ML Syringe OTHER ONE (12:15)
[2018-01-06] MEDS ORDERED: fentaNYL Citrate Inj 100 MCG/2 ML Ampul ONE ×2 (13:21→13:58)
--- NOTE | 2018-01-06 14:16 | CATHPROC ---
[employer] HIS Report Study Information Study Number Admission Scheduled Start Study Start [id number] Jan 05 2018 10:23PM 01/06/2018 Jan 06 2018 12:59PM [place] [facility] Cardiac Catheterization Admit Source Facility Department Other [facility] - Rotary Drill Operator Physician and Clinical Staff Initial MD Hwang, Jamie [employer] Superintendent Rohit OG, Piyush Recorder Clemencia Fine,RT(R) Nora Chirinos ,RT(R) Equipment Time Collet Making Machine Operator Description Size Mfg Part Number Used/Scraped 13:53 [employer] MEDICAL SHEATH, FR5.5 PRELUDE 11CM FR 5 [id number] Used [id number] 13:53 [employer] MEDICAL SHEATH, FR6.5 PRELUDE 11CM FR 6.5 [id number] Used *[id number] History: Current Medications Medication Dosage/Unit Route Frequency Last Date/Time Taken Beta Zara History: Allergies Allergy Reaction No Known Allergies *MDRO Multi-Drug Resistant Organism caffeine History: Other Current Smoker Method Packs a Day Years Used Pack Years Yes Cigarettes 1 18 18 Labs Hgb (g/dl) Hct (%) WBC (l/cumm) Platelets (thousands) 11.60-17.00 35.00-51.00 4.00-11.00 150.00-450.00 7.8 26.1 5.7 441 Glucose (mg/dl) BUN (mg/dl) Creatinine (mg/dl) BUN:Creatinine (1:x) 74.00-106.00 7.00-18.00 0.50-1.30 10.00-20.00 87 16 1.1 14.5 Na (meq/l) K (meq/l) 136.00-145.00 3.50-5.10 139 3.9 INR (PTT:PT) 0.90-1.10 1 Troponin I (ng/ml) CPK (u/l) CPK-MB (ng/ML) 0.02-0.05 26.00-308.00 0.50-3.60 0.02 154 1.0 Medication Medication Total Dose (Bolus/Oral) Medication Total Dosage/Unit 1% XYLOCAINE 25 mL FENTANYL 200 mcg VERSED 2.5 mg Medications (Bolus/Oral) Medication Time Given Dosage/Unit Administered By Reason VERSED 01/06/2018 1:41:53 PM 1 mg Rohit RN, Piyush 1 mg VERSED given in lab by Rohit OG, Piyush in Left Antecubital via Peripheral IV. Ordered by Jamie Hwang. FENTANYL 01/06/2018 1:42:05 PM 50 mcg Rohit OG, Piyush 50 mcg FENTANYL given in lab by Rohit OG, Piyush in Left Antecubital via Peripheral IV. Ordered by Jamie Donis. VERSED 01/06/2018 1:44:20 PM 0.5 mg Rohit OG, Piyush 0.5 mg VERSED given in lab by Rohit OG, Piyush in Left Antecubital via Peripheral IV. Ordered by Jamie Hwang. 1% XYLOCAINE 01/06/2018 1:44:53 PM 5 mL Jamie Hwang 5 mL 1% XYLOCAINE given in lab by Jamie Hwang in Right AC via Subcutaneous. VERSED 01/06/2018 1:51:13 PM 0.5 mg Rohit OG, Piyush 0.5 mg VERSED given in lab by Rohit OG, Piyush in Left Antecubital via Peripheral IV. Ordered by Jamie Hwang. VERSED 01/06/2018 1:53:50 PM 0.5 mg Rohit OG, Piyush 0.5 mg VERSED given in lab by Rohit OG, Piyush in Left Antecubital via Peripheral IV. Ordered by Jamie Hwang. FENTANYL 01/06/2018 1:54:29 PM 50 mcg Rohit OG, Piyush 50 mcg FENTANYL given in lab by Rohit OG, Piyush in Left Antecubital via Peripheral IV. Ordered by Jamie Donis. 1% XYLOCAINE 01/06/2018 1:56:03 PM 20 mL Jamie Hwang 20 mL 1% XYLOCAINE given in lab by Jamie Hwang in Right Groin via Subcutaneous. FENTANYL 01/06/2018 1:59:17 PM 50 mcg Rohit OG, Piyush 50 mcg FENTANYL given in lab by Rohit OG, Piyush in Left Antecubital via Peripheral IV. Ordered by Jamie Donis. FENTANYL 01/06/2018 2:03:12 PM 50 mcg Rohit OG, Piyush 50 mcg FENTANYL given in lab by Rohit OG, Piyush in Left Antecubital via Peripheral IV. Ordered by Jamie Donis. Medication (Drip) Medication Time Given Dosage/Unit Concentration/Unit Diluent (ml) Solutio n IV Solutions 01/06/2018 1:07:44 PM 50 mL (IV) NaCl .9 IV Solutions given in lab by Rohit OG, Piyush in Left Antecubital via Peripheral IV. Pump/Drip Flow us ing NaCl .9. Initial Case Assessment Cardiovascular Edema Present Skin color Skin None Normal Warm Dry Circulatory - Right Pulses Dorsalis Pedis Femoral Radial 3 3 3 Scale (0,1,2,3,4,d) Circulatory - Left Pulses Dorsalis Pedis Femoral Radial 3 3 Scale (0,1,2,3,4,d) Neurological State Oriented to time-place- Alert Moves all extremities person Chronological Log Time Study Chronological Log 12:55:20 Patient arrived via Bed. Vitals capture started with the following parameters, Patient=Adult, Interval=5 min, Initial Pr bjwuke=399 mmHg, 13:05:34 Deflation Rate=5 mmHg, Cuff placed on Left Arm 13:06:05 Reference ECG taken 13:06:20 HR=54 bpm, MBVM=693/94 mmhg, GkI8=379.0 %, Resp=10 B/min 13:07:19 Patient Name, D.O.B, / Armband Verified By R.N. 13:07:22 Consent signed by the physician and the patient and verified by the Rotary Drill Operator staff. 13:07:22 Pre-op and post- op instructions given; patient acknowledges understanding of instructions. 13:07:25 Presedation assessment performed by Rotary Drill Operator RN. 13:07:28 Allens test performed on the right radial and ulnar artery. 13:07:30 Patient has been NPO for More than 6Hrs. 13:07:32 Skin Breakdown- none per pt 13:07:33 Patient Warmer Placed on the Table. 13:07:37 Robson Prominences Protected 13:07:39 A # 20 IV was noted in the Antecubital (left). Grade = 0 13:07:40 A # 20 IV was noted in the Antecubital (right). Grade = 0 13:07:44 IV Solutions given in lab by Piyush Bee RN in Left Antecubital via Peripheral IV. Pump/Dr ip Flow using NaCl .9. 13:07:45 History and physical on the chart or being dictated. Assessment: Initial Case, Edema=None, Color=Normal, Skin = Warm, Dry Right Pulses: Gian Ped=3, Femoral=3, Radial=3 13:07:46 Left Pulses: Gian Ped=3, Femoral=3 Neurological: State=Alert, Ox3, BALES 13:11:17 HR=54 bpm, CXMW=711/84 mmhg, KnN2=375.0 %, Resp=10 B/min 13:16:57 HR=62 bpm, JBMH=196/84 mmhg, BlM9=721.0 %, Resp=11 B/min 13:17:31 Right radial, right brachial, and groin(s) prepped with 2% chlorhexidine, and draped after a 3 min. waiting time. 13:21:19 HR=54 bpm, LWZZ=450/90 mmhg, WtY3=547.0 %, Resp=8 B/min 13:25:01 Pressure channel 1 zeroed. 13:25:24 MD paged 13:26:05 MD responded 13:26:06 HR=62 bpm, DBMB=065/99 mmhg, RjN6=715.0 %, Resp=12 B/min 13:31:52 HR=51 bpm, MMKR=733/88 mmhg, WfE1=271.0 %, Resp=11 B/min 13:36:16 HR=58 bpm, HPWZ=602/94 mmhg, CsO5=810.0 %, Resp=20 B/min 13:37:19 MD arrived. Time Out. Correct patient, correct procedure, correct physician, labs, allergies, and equipment verified with slab stripper 13:40:33 team present. Fire risk assesment completed (see hard stop sheet for coding). Time Out Conc urred by MD and individual staff in procedure. 13:41:19 Case Start 13:41:20 HR=59 bpm, NDPM=617/89 mmhg, SpO2=99.0 %, Resp=12 B/min 13:41:53 1 mg VERSED given in lab by Piyush Bee RN in Left Antecubital via Peripheral IV. Ordered by Jamie Hwang. 13:42:05 50 mcg FENTANYL given in lab by Piyush Bee RN in Left Antecubital via Peripheral IV. Orde red by Jamie Hwang. 13:44:20 0.5 mg VERSED given in lab by Piyush Bee RN in Left Antecubital via Peripheral IV. Ordere d by Jamie Hwang. 13:44:53 5 mL 1% XYLOCAINE given in lab by Jamie Hwang in Right AC via Subcutaneous. 13:46:14 HR=58 bpm, KXIP=262/82 mmhg, SpO2=99 %, Resp=12 B/min 13:49:20 AC access not successful, position aborted 13:51:13 0.5 mg VERSED given in lab by Rohit OG, Piyush in Left Antecubital via Peripheral IV. Ordere d by Jamie Hwang. 13:51:18 HR=54 bpm, PZQV=990/88 mmhg, SpO2=97.0 %, Resp=16 B/min 13:53:50 0.5 mg VERSED given in lab by Rohit OG, Piyush in Left Antecubital via Peripheral IV. Ordere d by Jamie Hwang. 13:54:29 50 mcg FENTANYL given in lab by Rohit OG, Piyush in Left Antecubital via Peripheral IV. Orde red by Jamie Hwang. 13:56:03 20 mL 1% XYLOCAINE given in lab by Jamie Hwang in Right Groin via Subcutaneous. 13:57:00 HR=74 bpm, NVGO=695/104 mmhg, SpO2=99 %, Resp=16 B/min 13:59:17 50 mcg FENTANYL given in lab by Rohit OG, Piyush in Left Antecubital via Peripheral IV. Orde red by Jamie Hwang. 13:59:19 NIBP STAT measurement started. 14:00:02 HR=64 bpm, BFBN=681/87 mmhg, QyW5=842.0 %, Resp=13 B/min 14:01:18 HR=65 bpm, PDEC=311/83 mmhg, SpO2=99.0 %, Resp=16 B/min 14:03:12 50 mcg FENTANYL given in lab by Rohit OG, Piyush in Left Antecubital via Peripheral IV. Orde red by Jamie Hwang. 14:03:44 NIBP STAT measurement started. 14:04:22 Case End (Physician broke scrub) 14:04:26 HR=75 bpm, VMEF=642/80 mmhg, EpF1=202 %, Resp=9 B/min Pt refusing to continue with procedure due to feeling pain in her groin trying to get access. P t told doctor to stop and 14:04:31 get off of her, dont do this. 14:06:21 HR=72 bpm, QDTT=685/83 mmhg, SpO2=93.0 %, Resp=14 B/min 14:11:17 Vitals capture stopped. 14:12:18 Patient moved to stretcher End Study - Maximum Contrast Load Max Contrast Load (mL) 356.0 End Study - Radiation Exposure Fluoro Time (minutes) 0.1 End Study - Patient Disposition Complications Not selected
--- NOTE | 2018-01-06 14:41 | P.PCNCA ---
- Cardiology Procedure Note Procedure: Planned L/RHC with coronary angiography today indication: atypical chest pain and pre-potential MVR Patient was administered multiple doses of sedating medications, far in excess of typical doses at 250mcg of fentanyl and 2.5mg of versed. Patient was administered 1% lidocaine in right brachial PIV site to potentially swap PIV for 5F sheath for RHC. The PIV did not flush so site was abandoned. Attention was to right femoral vein/artery for procedure. She was then provided multiple doses of 1% lidocaine, approximately 20cc in total for local anesthetic. She still complained of pain with 22g needle puncture in lieu of sleeping prior to needle sticks. BP was lowered with multiple doses of moderate sedation and HR 40s-50s sinus mary. Patient requested to stop the procedure and not proceed. The procedure was terminated without ever having artery puncture or venipuncture. Discussed with patient that we will proceed with coronary CTA to further evaluate coronary anatomy.
[2018-01-06 14:55] VITALS: O2SAT 100
--- NOTE | 2018-01-07 22:31 | ECG ---
Date Performed: 01/06/2018 Time Performed: 07:31:11 PTAGE: 37 years EKG: SINUS BRADYCARDIA WITH FIRST DEGREE AV BLOCK ABNORMAL ECG PREVIOUS TRACING : 01/05/2018 17.57 DOCTOR: Jhonatan Anders Interpretating Date/Time 01/07/2018 22:23:04
--- NOTE | 2018-01-09 13:32 | ECHRPT ---
Indication: MR CONCLUSIONS Normal left ventricular size and wall thickness. The left ventricular systolic function is normal wi th an estimated ejection fraction in the range of 60-65%. Left ventricular diastolic function parameters a re normal. The left atrial size is mildly dilated. Mild thickening of the mitral valve leaflets. Moderate mitral valve regurgitation. BP: / HR: Rhythm: Technical Quality: Medications Complications Proc. Components FINDINGS LEFT VENTRICLE Normal left ventricular size and wall thickness. The left ventricular systolic function is normal wi th an estimated ejection fraction in the range of 60-65%. Left ventricular diastolic function parameters a re normal. RIGHT VENTRICLE Normal right ventricular size and systolic function. LEFT ATRIUM The left atrial size is mildly dilated. RIGHT ATRIUM The right atrial size is normal. ATRIAL APPENDAGES Normal left atrial appendage size with no evidence of thrombus formation. ATRIAL SEPTUM Normal atrial septal thickness without atrial level shunting by limited color doppler interrogation. AORTA The aortic root and proximal ascending aorta are normal in size on limited imaging. MITRAL VALVE Mild thickening of the mitral valve leaflets. Moderate mitral valve regurgitation. AORTIC VALVE Trileaflet aortic valve. No aortic valve stenosis or regurgitation. TRICUSPID VALVE Mild thickening of the tricuspid valve leaflets. There is trace tricuspid valve regurgitation. VESSELS The inferior vena cava is normal in size. PULMONARY VALVE The pulmonary valve is not well visualized. PERICADIUM No pericardial effusion. Tae Russell MD, FACC (Electronically Signed) Final Date:09 January 2018 13:31
== END 2018-01-06 16:11 | disposition left against medical advice (07) ==
LOC: NEPE 17:04 → NEDA 17:04 → NEPGCP 23:37 → HCIS 01-06 10:00
PROVIDERS: ADMIT Hospitalist; ATTEND Hospitalist

== ENCOUNTER 2018-02-16 03:38 | Inpatient (IN) ==
--- NOTE | 2018-02-16 04:13 | ED ---
HPI General Chief Complaint: Chest Pain Stated Complaint: Cardiac Time Seen by Provider: 02/16/18 03:53 Source: patient and family Mode of arrival: ambulatory Limitations: no limitations History of Present Illness HPI narrative: 37-year-old female presents to the emergency department by private vehicle from home for evaluation of chest pain and not feeling well. Patient in triage was not able to provide any history but wants she was resting supine on ED exam stretcher reported having 7/10 chest pain nonradiating without shortness of breath nausea or vomiting and headache. Patient reports she has valvular heart disease and chronic anemia. Patient was recently hospitalized in December for chest pain and underwent evaluation with transesophageal echocardiogram that showed moderate mitral regurgitation and no vegetations on the valves and normal ejection fraction of 65 to have chronic anemia and uterine fibroids with patient was to have a cardiac catheterization but could not tolerate the beginning of the procedure and could not have enough sedation so the procedure was canceled. Patient had been hospitalized for similar complaints with some volume overload and valvular heart disease related heart failure in October at that time had undergone echo/[facility] in June which again showed moderate mitral regurgitation some thickening of the mitral valve without vegetation and normal ejection fraction and a nuclear stress test was done also in June which revealed no ischemia. Patient has done fairly well since discharge from the hospital after the December admission. Patient was drinking alcohol this evening when symptoms began. Patient is taken no medications denies any substance use tobacco use and denies marijuana use. Patient does not report any upper extremity lower extremity numbness to patient' s had no recent febrile illness. Patient's had no injury. No orthopnea no PND no dyspnea on exertion. No lower extremity pain or swelling. No febrile illness. MD complaint: Reports chest pain STEMI Alert: No Onset (ago): minute(s) Duration: constant and improved Onset: during rest Pain location: Reports substernal Severity: moderate Severity scale (1-10): 7 Quality: Reports tightness and dull Pain radiation: Reports none Relieving factors: nothing (Not take anything or attempt to take anything to alleviate symptoms) Exacerbating factors: other (Not able to describe exacerbating factors.) Context: Denies recent illness, recent immobilization and history of DVT/PE Associated symptoms: Denies nausea, vomiting, diaphoresis, dyspnea, sense of impending doom, syncope, palpitations, fever, cough and leg swelling Treatments prior to arrival chest pain: Reports none Related Data Home Medications Medication Instructions Recorded Confirmed atenolol 50 mg PO DAILY 11/06/17 01/05/18 cholecalciferol (vitamin D3) See Label Instructions .ROUTE 11/06/17 01/05/18 [Vitamin D3] .COMPLEX furosemide [Lasix] 20 mg PO DAILY 11/06/17 01/05/18 potassium chloride 10 meq PO DAILY 11/06/17 01/05/18 Previous Rx's Medication Instructions Recorded tramadol [Ultram] 50 mg PO Q8H PRN #15 tab 11/09/17 Allergies Allergy/AdvReac Type Severity Reaction Status Date / Time No Known Allergies Allergy Verified 01/05/18 17:49 Review of Systems ROS: all other systems reviewed are negative [facility] Medical History Medical History delivery delivered (Acute) HTN (hypertension) (Acute) Iron deficiency anemia due to chronic blood loss (Acute) Menorrhagia (Acute) Mitral regurgitation (Acute) Surgical History Surgical History No history of previous surgery (Acute) Social History Social History Substance History: No History of Abuse Second Hand Smoke Exposure: Yes Smoking Status: Current every day smoker Tobacco Type: Cigarettes How Often Do You Have a Drink Containing Alcohol: 4 or more times a week Immunization History Tetanus Immunization: >5 Years Exam Narrative Exam Narrative: GENERAL: Well-developed well-nourished female in no respiratory distress with generalized shaking upper extremities and lower extremities without seizure form activity, initially patient was nonverbal would not answer any questions and then spontaneously answer that she was having chest pain that she thought she was having a heart attack or having a stroke when she was at home. GCS at this time is 15. SKIN: Focused skin assessment warm/dry. HEAD: Atraumatic. Normocephalic. EYES: Pupils equal and round. No scleral icterus. No injection or drainage. ENT: No nasal bleeding or discharge. Mucous membranes pink and moist. NECK: Trachea midline. No JVD. CARDIOVASCULAR: Regular rate and rhythm. No murmur appreciated. RESPIRATORY: No accessory muscle use. Clear to auscultation. Breath sounds equal bilaterally. GASTROINTESTINAL: Abdomen soft, non-tender, nondistended. Hepatic and splenic margins not palpable. MUSCULOSKELETAL: No obvious deformities. No clubbing. No cyanosis. No edema. NEUROLOGICAL: Awake and alert. No obvious cranial nerve deficits. Motor grossly within normal limits. No limb ataxia. No pronator drift. Normal speech. PSYCHIATRIC: Appropriate mood and affect; insight and judgment normal. Course Initial Documented Vital Signs Temperature 99.0 F 02/16/18 03:45 Pulse Rate 116 H 02/16/18 03:45 Respiratory Rate 20 02/16/18 03:45 Blood Pressure 180/104 H 02/16/18 03:45 Pulse Oximetry 100 02/16/18 03:45 Last Documented Vital Signs Temperature 99.1 F 02/16/18 03:50 Pulse Rate 95 H 02/16/18 04:40 Respiratory Rate 18 02/16/18 04:40 Blood Pressure 154/82 H 02/16/18 04:40 Pulse Oximetry 100 02/16/18 04:40 Medical Decision Making MDM Narrative Medical decision making narrative: 37-year-old female presents not feeling well after drinking alcohol reportedly shaky and unwilling to answer any questions in triage was brought back immediately for assessment initially would not exhibit any effort to stand or transfer to the chair and then was able to help with standing and transferring to a stretcher initially would not answer questions and then spontaneously answers questions appropriately without any difficulty in speech no confusion and normal symmetric purposeful movement. Patient stating she was having chest pain and head pain and felt poorly. Blood sugar was 97. EKG was performed which revealed sinus tachycardia with no acute ST elevation or injury pattern or ectopy noted. Patient was placed on classroom monitor was noted to be hypertensive chest pain was reported to be 7/10 in intensity sublingual nitroglycerin administered for management of chest pain and for blood pressure management. Specimens collected and sent for resulting imaging studies ordered. Patient identified to have recurrent marked anemia hemoglobin 5.92 units of packed cells ordered to be transfused. Patient informed of lab results chest pain improved after sublingual nitroglycerin Chest x-ray reveals no acute process CT brain noncontrast reveals no acute process Serum alcohol is 6 Patient's case discussed with [facility] MD Dr Merino Medical Screen Exam Complete: Yes Emergency Medical Condition: Yes Differential Diagnosis Differential Diagnosis: Chest pain, anemia, atypical chest pain, ACS, AR, CHF, alcohol intoxication/ingestion, arrhythmia, anemia, PE, ams Medical Records Medical records reviewed: Yes I reviewed the patient's medical records. Lab Data Lab results reviewed: Yes I reviewed the patient's lab results. Result diagrams: 02/16/18 04:00 02/16/18 04:00 POC Results POC Urine Results Negative Lab Results 02/16/18 02/16/18 02/16/18 Range/Units 04:00 04:00 04:19 WBC 5.7 (4.0-11.0) th/mm3 RBC 3.07 L (4.00-5.30) mil/mm3 Hgb 5.9 L* (11.6-15.3) gm/dL Hct 20.5 L* (35.0-46.0) % MCV 66.6 L (80.0-100.0) fL MCH 19.1 L (27.0-34.0) pg MCHC 28.7 L (32.0-36.0) % RDW 19.8 H (11.6-17.2) % Plt Count 405 (150-450) th/mm3 MPV 7.1 (7.0-11.0) fL Prelim Diff (Auto) Slide review pending Neut % (Auto) 64.9 (16.0-70.0) % Lymph % (Auto) 23.9 (9.0-44.0) % [place] % (Auto) 10.2 H (0.0-8.0) % Eos % (Auto) 0.2 (0.0-4.0) % Baso % (Auto) 0.8 (0.0-2.0) % Neut # (Auto) 3.7 (1.8-7.7) th/mm3 Lymph # (Auto) 1.4 (1.0-4.8) th/mm3 [place] # (Auto) 0.6 (0.0-0.9) th/mm3 Eos # (Auto) 0.0 (0.0-0.4) th/mm3 Baso # (Auto) 0.0 (0.0-0.2) th/mm3 WBC Differential . Diff Scan Auto diff confirmed Differential Comment . Platelet Estimate Normal (Normal) Platelet Morphology Normal (Normal) Polychromasia 2.3 H (0.0-1.9) % Ovalocytes 1+ H (None) Keratocytes Occ H (None) PT (9.8-11.6) sec INR Ratio APTT (24.3-30.1) sec D-Dimer Quant (PE/DVT) 0.30 (0.00-0.50) mg/L FEU Sodium 141 (136-145) meq/L Potassium 3.2 L (3.5-5.1) meq/L Chloride 107 (98-107) meq/L Carbon Dioxide 24.7 (21.0-32.0) meq/L Anion Gap 9 (5-15) meq/L BUN 12 (7-18) mg/dL Creatinine 1.00 (0.50-1.00) mg/dL Estimated GFR 76 L (>89) mL/min Random Glucose 88 (74-106) mg/dL Calcium 8.1 L (8.5-10.1) mg/dL Magnesium 2.0 (1.5-2.5) mg/dL Total Bilirubin 0.1 L (0.2-1.0) mg/dL AST 11 L (15-37) U/L ALT 17 (10-53) U/L Alkaline Phosphatase 47 (45-117) U/L Total Creatine Kinase 159 (26-192) U/L CK-MB (CK-2) Less than 1.0 (0.5-3.6) ng/mL Troponin I Less than 0.02 L (0.02-0.05) ng/mL Total Protein 7.0 (6.4-8.2) g/dL Albumin 3.8 (3.4-5.0) g/dL Lipase 89 (73-393) U/L Urine Color (Yellw/Straw) Urine Clarity (Clear) Urine pH (5.0-8.5) Ur Specific [place] (1.002-1.035) Urine Protein (Neg-Trace) mg/dL Urine Glucose (UA) (Negative) mg/dL Urine Ketones (Negative) mg/dL Urine Occult Blood (Negative) Urine Nitrate (Negative) Urine Bilirubin (Negative) Urine Urobilinogen (Less than 2) mg/dL Ur Leukocyte Esterase (Negative) Urine RBC (0-3) /hpf Urine WBC (0-5) /hpf Ur Squamous Epith Cells (0-5) /hpf Urine Bacteria (None) /hpf Micro UA Comment Ur Microscopic Review Urine Culture Comments Urine Opiates Screen (Neg) Ur Barbiturates Screen (Neg) Ur Amphetamines Screen (Neg) U Benzodiazepines Scrn (Neg) Urine Cocaine Screen (Neg) U Cannabinoids Screen (Neg) Serum Alcohol 6 H (0-5) mg/dL Blood Type MTS Gel Crossmatch 02/16/18 02/16/18 02/16/18 Range/Units 04:19 04:45 04:45 WBC (4.0-11.0) th/mm3 RBC (4.00-5.30) mil/mm3 Hgb (11.6-15.3) gm/dL Hct (35.0-46.0) % MCV (80.0-100.0) fL MCH (27.0-34.0) pg MCHC (32.0-36.0) % RDW (11.6-17.2) % Plt Count (150-450) th/mm3 MPV (7.0-11.0) fL Prelim Diff (Auto) Neut % (Auto) (16.0-70.0) % Lymph % (Auto) (9.0-44.0) % [place] % (Auto) (0.0-8.0) % Eos % (Auto) (0.0-4.0) % Baso % (Auto) (0.0-2.0) % Neut # (Auto) (1.8-7.7) th/mm3 Lymph # (Auto) (1.0-4.8) th/mm3 [place] # (Auto) (0.0-0.9) th/mm3 Eos # (Auto) (0.0-0.4) th/mm3 Baso # (Auto) (0.0-0.2) th/mm3 WBC Differential Diff Scan Differential Comment Platelet Estimate (Normal) Platelet Morphology (Normal) Polychromasia (0.0-1.9) % Ovalocytes (None) Keratocytes (None) PT 10.7 (9.8-11.6) sec INR 1.1 Ratio APTT 23.9 L (24.3-30.1) sec D-Dimer Quant (PE/DVT) (0.00-0.50) mg/L FEU Sodium (136-145) meq/L Potassium (3.5-5.1) meq/L Chloride (98-107) meq/L Carbon Dioxide (21.0-32.0) meq/L Anion Gap (5-15) meq/L BUN (7-18) mg/dL Creatinine (0.50-1.00) mg/dL Estimated GFR (>89) mL/min Random Glucose (74-106) mg/dL Calcium (8.5-10.1) mg/dL Magnesium (1.5-2.5) mg/dL Total Bilirubin (0.2-1.0) mg/dL AST (15-37) U/L ALT (10-53) U/L Alkaline Phosphatase (45-117) U/L Total Creatine Kinase (26-192) U/L CK-MB (CK-2) (0.5-3.6) ng/mL Troponin I (0.02-0.05) ng/mL Total Protein (6.4-8.2) g/dL Albumin (3.4-5.0) g/dL Lipase (73-393) U/L Urine Color Colorless (Yellw/Straw) Urine Clarity Clear (Clear) Urine pH 7.0 (5.0-8.5) Ur Specific [place] 1.003 (1.002-1.035) Urine Protein Negative (Neg-Trace) mg/dL Urine Glucose (UA) Negative (Negative) mg/dL Urine Ketones Negative (Negative) mg/dL Urine Occult Blood Negative (Negative) Urine Nitrate Negative (Negative) Urine Bilirubin Negative (Negative) Urine Urobilinogen Less than 2 (Less than 2) mg/dL Ur Leukocyte Esterase Negative (Negative) Urine RBC Less than 1 (0-3) /hpf Urine WBC Less than 1 (0-5) /hpf Ur Squamous Epith Cells <1 (0-5) /hpf Urine Bacteria Rare H (None) /hpf Micro UA Comment Culture not ind Ur Microscopic Review Not Reportable Urine Culture Comments Culture not ind Urine Opiates Screen Neg (Neg) Ur Barbiturates Screen Neg (Neg) Ur Amphetamines Screen Neg (Neg) U Benzodiazepines Scrn Neg (Neg) Urine Cocaine Screen Neg (Neg) U Cannabinoids Screen Neg (Neg) Serum Alcohol (0-5) mg/dL Blood Type MTS Gel Crossmatch 02/16/18 Range/Units 04:50 WBC (4.0-11.0) th/mm3 RBC (4.00-5.30) mil/mm3 Hgb (11.6-15.3) gm/dL Hct (35.0-46.0) % MCV (80.0-100.0) fL MCH (27.0-34.0) pg MCHC (32.0-36.0) % RDW (11.6-17.2) % Plt Count (150-450) th/mm3 MPV (7.0-11.0) fL Prelim Diff (Auto) Neut % (Auto) (16.0-70.0) % Lymph % (Auto) (9.0-44.0) % [place] % (Auto) (0.0-8.0) % Eos % (Auto) (0.0-4.0) % Baso % (Auto) (0.0-2.0) % Neut # (Auto) (1.8-7.7) th/mm3 Lymph # (Auto) (1.0-4.8) th/mm3 [place] # (Auto) (0.0-0.9) th/mm3 Eos # (Auto) (0.0-0.4) th/mm3 Baso # (Auto) (0.0-0.2) th/mm3 WBC Differential Diff Scan Differential Comment Platelet Estimate (Normal) Platelet Morphology (Normal) Polychromasia (0.0-1.9) % Ovalocytes (None) Keratocytes (None) PT (9.8-11.6) sec INR Ratio APTT (24.3-30.1) sec D-Dimer Quant (PE/DVT) (0.00-0.50) mg/L FEU Sodium (136-145) meq/L Potassium (3.5-5.1) meq/L Chloride (98-107) meq/L Carbon Dioxide (21.0-32.0) meq/L Anion Gap (5-15) meq/L BUN (7-18) mg/dL Creatinine (0.50-1.00) mg/dL Estimated GFR (>89) mL/min Random Glucose (74-106) mg/dL Calcium (8.5-10.1) mg/dL Magnesium (1.5-2.5) mg/dL Total Bilirubin (0.2-1.0) mg/dL AST (15-37) U/L ALT (10-53) U/L Alkaline Phosphatase (45-117) U/L Total Creatine Kinase (26-192) U/L CK-MB (CK-2) (0.5-3.6) ng/mL Troponin I (0.02-0.05) ng/mL Total Protein (6.4-8.2) g/dL Albumin (3.4-5.0) g/dL Lipase (73-393) U/L Urine Color (Yellw/Straw) Urine Clarity (Clear) Urine pH (5.0-8.5) Ur Specific [place] (1.002-1.035) Urine Protein (Neg-Trace) mg/dL Urine Glucose (UA) (Negative) mg/dL Urine Ketones (Negative) mg/dL Urine Occult Blood (Negative) Urine Nitrate (Negative) Urine Bilirubin (Negative) Urine Urobilinogen (Less than 2) mg/dL Ur Leukocyte Esterase (Negative) Urine RBC (0-3) /hpf Urine WBC (0-5) /hpf Ur Squamous Epith Cells (0-5) /hpf Urine Bacteria (None) /hpf Micro UA Comment Ur Microscopic Review Urine Culture Comments Urine Opiates Screen (Neg) Ur Barbiturates Screen (Neg) Ur Amphetamines Screen (Neg) U Benzodiazepines Scrn (Neg) Urine Cocaine Screen (Neg) U Cannabinoids Screen (Neg) Serum Alcohol (0-5) mg/dL Blood Type O Positive MTS Gel Crossmatch See Detail Imaging Data Radiologist's impression: Chest X-Ray 02/16/18 03:53 CONCLUSION: No acute cardiopulmonary process. Head CT 02/16/18 04:01 CONCLUSION: Negative noncontrast head CT. . ECG Data EKG Prior to Arrival: No Interpretation: EKG: Sinus tachycardia rate [address] elevation injury pattern or ectopy noted Discharge Plan Discharge Disposition Patient Disposition: 30 Still Patient Discharge Condition Condition: Stable Discharge Details Diagnosis: Symptomatic anemia, Chest pain Physicians Team ED Provider: Riana Monreal Primary Care Provider: Primary Care Lauren Devlin Rxs /Orders / Referrals /Forms Prescriptions: No Action potassium chloride 10 mEq Capsule, Extended Release 10 meq PO DAILY RF: 0 furosemide [Lasix] 20 mg Tablet 20 mg PO DAILY RF: 0 atenolol 50 mg Tablet 50 mg PO DAILY RF: 0 cholecalciferol (vitamin D3) [Vitamin D3] 1,000 unit Capsule See Label Instructions .ROUTE .COMPLEX RF: 0 tramadol [Ultram] 50 mg tablet 50 mg PO Q8H PRN (Reason: Acute pain) Qty: 15 RF: 0 Discharge Instructions Patient Printed Instructions: Chest Pain (ED) Discharge Interventions Interventions: Vital Signs Last Done: 02/16/18 03:50 Status ED Status: With Doctor
[2018-02-16 04:20] LABS: Baso % (Auto) 0.8 % (0.0-2.0); Eos % (Auto) 0.2 % (0.0-4.0); Lymph # (Auto) 1.4 th/mm3 (1.0-4.8); Lymph % (Auto) 23.9 % (9.0-44.0); Mean Corpuscular Hemoglobin 19.1 pg (27.0-34.0); Mean Corpuscular Volume 66.6 fL (80.0-100.0); Mean Platelet Volume 7.1 fL (7.0-11.0); Mono # (Auto) 0.6 th/mm3 (0.0-0.9); Mono % (Auto) 10.2 % (0.0-8.0); Neut # (Auto) 3.7 th/mm3 (1.8-7.7); Neut % (Auto) 64.9 % (16.0-70.0); Platelet Count 405 th/mm3 (150-450); Red Blood Count 3.07 mil/mm3 (4.00-5.30); Red Cell Distribution Width 19.8 % (11.6-17.2); White Blood Count 5.7 th/mm3 (4.0-11.0)
[2018-02-16 04:29] LABS: Alanine Aminotransferase 17 U/L (10-53); Albumin 3.8 g/dL (3.4-5.0); Anion Gap 9 meq/L (5-15); Aspartate Aminotransferase 11 U/L (15-37); Blood Urea Nitrogen 12 mg/dL (7-18); Calcium 8.1 mg/dL (8.5-10.1); Carbon Dioxide 24.7 meq/L (21.0-32.0); Chloride 107 meq/L (98-107); Glomerular Filtration Rate 76 mL/min (>89); Glucose,Random 88 mg/dL (74-106); Lipase 89 U/L (73-393); Potassium 3.2 meq/L (3.5-5.1); Sodium 141 meq/L (136-145)
[2018-02-16 04:32] LABS: Alkaline Phosphatase 47 U/L (45-117); Creatine Kinase 159 U/L (26-192); Mean Corpuscular HGB Conc 28.7 % (32.0-36.0)
[2018-02-16 04:37] LABS: Alcohol 6 mg/dL (0-5)
[2018-02-16 04:38] LABS: Hematocrit 20.5 % (35.0-46.0); Hemoglobin 5.9 gm/dL (11.6-15.3)
--- NOTE | 2018-02-16 04:41 | XR ---
EXAM DATE: 02/16/2018 3:53 AM EDT AGE/SEX: 37 years / Female INDICATIONS: Chest pain starting today CLINICAL DATA: This is the patient's initial encounter. Patient reports that signs and symptoms have been present for 1 day and indicates a pain score of 10/10. MEDICAL/SURGICAL HISTORY: . Heart murmur, leaky valve. None. COMPARISON: No prior exams available for comparison. FINDINGS: A single AP view of the chest demonstrates the lungs to be symmetrically aerated without evidence of mass, infiltrate or effusion. The cardiomediastinal contours are unremarkable. Osseous structures a re intact. CONCLUSION: No acute cardiopulmonary process. Electronically signed by: Melvin Ralph MD 02/16/2018 4:40 AM EDT
[2018-02-16] MEDS ORDERED: Morphine Inj 4 MG/ML Vial IV.PUSH ONE (04:51)
[2018-02-16 05:11] LABS: Bacteria,Urine Rare /hpf; Bilirubin,Urine Negative (Negative); Clarity,Urine Clear (Clear); Color,Urine Colorless (Yellw/Straw); Glucose,Urine (UA) Negative (Negative); Leukocyte Esterase,Urine Negative (Negative); Nitrite,Urine Negative (Negative); Specific Gravity,Urine 1.003 (1.002-1.035); Squamous Epithelial Cell,Urine <1 /hpf (0-5)
[2018-02-16 05:16] LABS: Amphetamine Screen,Urine Neg (Neg); Barbiturate Screen,Urine Neg (Neg); Cannabinoid Screen,Urine Neg (Neg); Cocaine Screen,Urine Neg (Neg)
[2018-02-16 05:19] LABS: Opiate Screen,Urine Neg (Neg)
[2018-02-16 05:23] LABS: Activated Partial Thrombo Time 23.9 sec (24.3-30.1); INR 1.1 Ratio; Prothrombin Time 10.7 sec (9.8-11.6)
[2018-02-16] MEDS: Sod Chloride 0.9% Inj 1,000 ML IV.CONT SCH (05:36)
--- NOTE | 2018-02-16 05:48 | CT ---
EXAM DATE: 02/16/2018 4:07 AM EDT AGE/SEX: 37 years / Female INDICATIONS: Altered mental status. CLINICAL DATA: This is the patient's initial encounter. Patient reports that signs and symptoms have been present for 1 day and indicates a pain score of 0/10. MEDICAL/SURGICAL HISTORY: Cardiovascular disease. Hypertension. None. RADIATION DOSE: 56.35 CTDI (mGy) COMPARISON: No prior exams available for comparison. TECHNIQUE: CT of the head without contrast. Using automated exposure control and adjustment of the mA and/or kV according to patient size, radiation dose was kept as low as reasonably achievable to ob tain optimal diagnostic quality images. DICOM format image data is available electronically for revi ew and comparison. FINDINGS: Cerebrum: The ventricles are normal for age. No evidence of midline shift, mass lesion, hemorrhage or acute infarction. No extraaxial fluid collections are seen. Posterior Fossa: The cerebellum and brainstem are intact. The 4th ventricle is midline. The cerebe llopontine angle is unremarkable. Extracranial: The visualized portion of the orbits is intact. Skull: The calvaria is intact. No evidence of skull fracture. CONCLUSION: Negative noncontrast head CT. . Electronically signed by: Melvin Ralph MD 02/16/2018 5:47 AM EDT
[2018-02-16 06:02] LABS: Ovalocytes 1+
[2018-02-16 06:03] LABS: Platelet Estimate Normal (Normal); Platelet Morphology Normal (Normal)
[2018-02-16 06:04] LABS: Polychromasia 2.3 % (0.0-1.9)
[2018-02-16] MEDS ORDERED: Temazepam 15 MG Capsule PO PRN (06:07)
[2018-02-16] MEDS ORDERED: Acetaminophen 325 MG Tablet PO PRN (06:07)
[2018-02-16] MEDS ORDERED: LORazepam 1 MG Tablet PO PRN (06:12)
[2018-02-16] MEDS ORDERED: Haloperidol Inj 5 MG/ML Ampul IV.PUSH PRN (06:12)
[2018-02-16] MEDS: Senna/Docusate Sodium 8.6/50 MG Tablet PO SCH (09:13)
--- NOTE | 2018-02-16 09:14 | P.CONOB ---
History of Present Illness Consult date: 02/16/18 Reason for Consult: anemia secondary to heavy menses Primary Care Physician: No Primary Care Physician Chief Complaint: chest pain History of Present Illness: Patient is a 37-year-old with a history of 2 deliveries and a bilateral tubal ligation who presented with chest pain and was found to be anemic. We were consulted due to the anemia in with a history of heavy menses. She describes a long history of heavy and painful periods. They are typically regular, however she does sometimes have breakthrough bleeding. She also has a history of fibroids, last ultrasound was in October of this year showed 4.7 cm fibroid and was otherwise negative. She has a history of 2 deliveries and no other surgical history. She is followed by a PCP, but not a [facility] physician. She does not use any hormones and reports no attempted treatments for her heavy menses. Also of note she has a history of alcohol use and was found drinking in triage. Para: 4 : 4 Last menstrual period: last week Review of Systems All other systems reviewed negative except as stated in HPI Ears, Nose, Mouth, and Throat: Reports headache(s) Cardiovascular: Reports chest pain, Denies shortness of breath Respiratory: Reports cough Gastrointestinal: Denies nausea, Denies vomiting PMFSH - History History Provided By: Patient - Medical History Medical History: Medical History (Last Reviewed 02/16/18 @ 04:19 by Riana Monreal MD) delivery delivered HTN (hypertension) Iron deficiency anemia due to chronic blood loss Menorrhagia Mitral regurgitation - Surgical History Surgical History: Surgical History (Last Reviewed 02/16/18 @ 04:19 by Riana Monreal MD) No history of previous surgery - Tobacco History Second Hand Smoke Exposure: Yes Tobacco Use In Past 30 Days: Yes Smoking Status: Current every day smoker Tobacco Type: Cigarettes - Alcohol History How Often Do You Have a Drink Containing Alcohol: 4 or more times a week - Substance Use History Substance History: No History of Abuse - Immunization History Tetanus Immunization: >5 Years Medications and Allergies Active Medications: Active Medications Acetaminophen (Tylenol) 650 mg PO Q4H PRN PRN Reason: Temp > 100.4 Al Hydroxide/Mg Hydroxide (Milk Of Magnesia Liq) 30 ml PO Q12H PRN PRN Reason: Mild Constipation Flumazenil (Romazecon Inj) 0.2 mg IV.PUSH Q1M PRN PRN Reason: OVERSEDATION Haloperidol Lactate (Haldol Inj) 1 mg IV.PUSH Q15M PRN PRN Reason: for severe agitation Sodium Chloride (Ns Inj) 1,000 mls @ 100 mls/hr IV.CONT .Q10H GALILEO Last Admin: 02/16/18 05:36 Dose: 100 mls/hr Lorazepam (Ativan) 1 mg PO Q4H PRN PRN Reason: for CIWA 8-10 Lorazepam (Ativan) 2 mg PO Q2H PRN PRN Reason: for CIWA 11-14 Lorazepam (Ativan Inj) 2 mg IV.PUSH Q2H PRN PRN Reason: for CIWA 11-14 Lorazepam (Ativan Inj) 2 mg IV.PUSH Q1H PRN PRN Reason: for CIWA 15-20 Lorazepam (Ativan Inj) 2 mg IV.PUSH Q15M PRN PRN Reason: for CIWA > 20 Lorazepam (Ativan Inj) 1 mg IV.PUSH Q4H PRN PRN Reason: for CIWA 8-10 Lorazepam (Ativan Inj) 1 mg IV.PUSH Q4H PRN PRN Reason: AGITATION Ondansetron HCl (Zofran Inj) 4 mg IV.PUSH Q6H PRN PRN Reason: NAUSEA OR VOMITING Senna/Docusate Sodium (Kamilah-Colace) 1 tab PO BID GALILEO Sodium Chloride (Ns Flush) 2 ml IV.FLUSH UNSCH PRN PRN Reason: FLUSH AFTER USING IV ACCESS Temazepam (Restoril) 15 mg PO HS PRN PRN Reason: INSOMNIA Allergies Allergy/AdvReac Type Severity Reaction Status Date / Time No Known Allergies Allergy Verified 01/05/18 17:49 Home Medications Medication Instructions Recorded Confirmed Type atenolol 50 mg PO DAILY 11/06/17 02/16/18 History furosemide [Lasix] 20 mg PO DAILY 11/06/17 02/16/18 History potassium chloride 10 meq PO ONCE 11/06/17 02/16/18 History Exam Vital signs: Vital Signs 02/16/18 03:45 02/16/18 03:50 02/16/18 04:40 Temperature 99.0 F 99.1 F Pulse Rate 116 H 108 H 95 H Respiratory Rate 20 18 18 Blood Pressure 180/104 H 180/104 H 154/82 H Pulse Oximetry 100 100 100 02/16/18 08:00 Temperature 98 F Pulse Rate 81 Respiratory Rate 16 Blood Pressure 130/74 Pulse Oximetry 100 Intake & Output 02/15/18 02/16/18 02/16/18 18:59 06:59 18:59 Weight 83.915 kg Narrative: General: Alert, well appearing, in no acute distress Skin: Warm and dry Pulmonary: No increased work of breathing. Abdominal: Non-tender. Uterus anteflexed at 12 weeks size, nontender and w/o adnexal masses or pain Genitourinary: External Genitalia: intact and normal in appearance, no blood in the vagina Results - Labs CBC & Chem 7: 02/16/18 04:00 02/16/18 04:00 Labs: Laboratory Results - last 24 hr 02/16/18 02/16/18 02/16/18 04:00 04:00 04:19 WBC 5.7 RBC 3.07 L Hgb 5.9 L* Hct 20.5 L* MCV 66.6 L MCH 19.1 L MCHC 28.7 L RDW 19.8 H Plt Count 405 MPV 7.1 Prelim Diff (Auto) Slide review pending Neut % (Auto) 64.9 Lymph % (Auto) 23.9 [place] % (Auto) 10.2 H Eos % (Auto) 0.2 Baso % (Auto) 0.8 Neut # (Auto) 3.7 Lymph # (Auto) 1.4 [place] # (Auto) 0.6 Eos # (Auto) 0.0 Baso # (Auto) 0.0 WBC Differential . Diff Scan Auto diff confirmed Differential Comment . Platelet Estimate Normal Platelet Morphology Normal Polychromasia 2.3 H Ovalocytes 1+ H Keratocytes Occ H PT INR APTT D-Dimer Quant (PE/DVT) 0.30 Sodium 141 Potassium 3.2 L Chloride 107 Carbon Dioxide 24.7 Anion Gap 9 BUN 12 Creatinine 1.00 Estimated GFR 76 L POC Glucose Random Glucose 88 Calcium 8.1 L Magnesium 2.0 Total Bilirubin 0.1 L AST 11 L ALT 17 Alkaline Phosphatase 47 Total Creatine Kinase 159 CK-MB (CK-2) Less than 1.0 Troponin I Less than 0.02 L Total Protein 7.0 Albumin 3.8 Lipase 89 Urine Color Urine Clarity Urine pH Ur Specific Nicholson Urine Protein Urine Glucose (UA) Urine Ketones Urine Occult Blood Urine Nitrate Urine Bilirubin Urine Urobilinogen Ur Leukocyte Esterase Urine RBC Urine WBC Ur Squamous Epith Cells Urine Bacteria Micro UA Comment Ur Microscopic Review Urine Culture Comments Urine Opiates Screen Ur Barbiturates Screen Ur Amphetamines Screen U Benzodiazepines Scrn Urine Cocaine Screen U Cannabinoids Screen Serum Alcohol 6 H Blood Type Blood Type Recheck Antibody Screen MTS Gel Crossmatch 02/16/18 02/16/18 02/16/18 04:19 04:45 04:45 WBC RBC Hgb Hct MCV MCH MCHC RDW Plt Count MPV Prelim Diff (Auto) Neut % (Auto) Lymph % (Auto) [place] % (Auto) Eos % (Auto) Baso % (Auto) Neut # (Auto) Lymph # (Auto) [place] # (Auto) Eos # (Auto) Baso # (Auto) WBC Differential Diff Scan Differential Comment Platelet Estimate Platelet Morphology Polychromasia Ovalocytes Keratocytes PT 10.7 INR 1.1 APTT 23.9 L D-Dimer Quant (PE/DVT) Sodium Potassium Chloride Carbon Dioxide Anion Gap BUN Creatinine Estimated GFR POC Glucose Random Glucose Calcium Magnesium Total Bilirubin AST ALT Alkaline Phosphatase Total Creatine Kinase CK-MB (CK-2) Troponin I Total Protein Albumin Lipase Urine Color Colorless Urine Clarity Clear Urine pH 7.0 Ur Specific Nicholson 1.003 Urine Protein Negative Urine Glucose (UA) Negative Urine Ketones Negative Urine Occult Blood Negative Urine Nitrate Negative Urine Bilirubin Negative Urine Urobilinogen Less than 2 Ur Leukocyte Esterase Negative Urine RBC Less than 1 Urine WBC Less than 1 Ur Squamous Epith Cells <1 Urine Bacteria Rare H Micro UA Comment Culture not ind Ur Microscopic Review Not Reportable Urine Culture Comments Culture not ind Urine Opiates Screen Neg Ur Barbiturates Screen Neg Ur Amphetamines Screen Neg U Benzodiazepines Scrn Neg Urine Cocaine Screen Neg U Cannabinoids Screen Neg Serum Alcohol Blood Type Blood Type Recheck Antibody Screen MTS Gel Crossmatch 02/16/18 02/16/18 04:50 08:08 WBC RBC Hgb Hct MCV MCH MCHC RDW Plt Count MPV Prelim Diff (Auto) Neut % (Auto) Lymph % (Auto) [place] % (Auto) Eos % (Auto) Baso % (Auto) Neut # (Auto) Lymph # (Auto) [place] # (Auto) Eos # (Auto) Baso # (Auto) WBC Differential Diff Scan Differential Comment Platelet Estimate Platelet Morphology Polychromasia Ovalocytes Keratocytes PT INR APTT D-Dimer Quant (PE/DVT) Sodium Potassium Chloride Carbon Dioxide Anion Gap BUN Creatinine Estimated GFR POC Glucose 100 Random Glucose Calcium Magnesium Total Bilirubin AST ALT Alkaline Phosphatase Total Creatine Kinase CK-MB (CK-2) Troponin I Total Protein Albumin Lipase Urine Color Urine Clarity Urine pH Ur Specific Nicholson Urine Protein Urine Glucose (UA) Urine Ketones Urine Occult Blood Urine Nitrate Urine Bilirubin Urine Urobilinogen Ur Leukocyte Esterase Urine RBC Urine WBC Ur Squamous Epith Cells Urine Bacteria Micro UA Comment Ur Microscopic Review Urine Culture Comments Urine Opiates Screen Ur Barbiturates Screen Ur Amphetamines Screen U Benzodiazepines Scrn Urine Cocaine Screen U Cannabinoids Screen Serum Alcohol Blood Type O Positive Blood Type Recheck Not needed Antibody Screen Positive H MTS Gel Crossmatch See Detail - Imaging Impressions Chest X-Ray 02/16/18 03:53 CONCLUSION: No acute cardiopulmonary process. Head CT 02/16/18 04:01 CONCLUSION: Negative noncontrast head CT. . Assessment and Plan - Plan 37 year old female who presented with chest pain and anemia who has a history of heavy menses and a uterine fibroid Anemia secondary to heavy menses/fibroid -US of the pelvis (transvaginal) -Continue medical management until medically stable -Progesterone 300 IM before discharge and q3 months afterwards, avoid estrogen due to her smoking history. There is no active bleeding at this time and it is not urgent that this be given. We recommend waiting until more stable/feeling better. -Needs outpatient follow up with [facility] or family medicine We appreciate your consultation and will follow along with you
--- NOTE | 2018-02-16 10:39 | US ---
EXAM DATE: 02/16/2018 12:00 AM EDT AGE/SEX: 37 years / Female INDICATIONS: Fibroids. CLINICAL DATA: This is the patient's subsequent encounter. Patient reports that signs and symptoms h ave been present for 1 day and indicates a pain score of 8/10. MEDICAL/SURGICAL HISTORY: Hypertension. . Iron deficiency anemia due to chronic blood loss. Menorrhagia. Mitral regurgitation. None. COMPARISON: [facility] – [place] [facility], 11/07/2017. . MEASUREMENTS: Uterus:__12.4 x 8.1 x 6.0 cm Endometrial Stripe:__5 mm Right Ovary:__ 3.0 x 3.9 x 4.2 cm Left Ovary:__ 3.0 x 2.9 x 1.6 cm FINDINGS: Uterus: Heterogeneously hypoechoic mid uterine myometrial mass measuring 4.8 x 4.4 x 5.8 cm in armando rison to 4.6 x 4.7 x 4.0 cm on prior exam. Uterus is otherwise unremarkable. Endometrial Stripe: The endometrial stripe displays homogeneous echotexture. Right Ovary: Ovary contains no mass or significant cystic lesion. Left Ovary: Small 2.3 x 1.7 x 1.6 cm anechoic cyst. Ovary contains no mass. Follicles are present. Fluid: No free fluid. Other: None. CONCLUSION: 1. Interval enlargement of suspected mid uterine leiomyoma now measuring up to 5.8 cm in comparison to 4.7 cm on prior exam. 2. Small 2.3 cm left ovarian cyst. This is almost certainly benign. Electronically signed by: Kendrick Marsh MD 02/16/2018 10:38 AM EDT
--- NOTE | 2018-02-16 13:23 | ECG ---
Date Performed: 02/16/2018 Time Performed: 03:53:02 PTAGE: 37 years EKG: SINUS TACHYCARDIA ABNORMAL RHYTHM ECG Rate has increased since prior tracing otherwise larg donis unchanged PREVIOUS TRACING : 01/06/18 DOCTOR: Markus Laughlin Interpretating Date/Time 02/16/2018 13:22:15
[2018-02-16] MEDS ORDERED: guaiFENesin/Dextromethorphan 200 MG/20 MG 10 ML UDC PO PRN (16:59)
--- NOTE | 2018-02-16 18:22 | P.HPIM ---
History of Present Illness Primary Care Physician: No Primary Care Physician Chief Complaint: chest pain History of Present Illness: Patient is a 37-year-old female recently hospitalized at [facility] in mid December with complaint of chest pain. Patient underwent transesophageal echocardiogram (01/06/18) which showed moderate mitral valve regurgitation. Patient had a Lexiscan June 2017. for myocardial ischemia. Patient has been seen by cardiology during previous hospitalization, Dr. Jamie Hwang. Heart catheterization was attempted. However, patient was unable to tolerate the procedure. Cardiology recommended coronary CTA to further evaluate the coronary anatomy. Patient left AMA. Patient return to the ER 02/16/18 with complaint of 7/10 chest pain. Patient denied diaphoresis, nausea, vomiting, or shortness of breath. Patient has a long history of heavy and painful periods. They are typically regular, however she does sometimes have breakthrough bleeding. She also has a history of fibroids, last ultrasound was in October of this year showed 4.7 cm fibroid and was otherwise negative. Also of note she has a history of alcohol use and was drinking alcohol prior to admission. Workup in the ER revealed a Hemoglobin of 5.9. 2 units of PRBCs were ordered. Patient admitted to [facility] for further evaluation and treatment. PMH: - Mitral valve regurgitation, moderate - Hypertension - Iron deficiency anemia due to chronic blood loss - Menorrhagia - Uterine fibroids PSH: -Bilateral tubal ligation FHX: -Noncontributory SHX: - Current smoker - Drinks alcohol, drinking alcohol prior to this admission - Denies illicit drug use ALL: NKDA - Diagnosis (1) Chest wall pain (2) Microcytic hypochromic anemia (3) DUB (dysfunctional uterine bleeding) (4) HTN (hypertension) (5) Valvular heart disease (6) Mitral valve regurgitation (7) Intramural and submucous leiomyoma of uterus (8) Symptomatic anemia Inpatient Certification: I certify that the inpatient services were ordered in accordance with Medicare regulations governing the order. This includes certification that hospital inpatient services are reasonable and necessary and in the case of services not specified as inpatient-only under 42 CFR 419.22(n), that they are appropriately provided as inpatient services in accordance to with the 2-midnight benchmark under 43 CFR 412.3(e) Estimated Total Length of Stay (Days): 3 Plans for Post Hospital Care: Home Review of Systems Constitutional: Denies anorexia, Denies body ache(s), Denies chills, Denies fever(s), Denies night sweats, Denies poor appetite, Denies weight gain, Denies weight loss Eyes: Denies blind spots, Denies blurry vision, Denies change in vision, Denies double vision, Denies discharge, Denies loss of peripheral vision, Denies loss of vision, Denies other visual disturbances, Denies pain Ears, Nose, Mouth, and Throat: Denies bleeding gums, Denies difficulty swallowing, Denies dizziness, Denies headache(s), Denies hearing loss, Denies pain with swallowing, Denies poor balance, Denies ringing in the ears, Denies sore throat, Denies throat swelling, Denies tongue swelling Cardiovascular: Reports chest pain, Denies excessive sweating, Denies fainting, Denies fast heart rate, Denies generalized swelling, Denies irregular heart rhythm, Denies leg swelling, Denies lightheadedness, Denies slow heart rate Respiratory: Denies cough, Denies shortness of breath, Denies snoring, Denies wheezing Gastrointestinal: Denies abdominal pain, Denies belching, Denies black, tarry stools, Denies bright, red blood in stools, Denies change in bowel habits, Denies change in stools, Denies coffee ground vomit, Denies constipation, Denies cramping, Denies difficulty swallowing, Denies heartburn, Denies incontinent of stools, Denies loose stools, Denies nausea, Denies pain with swallowing, Denies vomiting, Denies vomiting blood Genitourinary: Denies abnormal vaginal bleeding, Denies blood in urine, Denies difficulty starting urination, Denies difficulty urinating, Denies frequent nighttime urination, Denies painful urination, Denies pelvic pain, Denies side pain, Denies urinary incontinence, Denies urinary hesitancy, Denies urinary urgency Musculoskeletal: Denies abnormal walking, Denies back pain, Denies body aches, Denies decreased muscle mass, Denies joint pain, Denies joint swelling, Denies muscle weakness, Denies neck pain, Denies numbness, Denies stiffness, Denies tingling Skin/Breast: Denies bleeding lesions, Denies change in skin color, Denies changing lesions, Denies itching, Denies lesions, Denies new lesions, Denies non -healing lesions, Denies redness, Denies sensitivity to light, Denies rash, Denies skin pain, Denies skin swelling, Denies skin ulcer, Denies sores, Denies unusual bruising, Denies wounds, Denies yellowing of the skin Neurologic: Denies abnormal hearing, Denies abnormal movements, Denies abnormal speech, Denies abnormal walking, Denies behavioral changes, Denies burning sensations, Denies confusion, Denies dizziness, Denies fainting, Denies frequent falls, Denies headache(s), Denies lack of coordination, Denies localized weakness, Denies loss of vision, Denies memory loss, Denies numbness, Denies other visual disturbances, Denies radiating pain, Denies restless legs, Denies convulsions, Denies seizure-like activity, Denies sensory deficit, Denies tingling/numbness/burning sensations, Denies tremor(s), Denies unsteadiness, Denies weakness Psychiatric: Denies abnormal sleep pattern, Denies anxiety, Denies behavioral changes, Denies change in appetite, Denies confusion, Denies depression, Denies difficulty concentrating, Denies hearing things others do not hear, Denies irritability, Denies lack of enjoyment, Denies memory loss, Denies mood swings, Denies panic attacks, Denies paranoia, Denies seeing things others do not see, Denies thoughts of hurting/killing others, Denies thoughts of hurting/killing yourself Endocrine: Denies cold intolerance, Denies excessive sweating, Denies fatigue, Denies flushing, Denies heat intolerance, Denies increased hunger, Denies increased thirst, Denies increased urination, Denies rapid, pounding, or irregular heartbeat Hematologic/Lymphatic: Denies easy bleeding, Denies easy bruising, Denies enlarged lymph nodes Allergic/Immunologic: Denies hives, Denies lip swelling, Denies throat swelling , Denies wheezing PMFSH - History History Provided By: Patient - Medical History Medical History: Medical History (Last Reviewed 02/16/18 @ 04:19 by Riana Monreal MD) delivery delivered HTN (hypertension) Iron deficiency anemia due to chronic blood loss Menorrhagia Mitral regurgitation - Surgical History Surgical History: Surgical History (Last Reviewed 02/16/18 @ 04:19 by Riana Monreal MD) No history of previous surgery - Tobacco History Second Hand Smoke Exposure: Yes Tobacco Use In Past 30 Days: Yes Smoking Status: Current every day smoker Tobacco Type: Cigarettes - Alcohol History How Often Do You Have a Drink Containing Alcohol: 4 or more times a week - Substance Use History Substance History: No History of Abuse - Immunization History Tetanus Immunization: <5 Years Hx Influenza Vaccine This Season: No Medications and Allergies Active Medications: Active Medications Acetaminophen (Tylenol) 650 mg PO Q4H PRN PRN Reason: Temp > 100.4 Hydrocodone Bitart/Acetaminophen (Chromo 5/325) 1 tab PO Q6H PRN PRN Reason: Pain 1-10. Last Admin: 02/16/18 17:35 Dose: 1 tab Al Hydroxide/Mg Hydroxide (Milk Of Magnesia Liq) 30 ml PO Q12H PRN PRN Reason: Mild Constipation Atenolol (Tenormin) 50 mg PO DAILY [facility] Flumazenil (Romazecon Inj) 0.2 mg IV.PUSH Q1M PRN PRN Reason: OVERSEDATION Furosemide (Lasix) 20 mg PO DAILY [facility] Guaifenesin/Dextromethorphan (Robitussin Dm 200/20 Mg/10 Ml Liq) 10 ml PO Q6H PRN PRN Reason: COUGH Last Admin: 02/16/18 17:35 Dose: 10 ml Haloperidol Lactate (Haldol Inj) 1 mg IV.PUSH Q15M PRN PRN Reason: for severe agitation Lorazepam (Ativan) 1 mg PO Q4H PRN PRN Reason: for CIWA 8-10 Lorazepam (Ativan) 2 mg PO Q2H PRN PRN Reason: for CIWA 11-14 Lorazepam (Ativan Inj) 2 mg IV.PUSH Q2H PRN PRN Reason: for CIWA 11-14 Lorazepam (Ativan Inj) 2 mg IV.PUSH Q1H PRN PRN Reason: for CIWA 15-20 Lorazepam (Ativan Inj) 2 mg IV.PUSH Q15M PRN PRN Reason: for CIWA > 20 Lorazepam (Ativan Inj) 1 mg IV.PUSH Q4H PRN PRN Reason: for CIWA 8-10 Lorazepam (Ativan Inj) 1 mg IV.PUSH Q4H PRN PRN Reason: AGITATION Ondansetron HCl (Zofran Inj) 4 mg IV.PUSH Q6H PRN PRN Reason: NAUSEA OR VOMITING Potassium Chloride (Kcl) 10 meq PO DAILY [facility] Senna/Docusate Sodium (Kamilah-Colace) 1 tab PO BID G[facility] Last Admin: 02/16/18 09:13 Dose: 1 tab Sodium Chloride (Ns Flush) 2 ml IV.FLUSH UNSCH PRN PRN Reason: FLUSH AFTER USING IV ACCESS Temazepam (Restoril) 15 mg PO HS PRN PRN Reason: INSOMNIA Allergies Allergy/AdvReac Type Severity Reaction Status Date / Time No Known Allergies Allergy Verified 01/05/18 17:49 Home Medications Medication Instructions Recorded Confirmed Type atenolol 50 mg PO DAILY 11/06/17 02/16/18 History furosemide [Lasix] 20 mg PO DAILY 11/06/17 02/16/18 History Exam Vital signs: 02/16/18 16:42 02/16/18 16:46 Temperature 98.3 F Pulse Rate 75 Respiratory Rate 16 Blood Pressure 144/97 H Pulse Oximetry 99 96 Narrative: GENERAL: This is a well-nourished, well-developed patient, in no apparent distress. CARDIOVASCULAR: Regular rate and rhythm without murmurs, gallops, or rubs. RESPIRATORY: Clear to auscultation. Breath sounds equal bilaterally. No wheezes , rales, or rhonchi. GASTROINTESTINAL: Abdomen soft, non-tender, nondistended. Normal active bowel sounds MUSCULOSKELETAL: Extremities without clubbing, cyanosis, or edema. NEURO: Alert & Oriented x4 to person, place, time, situation. Moves all ext x4 Results - Labs CBC & Chem 7: 02/18/18 05:50 02/17/18 08:50 Labs: Cardiac Enzymes 02/16/18 Range/Units 04:00 Total Creatine Kinase 159 (26-192) U/L CK-MB (CK-2) Less than 1.0 (0.5-3.6) ng/mL Troponin I Less than 0.02 L (0.02-0.05) ng/mL Liver Function 02/16/18 Range/Units 04:00 Total Bilirubin 0.1 L (0.2-1.0) mg/dL AST 11 L (15-37) U/L ALT 17 (10-53) U/L Alkaline Phosphatase 47 (45-117) U/L Albumin 3.8 (3.4-5.0) g/dL Urine 02/16/18 Range/Units 04:45 Urine Color Colorless (Yellw/Straw) Urine Clarity Clear (Clear) Urine pH 7.0 (5.0-8.5) Ur Specific [place] 1.003 (1.002-1.035) Urine Protein Negative (Neg-Trace) mg/dL Urine Glucose (UA) Negative (Negative) mg/dL - Imaging Pelvis Ultrasound 02/16/18 00:00 1. Interval enlargement of suspected mid uterine leiomyoma now measuring up to 5.8 cm in comparison to 4.7 cm on prior exam. 2. Small 2.3 cm left ovarian cyst. This is almost certainly benign. Chest X-Ray 02/16/18 03:53 No acute cardiopulmonary process. Head CT 02/16/18 04:01 CONCLUSION: Negative noncontrast head CT. . Caprini VTE Risk Assessment Caprini VTE Risk Assessment: No/Low Risk (score <= 1) Caprini Risk Assessment Model: Point Value = 1 Point Value = 2 Point Value = 3 Point Value = 5 Age 41-60 Minor surgery BMI > 25 kg/m2 Swollen legs Varicose veins or History of unexplained or recurrent spontaneous Oral contraceptives or hormone replacement Sepsis (< 1 month) Serious lung disease, including pneumonia (< 1 month) Abnormal pulmonary function Acute myocardial infarction Congestive heart failure (< 1 month) History of inflammatory bowel disease Medical patient at bed rest Age 61-74 Arthroscopic surgery Major open surgery (> 45 min) Laparoscopic surgery (> 45 min) Malignancy Confined to bed (> 72 hours) Immobilizing plaster cast Central venous access Age >= 75 History of VTE Family history of VTE Factor V Leiden Prothrombin [id number] Lupus anticoagulant Anticardiolipin antibodies Elevated serum homocysteine Heparin-induced thrombocytopenia Other congenital or acquired thrombophilia Stroke (< 1 month) Elective arthroplasty Hip, pelvis, or leg fracture Acute spinal cord injury (< 1 month) Prophylaxis Regimen: Total Risk Factor Score Risk Level Prophylaxis Regimen 0-1 Low Early ambulation 2 Moderate Order ONE of the following: *Sequential Compression Device (SCD) *Heparin 5000 units SQ BID 3-4 Higher Order ONE of the following medications: *Heparin 5000 units SQ TID *Enoxaparin/Lovenox 40 mg SQ daily (WT < 150 kg, CrCl > 30 mL/min) *Enoxaparin/Lovenox 30 mg SQ daily (WT < 150 kg, CrCl > 10-29 mL/min) *Enoxaparin/Lovenox 30 mg SQ BID (WT < 150 kg, CrCl > 30 mL/min) AND/OR *Sequential Compression Device (SCD) 5 or more Highest Order ONE of the following medications: *Heparin 5000 units SQ TID (Preferred with Epidurals) *Enoxaparin/Lovenox 40 mg SQ daily (WT < 150 kg, CrCl > 30 mL/min) *Enoxaparin/Lovenox 30 mg SQ daily (WT < 150 kg, CrCl > 10-29 mL/min) *Enoxaparin/Lovenox 30 mg SQ BID (WT < 150 kg, CrCl > 30 mL/min) AND *Sequential Compression Device (SCD) Assessment and Plan - Assessment (1) Chest wall pain Code(s): R07.89 - Other chest pain Status: Acute Plan: Patient is a 37-year-old female recently hospitalized at [place] in mid December with complaint of chest pain. Patient underwent transesophageal echocardiogram (01/06/18) which showed moderate mitral valve regurgitation. Patient had a Lexiscan June 2017. for myocardial ischemia. Patient has been seen by cardiology during previous hospitalization, Dr. Jamie Hwang. Heart catheterization was attempted. However, patient was unable to tolerate the procedure. Cardiology recommended coronary CTA to further evaluate the coronary anatomy. Patient left AMA. Patient return to the ER 02/16/18 with complaint of 7/10 chest pain. Patient denied diaphoresis, nausea, vomiting, or shortness of breath. Patient has a long history of heavy and painful periods. They are typically regular, however she does sometimes have breakthrough bleeding. She also has a history of fibroids, last ultrasound was in October of this year showed 4.7 cm fibroid and was otherwise negative. Also of note she has a history of alcohol use and was drinking alcohol prior to admission. Workup in the ER revealed a Hemoglobin of 5.9. 2 units of PRBCs were ordered. Patient admitted to [facility] for further evaluation and treatment. Symptomatic Anemia - Anemia d/t uterine fibroids with heavy menses - Pt transfused 2 units PRBCs - Repeat CBC - Will transfuse further if necessary DUB d/t Uterine Fibroids - Anemia secondary to heavy menses/fibroid - US of the pelvis (transvaginal) again confirmed fibroids - Appreciate input from Gynecology - Pt to receive Progesterone 300mg IM prior to Discharge & then [id number] - f/u with Gynecology outpatient for possible Hysterectomy Chest Pain - know mitral regurgitation - Pt unable to tolerate Heart catheterization during prior admission & left hospital AMA - obtain serial enzymes - NTG paste - obtain serial EKGs - telemetry - prn narcotics - anemia may also be contributing to pt's chest pain - see above. (2) Microcytic hypochromic anemia Code(s): D50.9 - Iron deficiency anemia, unspecified Status: Acute (3) DUB (dysfunctional uterine bleeding) Code(s): N93.8 - Other specified abnormal uterine and vaginal bleeding Status : Acute (4) HTN (hypertension) Code(s): I10 - Essential (primary) hypertension Status: Acute (5) Valvular heart disease Code(s): I38 - Endocarditis, valve unspecified Status: Acute (6) Mitral valve regurgitation Code(s): I34.0 - Nonrheumatic mitral (valve) insufficiency Status: Acute (7) Intramural and submucous leiomyoma of uterus Code(s): D25.1 - Intramural leiomyoma of uterus; D25.0 - Submucous leiomyoma of uterus Status: Acute (8) Symptomatic anemia Code(s): D64.9 - Anemia, unspecified Status: Acute H&P: Quality - VTE Deep Vein Thrombosis/Pulmonary Embolism Present on Admission: No
[2018-02-16 19:00] LABS: Hematocrit 24.8 % (35.0-46.0); Hemoglobin 7.5 gm/dL (11.6-15.3)
[2018-02-17] MEDS: Senna/Docusate Sodium 8.6/50 MG Tablet PO SCH ×3 (00:06→20:15)
[2018-02-17] MEDS ORDERED: Morphine Inj 4 MG/ML Vial IV.PUSH ONE (03:15)
[2018-02-17] MEDS ORDERED: Furosemide 40 MG Tablet PO ONE (03:30)
[2018-02-17 07:55] VITALS: RESP 18
[2018-02-17] MEDS: Potassium Chloride 10 MEQ ER Capsule PO SCH (09:14)
[2018-02-17] MEDS: Atenolol 50 MG Tablet PO SCH (09:14)
[2018-02-17] MEDS: Furosemide 20 MG Tablet PO SCH (09:15)
[2018-02-17 09:16] LABS: Baso # (Auto) 0.1 th/mm3 (0.0-0.2); Baso % (Auto) 0.6 % (0.0-2.0); Eos % (Auto) 0.2 % (0.0-4.0); Hemoglobin 7.8 gm/dL (11.6-15.3); Lymph # (Auto) 0.7 th/mm3 (1.0-4.8); Mean Corpuscular Hemoglobin 21.1 pg (27.0-34.0); Mean Corpuscular Volume 70.5 fL (80.0-100.0); Mean Platelet Volume 7.1 fL (7.0-11.0); Mono # (Auto) 0.9 th/mm3 (0.0-0.9); Mono % (Auto) 8.2 % (0.0-8.0); Neut # (Auto) 9.7 th/mm3 (1.8-7.7); Platelet Count 381 th/mm3 (150-450); Red Blood Count 3.69 mil/mm3 (4.00-5.30); Red Cell Distribution Width 22.4 % (11.6-17.2); White Blood Count 11.3 th/mm3 (4.0-11.0)
[2018-02-17 09:17] LABS: Mean Corpuscular HGB Conc 29.9 % (32.0-36.0)
[2018-02-17 09:39] LABS: Anion Gap 7 meq/L (5-15); Blood Urea Nitrogen 10 mg/dL (7-18); Calcium 8.4 mg/dL (8.5-10.1); Carbon Dioxide 25.2 meq/L (21.0-32.0); Chloride 106 meq/L (98-107); Glomerular Filtration Rate 75 mL/min (>89); Glucose,Random 90 mg/dL (74-106); Potassium 3.5 meq/L (3.5-5.1); Sodium 138 meq/L (136-145)
[2018-02-17] MEDS ORDERED: Sodium Chlor 0.9% Inj 250 ML IV.SIG SCH (10:00)
--- NOTE | 2018-02-17 10:30 | P.PNIM ---
Subjective Interval history: Continued complaints of chest pain overnight. Chest pain improved with morphine. Physical Exam Vital signs: 02/17/18 07:54 02/17/18 07:58 Temperature 99.7 F H Pulse Rate 89 Respiratory Rate 18 18 Blood Pressure 165/87 H Pulse Oximetry 96 Narrative: GENERAL: This is a well-nourished, well-developed patient, in no apparent distress. CARDIOVASCULAR: Regular rate and rhythm without murmurs, gallops, or rubs. RESPIRATORY: Clear to auscultation. Breath sounds equal bilaterally. No wheezes , rales, or rhonchi. GASTROINTESTINAL: Abdomen soft, non-tender, nondistended. Normal active bowel sounds MUSCULOSKELETAL: Extremities without clubbing, cyanosis, or edema. NEURO: Alert & Oriented x4 to person, place, time, situation. Moves all ext x4 Results - Labs CBC & Chem 7: 02/18/18 05:50 02/17/18 08:50 - Imaging Pelvis Ultrasound 02/16/18 00:00 1. Interval enlargement of suspected mid uterine leiomyoma now measuring up to 5.8 cm in comparison to 4.7 cm on prior exam. 2. Small 2.3 cm left ovarian cyst. This is almost certainly benign. Assessment and Plan - Assessment (1) Chest wall pain Code(s): R07.89 - Other chest pain Status: Acute Plan: Patient is a 37-year-old female recently hospitalized at [place] in mid December with complaint of chest pain. Patient underwent transesophageal echocardiogram (01/06/18) which showed moderate mitral valve regurgitation. Patient had a Lexiscan June 2017. for myocardial ischemia. Patient has been seen by cardiology during previous hospitalization, Dr. Jamie Hwang. Heart catheterization was attempted. However, patient was unable to tolerate the procedure. Cardiology recommended coronary CTA to further evaluate the coronary anatomy. Patient left AMA. Patient return to the ER 02/16/18 with complaint of 7/10 chest pain. Patient denied diaphoresis, nausea, vomiting, or shortness of breath. Patient has a long history of heavy and painful periods. They are typically regular, however she does sometimes have breakthrough bleeding. She also has a history of fibroids, last ultrasound was in October of this year showed 4.7 cm fibroid and was otherwise negative. Also of note she has a history of alcohol use and was drinking alcohol prior to admission. Workup in the ER revealed a Hemoglobin of 5.9. 2 units of PRBCs were ordered. Patient admitted to [facility] for further evaluation and treatment. Symptomatic Anemia - Anemia d/t uterine fibroids with heavy menses - Pt transfused 2 units PRBCs (02/16) - Hg 5.9 (02/16), 7.8 (02/17) - transfuse additional 2 units PRBCs today - Repeat CBC in AM DUB d/t Uterine Fibroids - Anemia secondary to heavy menses/fibroid - Pelvis Ultrasound 02/16/18 00:00 1. Interval enlargement of suspected mid uterine leiomyoma now measuring up to 5.8 cm in comparison to 4.7 cm on prior exam. 2. Small 2.3 cm left ovarian cyst. This is almost certainly benign. - Appreciate input from Gynecology - Pt to receive Progesterone 300mg IM prior to Discharge & then [id number] - f/u with Gynecology outpatient for possible Hysterectomy Chest Pain - know mitral regurgitation - Pt unable to tolerate Heart catheterization during prior admission & left hospital AMA - serial enzymes <0.02, 0.03, <0.02 - serial EKGs did NOT show acute ischemic changes - NTG paste - telemetry - anemia may also be contributing to pt's chest pain - Case d/w CP Cardiology, Dr. Jamie Hwang - Dr. Hwang again recommended coronary angiogram. - Coronary angiogram was recommended during prior hospitalization, but pt left AMA before test could be performed - will need transfusion of additional 2 units PRBCs prior to test - I have ordered coronary angiogram for 02/18 - IV morphine prn chest pain (2) Microcytic hypochromic anemia Code(s): D50.9 - Iron deficiency anemia, unspecified Status: Acute (3) DUB (dysfunctional uterine bleeding) Code(s): N93.8 - Other specified abnormal uterine and vaginal bleeding Status : Acute (4) HTN (hypertension) Code(s): I10 - Essential (primary) hypertension Status: Acute (5) Valvular heart disease Code(s): I38 - Endocarditis, valve unspecified Status: Acute (6) Mitral valve regurgitation Code(s): I34.0 - Nonrheumatic mitral (valve) insufficiency Status: Acute (7) Intramural and submucous leiomyoma of uterus Code(s): D25.1 - Intramural leiomyoma of uterus; D25.0 - Submucous leiomyoma of uterus Status: Acute (8) Symptomatic anemia Code(s): D64.9 - Anemia, unspecified Status: Acute
--- NOTE | 2018-02-17 10:55 | P.OBGPN ---
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 She reports pink tinged vaginal fluid without significant bleeding. Her last period was about 1 week ago, but she often has breakthrough bleeding. Exam: General - well appearing, no acute distress Cardiac - RRR without murmur Pulmonary - CTA b/l w/o increased WOB Abdominal - positive BS Extremities - strong peripheral pulses Assessment and Plan 37 year old female who presented with chest pain and anemia who has a history of heavy menses and a uterine fibroid Anemia secondary to heavy menses / fibroid uterus -US of the pelvis showed 5.8 cm (4.7 cm on prior exam) and benign appearing 2.3 cm left ovarian cyst -Hemoglobin 7.5 s/p 2u PRBC yesterday, 7.8 this morning -Progesterone 300 IM before discharge and q3 months afterwards at that dosage, avoid estrogen due to her smoking history. There is minimal active bleeding at this time and it is not urgent that this be given. We recommend waiting until more stable/feeling better. -Needs outpatient follow up with PRODUCTION MACHINE COMPUTER OPERATOR or family medicine We appreciate your consultation, please let us know if our continued assistance is necessary
[2018-02-17] MEDS: Sod Chloride 0.9% Inj 1,000 ML IV.CONT SCH (12:34)
[2018-02-17] MEDS: Morphine Sulfate Inj 2 MG/ML Vial IM PRN ×2 (14:29→21:59)
[2018-02-18] MEDS: Morphine Sulfate Inj 2 MG/ML Vial IM PRN ×2 (05:01→11:55)
[2018-02-18 06:59] LABS: Baso # (Auto) 0.1 th/mm3 (0.0-0.2); Baso % (Auto) 0.9 % (0.0-2.0); Eos % (Auto) 0.4 % (0.0-4.0); Hematocrit 27.9 % (35.0-46.0); Hemoglobin 8.9 gm/dL (11.6-15.3); Lymph % (Auto) 10.7 % (9.0-44.0); Mean Corpuscular HGB Conc 31.9 % (32.0-36.0); Mean Corpuscular Hemoglobin 23.2 pg (27.0-34.0); Mean Corpuscular Volume 72.9 fL (80.0-100.0); Mean Platelet Volume 7.1 fL (7.0-11.0); Mono # (Auto) 0.9 th/mm3 (0.0-0.9); Mono % (Auto) 9.5 % (0.0-8.0); Neut # (Auto) 7.5 th/mm3 (1.8-7.7); Neut % (Auto) 78.5 % (16.0-70.0); Platelet Count 285 th/mm3 (150-450); Red Blood Count 3.82 mil/mm3 (4.00-5.30); Red Cell Distribution Width 23.5 % (11.6-17.2); White Blood Count 9.5 th/mm3 (4.0-11.0)
[2018-02-18] MEDS ORDERED: Nitroglycerin SL (Override) 0.4 MG Tab SL ONE (09:40)
[2018-02-18] MEDS: Potassium Chloride 10 MEQ ER Capsule PO SCH (11:51)
[2018-02-18] MEDS: Atenolol 50 MG Tablet PO SCH (11:52)
[2018-02-18] MEDS: Senna/Docusate Sodium 8.6/50 MG Tablet PO SCH (11:52)
[2018-02-18] MEDS: Furosemide 20 MG Tablet PO SCH (11:52)
--- NOTE | 2018-02-18 12:35 | CT ---
EXAM DATE: 02/18/2018 12:03 PM EDT AGE/SEX: 37 years / Female INDICATIONS: Substernal chest pain for one week. CLINICAL DATA: This is the patient's initial encounter. Patient reports that signs and symptoms have been present for 1 week and indicates a pain score of 7/10. MEDICAL/SURGICAL HISTORY: Cardiovascular disease. Hypertension. section. RADIATION DOSE: 10.93 CTDI (mGy) COMPARISON: No prior exams available for comparison. TECHNIQUE: Volumetric scanning was performed using a multi-row detector CT scanner during bolus inf usion of 80 ml Omnipaque 350 (iohexol) nonionic water-soluble contrast as a single exam dose. Image s were reconstructed using a retrospective gating algorithm including single sector and multi-sector algorithms at multiple phases of the cardiac cycle. Images were interpreted using a combination of 2D and 3D visualization modes including curved planar reformation, thin slab maximum intensity projecti on and volume rendering. Using automated exposure control and adjustment of the mA and/or kV accordin g to patient size, radiation dose was kept as low as reasonably achievable to obtain optimal diagnost ic quality images. DICOM format image data is available electronically for review and comparison. FINDINGS: Examination quality is less than optimal secondary to less than optimal opacification of the coronary arteries. VESSEL ANALYSIS: There are three aortic valve leaflets with normal origin of the coronary ostia. DOMINANCE: The coronary system is right dominant. LEFT MAIN: Normal size vessel without calcification or stenosis. LAD: Normal size vessel without calcification or definite stenosis. CIRCUMFLEX: Normal size vessel without calcification or definite stenosis. RCA: Normal size vessel without calcification or definite stenosis OTHER: There is trace pleural fluid bilaterally with smooth septal thickening in the lower lobes dora aterally. CONCLUSION: 1. Examination quality is less than optimal given less than optimal opacification of the coronary ar teries. However, there is no coronary artery calcification and no definite significant stenosis is id entified. 2. Findings suggesting pulmonary edema with smooth septal thickening in the lower lobes and trace dora ateral pleural effusions. Electronically signed by: Melvin Corley MD 02/18/2018 12:34 PM EDT
--- NOTE | 2018-02-18 15:05 | P.DS ---
Date of admission: 02/16/18 06:05 Primary care physician: No Primary Care Physician Attending physician on discharge: Ike Merino Anticipated date of discharge: 02/18/18 Brief History from admission: Patient is a 37-year-old female recently hospitalized at [facility] in mid December with complaint of chest pain. Patient underwent transesophageal echocardiogram (01/06/18) which showed moderate mitral valve regurgitation. Patient had a Lexiscan June 2017. for myocardial ischemia. Patient has been seen by cardiology during previous hospitalization, Dr. Jamie Hwang. Heart catheterization was attempted. However, patient was unable to tolerate the procedure. Cardiology recommended coronary CTA to further evaluate the coronary anatomy. Patient left AMA. Patient return to the ER 02/16/18 with complaint of 7/10 chest pain. Patient denied diaphoresis, nausea, vomiting, or shortness of breath. Patient has a long history of heavy and painful periods. They are typically regular, however she does sometimes have breakthrough bleeding. She also has a history of fibroids, last ultrasound was in October of this year showed 4.7 cm fibroid and was otherwise negative. Also of note she has a history of alcohol use and was drinking alcohol prior to admission. Workup in the ER revealed a Hemoglobin of 5.9. 2 units of PRBCs were ordered. Patient admitted to [facility] for further evaluation and treatment. PMH: - Mitral valve regurgitation, moderate - Hypertension - Iron deficiency anemia due to chronic blood loss - Menorrhagia - Uterine fibroids PSH: -Bilateral tubal ligation FHX: -Noncontributory SHX: - Current smoker - Drinks alcohol, drinking alcohol prior to this admission - Denies illicit drug use ALL: NKDA DS: Diagnosis - Discharge Diagnosis (1) Chest wall pain Status: Acute (2) Microcytic hypochromic anemia Status: Acute (3) DUB (dysfunctional uterine bleeding) Status: Acute (4) HTN (hypertension) Status: Acute (5) Valvular heart disease Status: Acute (6) Mitral valve regurgitation Status: Acute (7) Intramural and submucous leiomyoma of uterus Status: Acute (8) Symptomatic anemia Status: Acute DS: Medications - Discharge Medications Prescriptions: fluconazole [Diflucan] 100 mg PO DAILY 3 Days #3 tab DS: Summary Hospital Course: - Assessment (1) Chest wall pain Code(s): R07.89 - Other chest pain Status: Acute Plan: Patient is a 37-year-old female recently hospitalized at [facility] in mid December with complaint of chest pain. Patient underwent transesophageal echocardiogram (01/06/18) which showed moderate mitral valve regurgitation. Patient had a Lexiscan June 2017. for myocardial ischemia. Patient has been seen by cardiology during previous hospitalization, Dr. Jamie Hwang. Heart catheterization was attempted. However, patient was unable to tolerate the procedure. Cardiology recommended coronary CTA to further evaluate the coronary anatomy. Patient left AMA. Patient return to the ER 02/16/18 with complaint of 7/10 chest pain. Patient denied diaphoresis, nausea, vomiting, or shortness of breath. Patient has a long history of heavy and painful periods. They are typically regular, however she does sometimes have breakthrough bleeding. She also has a history of fibroids, last ultrasound was in October of this year showed 4.7 cm fibroid and was otherwise negative. Also of note she has a history of alcohol use and was drinking alcohol prior to admission. Workup in the ER revealed a Hemoglobin of 5.9. 2 units of PRBCs were ordered. Patient admitted to [facility] for further evaluation and treatment. Symptomatic Anemia - Anemia d/t uterine fibroids with heavy menses - Pt transfused 2 units PRBCs (02/16) - Hg 5.9 (02/16), 7.8 (02/17) - transfuse additional 2 units PRBCs (02/17) - Hg 8.9 (02/18) DUB d/t Uterine Fibroids - Anemia secondary to heavy menses/fibroid - Pelvis Ultrasound 02/16/18 00:00 1. Interval enlargement of suspected mid uterine leiomyoma now measuring up to 5.8 cm in comparison to 4.7 cm on prior exam. 2. Small 2.3 cm left ovarian cyst. This is almost certainly benign. - Appreciate input from Gynecology - Pt to receive Progesterone 300mg IM prior to Discharge & then [id number] - f/u with Gynecology outpatient for possible Hysterectomy, Vale Kulkarni. Chest Pain - know mitral regurgitation - Pt unable to tolerate Heart catheterization during prior admission & left hospital AMA - serial enzymes <0.02, 0.03, <0.02 - serial EKGs did NOT show acute ischemic changes - NTG paste - telemetry - anemia may also be contributing to pt's chest pain - Case d/w CP Cardiology, Dr. Jamie Hwang - Dr. Hwang again recommended coronary angiogram. - Coronary angiogram was recommended during prior hospitalization, but pt left AMA before test could be performed - will need transfusion of additional 2 units PRBCs prior to test - coronary angiogram 02/18 --> NO evidence of Coronary disease - f/u with [facility], Dr. Irma Hernandez in 2 weeks (2) Microcytic hypochromic anemia Code(s): D50.9 - Iron deficiency anemia, unspecified Status: Acute (3) DUB (dysfunctional uterine bleeding) Code(s): N93.8 - Other specified abnormal uterine and vaginal bleeding Status : Acute (4) HTN (hypertension) Code(s): I10 - Essential (primary) hypertension Status: Acute (5) Valvular heart disease Code(s): I38 - Endocarditis, valve unspecified Status: Acute (6) Mitral valve regurgitation Code(s): I34.0 - Nonrheumatic mitral (valve) insufficiency Status: Acute (7) Intramural and submucous leiomyoma of uterus Code(s): D25.1 - Intramural leiomyoma of uterus; D25.0 - Submucous leiomyoma of uterus Status: Acute (8) Symptomatic anemia Code(s): D64.9 - Anemia, unspecified Status: Acute - Time Spent with Patient Total time spent providing and/or coordinating discharge services: Greater than 30 minutes - Quality: VTE Deep Vein Thrombosis/Pulmonary Embolism Present on Admission: No Exam Vital signs: Vital Signs 02/17/18 15:18 02/17/18 15:37 02/17/18 16:00 Temperature 98.7 F 98.5 F Pulse Rate 78 85 82 Respiratory Rate 18 18 Blood Pressure 141/89 H 143/88 H Pulse Oximetry 98 02/17/18 17:48 02/17/18 18:09 02/17/18 20:00 Temperature 99.2 F 98.8 F 98.6 F Pulse Rate 83 82 93 H Respiratory Rate 18 18 18 Blood Pressure 142/84 H 139/74 144/89 H Pulse Oximetry 99 100 99 02/18/18 00:00 02/18/18 04:00 02/18/18 05:57 Temperature 99.5 F 98.7 F Pulse Rate 85 79 Respiratory Rate 18 18 Blood Pressure 137/77 150/90 H Pulse Oximetry 96 94 L 97 02/18/18 08:00 02/18/18 08:36 02/18/18 09:51 Temperature 98.0 F Pulse Rate 77 Respiratory Rate 18 18 Blood Pressure 152/104 H Pulse Oximetry 96 96 02/18/18 12:58 Temperature 99.2 F Pulse Rate 74 Respiratory Rate 18 Blood Pressure 149/95 H Pulse Oximetry 100 Intake & Output 02/17/18 02/18/18 02/18/18 18:59 06:59 18:59 Intake Total 760 / 760 680 / 680 50 / 50 Balance 760 / 760 680 / 680 50 / 50 Weight 80.8 kg Intake: IV 50 / 50 NS Inj 250 ML @ 15 mls/hr IV. 50 / 50 SIG ONCE GALILEO Rx#:[id number] Oral 360 / 360 680 / 680 Intake (Blood Product) Amt 400 / 400 Rbc As-3 Leukoreduced Unit 400 / 400 [id number] Rbc As-3 Leukoreduced Unit 0 / 0 [id number] Other: # Voids 2 2 Date of Last Bowel Movement 02/17/18 02/17/18 02/17/18 Results Procedures completed during hospitalization: see hospital course Labs on day of discharge: Labs from last 24 hours 02/18/18 02/17/18 02/16/18 05:50 09:41 04:50 WBC 9.5 RBC 3.82 L Hgb 8.9 L Hct 27.9 L MCV 72.9 L MCH 23.2 L MCHC 31.9 L RDW 23.5 H Plt Count 285 MPV 7.1 Neut % (Auto) 78.5 H Lymph % (Auto) 10.7 [place] % (Auto) 9.5 H Eos % (Auto) 0.4 Baso % (Auto) 0.9 Neut # (Auto) 7.5 Lymph # (Auto) 1.0 [place] # (Auto) 0.9 Eos # (Auto) 0.0 Baso # (Auto) 0.1 WBC Differential . Differential Comment Auto diff final MTS Gel Crossmatch See Detail See Detail - Impressions ITS Impressions Pelvis Ultrasound 02/16/18 00:00 CONCLUSION: 1. Interval enlargement of suspected mid uterine leiomyoma now measuring up to 5.8 cm in comparison to 4.7 cm on prior exam. 2. Small 2.3 cm left ovarian cyst. This is almost certainly benign. Chest X-Ray 02/16/18 03:53 CONCLUSION: No acute cardiopulmonary process. Head CT 02/16/18 04:01 CONCLUSION: Negative noncontrast head CT. . Coronary Angiography CT 02/18/18 08:00 CONCLUSION: 1. Examination quality is less than optimal given less than optimal opacification of the coronary arteries. However, there is no coronary artery calcification and no definite significant stenosis is identified. 2. Findings suggesting pulmonary edema with smooth septal thickening in the lower lobes and trace bilateral pleural effusions. Discharge Plan - Discharge Disposition Patient Disposition: 01 Discharge Home - Discharge Condition Condition: Stable - Discharge Order Discharge Orders: Discharge Order (Routine); Ordered 02/18/18 Ordered By: Ike Merino - Physicians Team Primary Care Provider: Primary Care Physici,No Attending Provider: Ike Merino Other Providers: Jose Ramon Maguire MD ; Mansoor Tejada MD
[2018-02-18] MEDS ORDERED: Fluconazole 100 MG Tablet PO ONE (15:19)
[2018-02-18 15:56] VITALS: BP 151/79; PULSE 78; TEMP 98; O2SAT 99
--- NOTE | 2018-02-20 17:55 | ECG ---
Date Performed: 02/17/2018 Time Performed: 07:13:09 PTAGE: 37 years EKG: Sinus rhythm NORMAL ECG INTERPRETATION BASED ON A DEFAULT AGE OF 42 YEARS PREVIOUS TRACING : 02/16/2018 19.25 Since the previous tracing, no significant change not ed DOCTOR: Hari Robledo Interpretating Date/Time 02/20/2018 17:53:51
--- NOTE | 2018-02-20 17:55 | ECG ---
Date Performed: 02/16/2018 Time Performed: 19:25:11 PTAGE: 37 years EKG: Sinus rhythm WITH FIRST DEGREE AV BLOCK ABNORMAL ECG PREVIOUS TRACING : 02/16/2018 03.53 Since the previous tracing, no significant change noted DOCTOR: Hari Robledo Interpretating Date/Time 02/20/2018 17:54:05
== END 2018-02-18 18:00 | disposition home or self-care (01) ==
LOC: NEPC 03:38 → NEDA 06:05 → H7ONC 07:48 → N04 02-17 13:49
PROVIDERS: ADMIT Hospitalist; ATTEND Hospitalist